=== PATIENT | female | born 1945 | race Caucasian/White ===

== ENCOUNTER 2020-04-08 14:09 | Outpatient (CLI) | payer MEDICARE, BC, SELFPAY ==
--- NOTE | ~2020-04-08 | DEXA_ITS ---
Bone Density Report Name: Thuy Chan Age: 75 Sex: Female Ethnicity: White Date of : 1945 Indication: postmenopausal; height loss; inflammatory bowel disease; prior fracture; hysterectomy; Referring Provider: JOAQUIN LARSEN Study: Bone densitometry was performed. Exam Date: April 08, 2020 Accession number: [id number] Bone Density: Region BMD T-score Z-score Classification AP Spine (L1, L2, L3) 1.067 0.4 2.9 Normal Femoral Neck (Left) 0.615 -2.1 0.1 Osteopenia Total Hip (Left) 0.737 -1.7 0.2 Osteopenia Total Hip Bilateral Avg 0.769 -1.5 0.4 Osteopenia Femoral Neck (Right) 0.693 -1.4 0.8 Osteopenia Total Hip (Right) 0.801 -1.2 0.7 Osteopenia World Health Organization criteria for BMD impression classify patients as: Normal (T-score at or above -1.0), Osteopenia (T-score between -1.0 and -2.5), or Osteoporosis (T-score at or below -2.5). 10-year Fracture Risk(1): Major Osteoporotic Fracture 23% Hip Fracture 8.9% Reported Risk Factors: [place] (), Neck BMD=0.615, BMI=24.8, previous fracture, smoking (1) FRAX(R) Version 3.08. Fracture probability calculated for an untreated patient. Fracture probability may be lower if the patient has received treatment. Clinical Information Provided by Patient: Has had a low trauma fracture Smokes Has used the following medications: Vitamin D, Calcium Has the following medical conditions: Inflammatory bowel diseases, Hysterectomy Patient maximum height was 64 Menopause Age: 37 Drinks caffeinated beverages Onset of menses at age 14 Number of children 2 Impression: The patient has low bone mass, based on the Left Femoral Neck T-score. The patient has an estimated ten-year risk of hip fracture of 8.9% and an estimated ten-year risk of major fracture of 23%, based on the WHO FRAX algorithm. The patient has risk factors, including: smoking, previous fracture. Discussion: BONE DENSITY IS LOW AT ONE OR MORE SKELETAL SITES. THE PATIENT'S BMD AND CLINICAL RISK FACTORS CONTRIBUTE TO THIS PATIENT'S HIGH RISK OF FRACTURE. This patient's lowest T-score is low at one or more skeletal sites. It meets the World Health Organization's (WHO) criteria for ?low bone mass? (T-score between -1.0 and -2.5). The patient's 10-year risk of hip fracture and 10 year risk of a major osteoporotic fracture as calculated by FRAX exceeds the threshold where pharmacological therapy is recommended by the National Osteoporosis Foundation (NOF). However, all treatment decisions require clinical judgment and consideration of individual patient factors, including patient preferences, comorbidities, previous drug use, risk factors not captured in the FRAX model (e.g., frailty, falls, vitamin D deficiency, increased bone turnover, interval significant decline in bone density) and
== END 2020-04-08 14:10 | disposition home or self-care (01) ==
PROVIDERS: PCP Family Medicine; Visit Provider Orthopaedic Surgery
DX: Z78.0 Asymptomatic menopausal state (principal); M85.852 Other specified disorders of bone density and structure, left thigh; M85.851 Other specified disorders of bone density and structure, right thigh
CPT/HCPCS: 77080

== ENCOUNTER 2022-12-21 07:39 | Inpatient (IN) | payer MEDICARE, SELFPAY ==
[2022-12-21] VITALS (33 sets, daily range): BP systolic 116–159; BP diastolic 64–114; PULSE 97–124; RESP 14–33; TEMP 36.2–37; O2SAT 93–100; BMI 23.8
--- NOTE | ~2022-12-21 | XR_ITS ---
EXAMINATION: XR chest 2V DATE: 12/21/2022 08:47 INDICATION: Cough and shortness of breath. TECHNIQUE: Frontal and lateral views of the chest were obtained. COMPARISON: Chest 2 views 05/19/2019 FINDINGS: There are small pleural effusions. There are airspace and interstitial opacities in the mid and lower lung zones with a basilar predominance. No pneumothorax. Cardiomegaly is noted. IMPRESSION: 1. Small pleural effusions. 2. Airspace and interstitial opacities in the mid and lower lung zones with a basilar predominance, c onsistent with pulmonary edema and/or pneumonia. 3. Cardiomegaly. Reviewed, dictated and finalized at location A. IMPRESSION: 1. Small pleural effusions. 2. Airspace and interstitial opacities in the mid and lower lung zones with a b asilar predominance, consistent with pulmonary edema and/or pneumonia. 3. Cardiomegaly.
--- NOTE | 2022-12-21 07:48 | ECG_ITS ---
Measurements Intervals [place] Rate: 117 P: -27 UT: 141 QRS: -38 QRSD: 146 T: 114 QT: 371 QTc: 519 Interpretive Statements SINUS OR ECTOPIC ATRIAL TACHYCARDIA LEFT AXIS DEVIATION LEFT BUNDLE BRANCH BLOCK BASELINE ARTIFACT- I, II, III, AVR, AVL, AVF ABNORMAL ECG NO PREVIOUS ECG AVAILABLE FOR COMPARISON Electronically Signed On 12-21-2022 9:02:42 CDT by Melchor Waters D.O.
--- NOTE | 2022-12-21 07:53 | ED.SOB ---
HPI - SOB/Dyspnea General Chief Complaint: Shortness of Breath/Dyspnea Stated Complaint: SOB Time Seen by Provider: 12/21/22 07:42 History of Present Illness HPI Narrative: Pt presents with worsening SOB. Pt seen at [facility] ED yesterday and diagnosed with pneumonia. Pt treated with nebs and steroids and given IV antibiotics and discharged. Pt says she was unable to sleep all night because she was so short of breath. 911 called. Pt got neb and steroids in route which improved her somewhat. Pt denies fever or CP. Related Data Home Medications Medication Instructions Recorded Confirmed omeprazole magnesium 20 mg 20 mg PO DAILY 05/09/19 12/21/22 tablet,delayed release (Prilosec OTC) bisoprolol 5 1 tablet PO DAILY 12/21/22 12/21/22 mg-hydrochlorothiazide 6.25 mg tablet paroxetine HCl 20 mg tablet 20 mg PO DAILY 12/21/22 12/21/22 ropinirole 0.5 mg tablet 0.5 mg PO DAILY 12/21/22 12/21/22 Allergies Allergy/AdvReac Type Severity Reaction Status Date / Time codeine Allergy Unknown Stomatitis Verified 06/11/22 14:30 oxycodone AdvReac Intermediate Unknown Verified 06/11/22 14:30 Review of Systems Review of Systems: All systems reviewed & are unremarkable except as noted in HPI and below PMFSH Past Medical History Medical History (Updated 12/21/22 @ 16:34 by Vannessa Hawkins NP) Anxiety Chronic diarrhea Fatigue Hyperlipidemia Hypertension Idiopathic pancreatitis Irritable bowel syndrome Diarrhea Snoring Sphincter of Oddi dysfunction Surgical History Surgical History (Updated 12/21/22 @ 16:29 by Vannessa Hawkins NP) History of bunionectomy History of cataract extraction with lens replacement History of detached retina repair History of foot surgery History of hysterectomy Hx of cholecystectomy Family History Family History Sibling IBS (irritable bowel syndrome) Grandparent Colitis Other Carcinoma of colon Sphincter of Oddi dysfunction Social History Social History (Updated 12/21/22 @ 16:36 by Vannessa Hawkins NP) Social History: The patient continues to smoke about half pack a cigarettes a day. Patient is . She typically lives home alone but spends several days with her daughter. She has 2 children. She is retired from a [employer]. Code status full code Smoking packs per day: 1 Smoking cigarettes per day: 20.0 Years smoked: 10 Smoking pack-years: 10.00 Smoking status: Former smoker Tobacco type: cigarettes Second hand tobacco smoke exposure: No Smoking end date: 12/07/22 Alcohol intake: never Alcohol use details: Ocassional Substance use: never Substance use type: does not use Lack of Transportation: No Lack of Food: Never True Current Housing: I Have Housing Concerned About Future Housing: No Difficulty Paying Gas/Electric Bills: No Difficulty Paying for Meds: No Currently Unemployed: No Education: High School Diploma/GED Difficulty w/ Childcare or Family Care: No Living arrangements: alone Occupation/Education: retired Gender identity (if verbalized by the patient): Female Spiritual care concerns: No Exam Const: General: healthy appearing and no acute distress Nutritional Appearance: well nourished Orientation/consciousness: patient oriented x3 Limitations: no limitations Chest: Chest palpation & inspection: normal inspection of the chest Resp: Effort & Inspection: labored, retractions and tachypneic Auscultation: wheezes Cardio: Rate: regular rate Rhythm: regular rhythm GI: GI Palp: Yes Soft to palpation Auscultation: normal bowel sounds Skin: General skin exam: normal color Rashes: no rashes Neuro: General: patient oriented x3, moves all extremities, no meningeal signs, no focal motor deficits and CN's II-XI intact bilaterally Cranial nerves: Yes Nystagmus not present Speech: normal speech Extrem: General: normal to inspe
[2022-12-21] MEDS: IPRATROPIUM BR 0.02% INH SOLN 0.5 MG/2.5 ML VIAL INHALATION ×2 (08:01→20:18)
[2022-12-21] MEDS: ALBUTEROL SULFATE NEB 2.5 MG/3 ML INH INHALATION ×2 (08:01→20:18)
[2022-12-21 09:29] LABS: Basophils Absolute Auto 0.1 K/mm3 (0.0-0.1); Basophils Percent Auto 1.8 % (0.2-1.2); Eosinophils Absolute Auto 0.1 K/mm3 (0-0.3); Eosinophils Percent Auto 2.3 % (0-4.4); Hematocrit 30.8 % (37.0-47.0); Hemoglobin 9.7 g/dL (12.0-15.0); Immature Granulocyte Absolute 0.05 K/mm3 (0.00-0.031); Immature Granulocyte Percent A 0.8 % (0-0.5); Lymphocytes Absolute Auto 1.31 K/mm3 (0.9-3.2); Lymphocytes Percent Auto 21.9 % (18.3-44.2); Mean Corpuscular HGB Conc 31.5 g/dl (32-36); Mean Corpuscular Hemoglobin 27.3 pg (26-34); Mean Corpuscular Volume 86.8 fl (80-100); Mean Platelet Volume 11.2 fl (7.4-10.4); Monocytes Absolute Auto 0.5 K/mm3 (0.1-0.6); Monocytes Percent Auto 8.2 % (2.6-8.5); Neutrophils Absolute Auto 3.9 K/mm3 (1.3-6.7); Platelet Count Result 333 k/mm3 (150-375); Red Blood Count 3.55 M/mm3 (4.2-5.4); Red Cell Distribution Width 15.5 % (11.5-14.5)
[2022-12-21 09:39] LABS: INR 1.1; Prothrombin Time 14.2 Seconds (11.1-14.7)
[2022-12-21 09:41] LABS: Partial Thromboplastin Time 32.4 SECONDS (22.3-36.8)
[2022-12-21 09:44] LABS: Alanine Aminotransferase 13 U/L (6-35); Albumin Level 3.9 g/dL (3.5-5.1); Alkaline Phosphatase 88 U/L (38-126); Anion Gap 7 mmol/L (8-16); Aspartate Amino Transferase 22 U/L (14-36); Bilirubin,Total 0.7 mg/dL (0.2-1.3); Blood Urea Nitrogen 15 mg/dL (7-17); CRP 2.5 mg/dL (<1.0); Calcium 8.7 mg/dL (8.4-10.2); Carbon Dioxide 23 mmol/L (22-30); Chloride 106 mmol/L (98-107); Estimated Glomerular Filt Rate 60; Glucose 113 mg/dL (65-110); Potassium 3.6 mmol/L (3.4-5.0); Sodium 136 mmol/L (137-145)
[2022-12-21 09:50] LABS: NT Pro B Type Natriuretic Pept 12400 pg/mL (19.9-100)
[2022-12-21 10:05] LABS: Lactic Acid Reflex 1.3 mmol/L (0.7-2.0)
[2022-12-21] MEDS: FUROSEMIDE INJ 40 MG/4 ML VIAL IV PUSH (11:08)
[2022-12-21] MEDS: cefTRIAXone 2 GM/NS 100 ML 2 GM/100 ML BAG IVPB (12:37)
[2022-12-21] MEDS: AZITHROMYCIN 500 MG/NS 250 ML 500 MG/250 ML BAG 250 MG IVPB (12:38)
--- NOTE | 2022-12-21 15:33 | PM.IMHP ---
H&P: HPI History of Present Illness Date/Time: 12/21/22 15:33 Chief Complaint: Shortness of breath Narrative: This is a 77-year-old female patient who smokes approximately half of pack a cigarettes a day. The patient denies that she has any COPD. She does not wear any oxygen at home. The patient stated that she went to an outside facility yesterday and was diagnosed with pneumonia. The daughter stated that she was given a bag of antibiotics and discharged to home. The patient was having difficulty sleeping last night due to shortness of breath. The patient stated she just did not feel right today and therefore her daughter called the ambulance. She denies any fever chills. She denies any thick sputum. Chest x-ray was read as small pleural effusion. Airspace and interstitial opacities in the mid and lower lung zones with bibasilar predominance, consistent with pulmonary edema and or pneumonia. Cardiomegaly. Patient denies any history of congestive heart failure. The patient was given a nebulizer treatment, Rocephin, azithromycin, and Lasix in the emergency room. The patient is currently on oxygen at 3 L per nasal cannula and does not typically wear oxygen. The lowest recorded pulse ox today was 93%. The patient has been staying with her daughter. The patient's daughter called 911 this morning. Her H&H is 9.7 and 30.8. Her sodium is slightly low at 136. Troponin was 0.056. BNP 44456. C reactive protein 2.5. The patient is being admitted to inpatient status on the date of service of 12/21/2022. Review of Systems Review of Systems: All systems reviewed & are unremarkable except as noted in HPI and below Constitutional: Constitutional: Reports as per HPI and Reports no additional constitutional complaints Eyes: Eyes: Reports as per HPI and Reports no additional eye complaints ENT: Reports system reviewed and no additional complaints, except as documented and Reports Normal hearing present Cardiovascular: Cardiovascular: Reports no additional cardiovascular complaints Respiratory: Respiratory: Reports no additional respiratory complaints and Reports no additional respiratory complaints Gastrointestinal: Gastrointestinal: Reports as per HPI and Reports no additional gastrointestinal complaints Musculoskeletal: Musculoskeletal: Reports no additional musculoskeletal complaints Integumentary/Breasts: Skin/Breast: Reports system reviewed and no additional complaints, except as docu and Reports as per HPI Neurologic: Reports system reviewed and no additional complaints, except as documented, Reports as per HPI and Reports Normal hearing present Psychiatric: Psychiatric: Reports no additional psychiatric complaints and Reports as per HPI Endocrine: Endocrine: Reports no additional endocrine complaints Hematologic/Lymphatic: Hematologic/Lymphatic: Reports no additional hematologic/lymphatic complaints Allergic/Immunologic: Allergic/Immunologic: Reports no additional allergic/immunologic complaints [facility] Past Medical History Medical History (Updated 12/21/22 @ 16:34 by Vannessa Hawkins NP) Anxiety Chronic diarrhea Fatigue Hyperlipidemia Hypertension Idiopathic pancreatitis Irritable bowel syndrome Diarrhea Snoring Sphincter of Oddi dysfunction Surgical History Surgical History (Updated 12/21/22 @ 16:29 by Vannessa Hawkins NP) History of bunionectomy History of cataract extraction with lens replacement History of detached retina repair History of foot surgery History of hysterectomy Hx of cholecystectomy Family History Family History Sibling IBS (irritable bowel syndrome) Grandparent Colitis Other Carcinoma of colon Sphincter of Oddi dysfunction Social History Social History (Updated 12/21/22 @ 16:36 by Vannessa Hawkins NP) Social History: The patient continues to smoke about half pack a cigarettes a day. Patient is . She typically
[2022-12-21 15:49] LABS: Troponin I 0.056 ng/mL (0.000-0.034)
[2022-12-21] MEDS: LORazepam (*CRX) 1 MG TABLET PO (16:00)
[2022-12-21 19:22] LABS: Lipase 28 U/L (23-300)
[2022-12-21 19:41] LABS: Troponin I 0.069 ng/mL (0.000-0.034)
[2022-12-21] MEDS: GABAPENTIN 300 MG CAPSULE PO (20:10)
[2022-12-21 20:56] LABS: Troponin I 0.079 ng/mL (0.000-0.034)
[2022-12-22] VITALS (18 sets, daily range): BP systolic 110–128; BP diastolic 62–89; PULSE 73–108; RESP 14–20; TEMP 36.6–37.2; O2SAT 90–97; BMI 23.8
--- NOTE | 2022-12-22 | ECHO_ITS ---
Patient Info Name: Thuy Chan Age: 77 years : 1945 Gender: Female Ht: 63 in Wt: 134 lbs BSA: 1.65 m2 HR: 102 bpm BP: 121 / 63 mmHg Heart Rhythm: Sinus Rhythm Technical Quality: Good Exam Date: 12/22/2022 9:01 AM Exam Location: [facility] Card Pulmonary Patient Status: Inpatient Admit Date: 12/21/2022 Staff Ordering Physician: Vannessa Hawkins NP Personal Lines Underwriter: Isabel Jose RDCS Attending Provider: Cynthia Fu DO Referring Physician: Shruthi MAJOR; Exam Type: CA echo doppler color flow Study Info Indications - pulmonary edema Complete two-dimensional, color flow and Doppler transthoracic echocardiogram is performed. Summary 1. Complete two-dimensional, color flow and Doppler transthoracic echocardiogram is performed. 2. Normal left ventricular size with mild concentric hypertrophy. Severe global hypokinesis present. Ejection fraction 20-25%. Grade 2 diastolic dysfunction is present. 3. Mild right ventricular enlargement and hypokinesis. 4. Moderate left atrial enlargement. 5. Moderate to moderately severe mitral regurgitation. 6. Mild tricuspid regurgitation. 7. Normal estimated pulmonary pressure. 8. Normal sinus rhythm with a BBB. Left Ventricle Left ventricular chamber dimension is normal. Left ventricular systolic function is severely reduced, estimated at 20-25%. There is mildly increased left ventricular wall thickness. Left ventricular septal wall motion is normal. The left ventricular diastolic function is grade II diastolic dysfunction. Right Ventricle Right ventricular chamber dimension is mildly enlarged. Right ventricular systolic function is reduced. Linear artifact in right ventricle suggestive of catheter(s), pacemaker lead(s), or ICD lead(s). Left Atria Left atrial chamber dimension is moderately enlarged. Right Atria Right atrial chamber dimension is normal. Aortic Valve The aortic valve is trileaflet. There is no aortic valve sclerosis. There is no aortic valve stenosis. There is no aortic valve regurgitation. Pulmonic Valve The pulmonic valve is normal. There is no pulmonic valve stenosis. There is no pulmonic regurgitation. Mitral Valve The mitral valve has normal leaflets. There is no mitral valve stenosis. There is moderate to severe mitral valve regurgitation. Tricuspid Valve The tricuspid valve leaflets are normal. There is no significant tricuspid valve stenosis. There is mild tricuspid valve regurgitation. No pulmonary hypertension, estimated pulmonary arterial systolic pressure is 34 mmHg. Pericardium/Pleural The pericardium appears normal. There is no pericardial effusion. Inferior Vena Cava Normal inferior vena cava with >50% collapse upon inspiration consistent with Empty right atrial pressure, 10 mmHg. Aorta The aortic root size at the sinus of Valsalva is normal. The prox ascending aorta size is normal. Left Ventricular Outflow Tract Name Value Normal LVOT 2D LVOT Diameter 1.8 cm LVOT Doppler LVOT Peak Gradient 2 mmHg LVOT Mean Gradient 1 mmHg LVOT VTI 17 cm LVOT VTI/AV VTI Ratio 0.9
[2022-12-22] MEDS: ALBUTEROL SULFATE NEB 2.5 MG/3 ML INH INHALATION ×4 (02:15→19:22)
[2022-12-22] MEDS: IPRATROPIUM BR 0.02% INH SOLN 0.5 MG/2.5 ML VIAL INHALATION ×4 (02:15→19:23)
[2022-12-22 05:48] LABS: Basophils Percent Auto 0.3 % (0.2-1.2); Eosinophils Absolute Auto 0.2 K/mm3 (0-0.3); Eosinophils Percent Auto 2.6 % (0-4.4); Hemoglobin 8.1 g/dL (12.0-15.0); Immature Granulocyte Absolute 0.08 K/mm3 (0.00-0.031); Immature Granulocyte Percent A 1.4 % (0-0.5); Lymphocytes Absolute Auto 1.29 K/mm3 (0.9-3.2); Mean Corpuscular HGB Conc 31.2 g/dl (32-36); Mean Corpuscular Hemoglobin 27.6 pg (26-34); Mean Corpuscular Volume 88.4 fl (80-100); Mean Platelet Volume 10.8 fl (7.4-10.4); Monocytes Absolute Auto 0.6 K/mm3 (0.1-0.6); Monocytes Percent Auto 10.7 % (2.6-8.5); Neutrophils Absolute Auto 3.7 K/mm3 (1.3-6.7); Platelet Count Result 281 k/mm3 (150-375); Red Blood Count 2.94 M/mm3 (4.2-5.4); Red Cell Distribution Width 15.8 % (11.5-14.5); White Blood Count 5.9 K/mm3 (4.5-10.0)
[2022-12-22 06:04] LABS: Alanine Aminotransferase 11 U/L (6-35); Albumin Level 3.2 g/dL (3.5-5.1); Alkaline Phosphatase 63 U/L (38-126); Anion Gap 3 mmol/L (8-16); Aspartate Amino Transferase 19 U/L (14-36); Bilirubin,Total 0.3 mg/dL (0.2-1.3); Blood Urea Nitrogen 20 mg/dL (7-17); Calcium 8.3 mg/dL (8.4-10.2); Carbon Dioxide 24 mmol/L (22-30); Chloride 105 mmol/L (98-107); Creatine Kinase 87 U/L (30-135); Estimated CRCL calculation 33 ml/min; Estimated Glomerular Filt Rate 53; Glucose 109 mg/dL (65-110); Lipase 32 U/L (23-300); Magnesium 2.2 mg/dL (1.6-2.3); Potassium 3.2 mmol/L (3.4-5.0); Sodium 132 mmol/L (137-145)
[2022-12-22] MEDS: AZITHROMYCIN 500 MG/NS 250 ML 500 MG/250 ML BAG 250 MG IVPB (08:14)
[2022-12-22] MEDS: rOPINIRole HCL 0.5 MG TABLET PO (08:17)
[2022-12-22] MEDS: LIPASE/AMYLASE/PROTEASE 12,000 UNITS CAP 2 CAP PO ×3 (08:17→16:58)
[2022-12-22] MEDS: hydroCHLOROthiazide 6.25 MG TABLET PO (08:17)
[2022-12-22] MEDS: bisoproloL fumarate 5 MG TABLET PO (08:17)
[2022-12-22] MEDS: ROSUVASTATIN 20 MG TABLET 40 MG PO (08:17)
[2022-12-22] MEDS: PARoxetine 20 MG TABLET PO (08:17)
[2022-12-22] MEDS: PANTOPRAZOLE 40 MG TABLET PO (08:17)
--- NOTE | 2022-12-22 11:35 | PM.IMPN ---
Progress Note: A&P Assessment and Plan (1) Pneumonia: Code(s): J18.9 - Pneumonia, unspecified organism Status: Acute Assessment and Plan: Rocephin and azithromycin started 12/21 Home O2 eval ordered and pending (2) CHF (congestive heart failure): Code(s): I50.9 - Heart failure, unspecified Status: Acute Assessment and Plan: Echo ordered and pending, Lasix IV x1 12/21 (3) Chronic diarrhea: Code(s): K52.9 - Noninfective gastroenteritis and colitis, unspecified Status: Acute Assessment and Plan: Continue Bentyl for IBS (4) History of tobacco abuse: Onset Date: 2010 Code(s): Z87.891 - Personal history of nicotine dependence Status: Acute Assessment and Plan: Continue nicotine patch, smoking cessation recommended (5) Sphincter of Oddi dysfunction: Code(s): K83.4 - Spasm of sphincter of Oddi Status: Acute Assessment and Plan: Continue pancrease enzymes (6) Hyperlipidemia: Qualifiers: Hyperlipidemia type: mixed hyperlipidemia Qualified Code(s): E78.2 - Mixed hyperlipidemia Code(s): E78.5 - Hyperlipidemia, unspecified Status: Acute Assessment and Plan: Continue with rosuvastatin (7) Hypertension: Qualifiers: Hypertension type: essential hypertension Qualified Code(s): I10 - Essential (primary) hypertension Code(s): I10 - Essential (primary) hypertension Status: Acute Assessment and Plan: Continue with home medications. (8) Anxiety: Code(s): F41.9 - Anxiety disorder, unspecified Status: Acute Assessment and Plan: Continue with lorazepam and paroxetine (9) Idiopathic pancreatitis: Code(s): K85.00 - Idiopathic acute pancreatitis without necrosis or infection Status: Acute Assessment and Plan: Continue pancrease Plan DVT prophylaxis with SCDs GI prophylaxis with PPI Code status full code Subjective Date/time seen: 12/22/22 11:35 Interval history: 77-year-old female with history of tobacco dependence and COPD is presenting with shortness of breath after being diagnosed with pneumonia at an urgent care facility and starting antibiotics yesterday. No overnight events noted. No chest pain or shortness of breath. No nausea, vomiting or diarrhea. No fevers or chills. She still feels a little weak with occasional cough. Review of Systems Review of Systems: 12 point review of systems was assessed and was negative except as noted in the HPI Exam Narrative: General: No acute distress, alert and oriented per baseline HEENT: Atraumatic, normocephalic, mucous membranes moist CV: Regular rate and rhythm, S1, S2 Lungs: Significant crackles in left lower lobe, the rest is relatively clear, no wheeze Abdomen: Soft, nontender, nondistended Extremities: Normal to inspection Skin: No rashes noted, no lesions or wounds seen Psych: Euthymic, normal affect Objective Data Vital Signs Vital Signs: Vital Signs - 24 hr 12/21/22 12:43 12/21/22 11:46 12/21/22 12:01 Temperature Pulse Rate Respiratory Rate Blood Pressure 157/82 H 152/77 H Pulse Oximetry 98 Oxygen Delivery Nasal Cannula Oxygen Flow Rate 3 12/21/22 12:16 12/21/22 12:37 12/21/22 12:45 Temperature Pulse Rate Respiratory Rate Blood Pressure 131/64 116/74 134/67 Pulse Oximetry 95 94 Oxygen Delivery Oxygen Flow Rate 12/21/22 13:24 12/21/22 16:31 12/21/22 16:00 Temperature 97.9 F Pulse Rate 99 102 H Respiratory Rate 27 H Blood Pressure 132/74 Pulse Oximetry 94 95 Oxygen Delivery Nasal Cannula Oxygen Flow Rate 3 12/21/22 20:21 12/21/22 20:21 12/21/22 22:00 Temperature 97.1 F L Pulse Rate 98 100 Respiratory Rate 20 14 Blood Pressure 134/88 Pulse Oximetry 95 98 Oxygen Delivery Nasal Cannula Oxygen Flow Rate 3 12/21/22
[2022-12-22] MEDS: POTASSIUM CHLORIDE 20 MEQ ER TABLET 40 MEQ PO (12:07)
[2022-12-22] MEDS: GABAPENTIN 300 MG CAPSULE PO (20:43)
[2022-12-22] MEDS: LORazepam (*CRX) 1 MG TABLET PO (20:50)
[2022-12-23] VITALS (19 sets, daily range): BP systolic 105–117; BP diastolic 54–75; PULSE 75–105; RESP 16–18; TEMP 36.3–37.2; O2SAT 94–97
[2022-12-23] MEDS: IPRATROPIUM BR 0.02% INH SOLN 0.5 MG/2.5 ML VIAL INHALATION ×4 (02:03→19:56)
[2022-12-23] MEDS: ALBUTEROL SULFATE NEB 2.5 MG/3 ML INH INHALATION ×4 (02:03→19:56)
[2022-12-23] MEDS: LORazepam (*CRX) 1 MG TABLET PO ×2 (04:54→21:05)
[2022-12-23 06:39] LABS: Basophils Absolute Auto 0.1 K/mm3 (0.0-0.1); Basophils Percent Auto 1.2 % (0.2-1.2); Eosinophils Absolute Auto 0.4 K/mm3 (0-0.3); Eosinophils Percent Auto 6.1 % (0-4.4); Hematocrit 28.1 % (37.0-47.0); Hemoglobin 8.7 g/dL (12.0-15.0); Immature Granulocyte Absolute 0.04 K/mm3 (0.00-0.031); Immature Granulocyte Percent A 0.6 % (0-0.5); Lymphocytes Absolute Auto 1.97 K/mm3 (0.9-3.2); Lymphocytes Percent Auto 30.2 % (18.3-44.2); Mean Corpuscular Hemoglobin 27.7 pg (26-34); Mean Corpuscular Volume 89.5 fl (80-100); Mean Platelet Volume 11.3 fl (7.4-10.4); Monocytes Absolute Auto 0.5 K/mm3 (0.1-0.6); Monocytes Percent Auto 7.4 % (2.6-8.5); Neutrophils Absolute Auto 3.6 K/mm3 (1.3-6.7); Neutrophils Percent Auto 54.5 % (45.5-73.1); Platelet Count Result 314 k/mm3 (150-375); Red Blood Count 3.14 M/mm3 (4.2-5.4); Red Cell Distribution Width 15.9 % (11.5-14.5); White Blood Count 6.5 K/mm3 (4.5-10.0)
[2022-12-23 06:50] LABS: Alanine Aminotransferase 14 U/L (6-35); Albumin Level 3.5 g/dL (3.5-5.1); Alkaline Phosphatase 65 U/L (38-126); Anion Gap 4 mmol/L (8-16); Aspartate Amino Transferase 23 U/L (14-36); Bilirubin,Total 0.3 mg/dL (0.2-1.3); Blood Urea Nitrogen 26 mg/dL (7-17); Calcium 8.8 mg/dL (8.4-10.2); Carbon Dioxide 24 mmol/L (22-30); Chloride 103 mmol/L (98-107); Estimated CRCL calculation 30 ml/min; Estimated Glomerular Filt Rate 48; Glucose 96 mg/dL (65-110); Potassium 4.1 mmol/L (3.4-5.0); Sodium 131 mmol/L (137-145)
[2022-12-23] MEDS: PARoxetine 20 MG TABLET PO (08:36)
[2022-12-23] MEDS: AZITHROMYCIN 500 MG/NS 250 ML 500 MG/250 ML BAG 250 MG IVPB (08:36)
[2022-12-23] MEDS: PANTOPRAZOLE 40 MG TABLET PO (08:36)
[2022-12-23] MEDS: bisoproloL fumarate 5 MG TABLET PO (08:37)
[2022-12-23] MEDS: rOPINIRole HCL 0.5 MG TABLET PO (08:37)
[2022-12-23] MEDS: LIPASE/AMYLASE/PROTEASE 12,000 UNITS CAP 2 CAP PO ×3 (08:37→16:09)
[2022-12-23] MEDS: hydroCHLOROthiazide 6.25 MG TABLET PO (08:37)
[2022-12-23] MEDS: ROSUVASTATIN 20 MG TABLET 40 MG PO (08:37)
--- NOTE | 2022-12-23 10:12 | P.CDI_ITS ---
CDI Query Clarification Request Elevated BNP on 12/21/22 lab work. CHF noted on the assessment and plan. Pulmonary edema noted on the 12/21/22 chest xray. Patient receiving Lasix. Please specify type and acuity of heart failure if known. * Acute * Chronic * Acute on Chronic * Unknown * Systolic * Diastolic * Combined Systolic and Diastolic * Unknown <Katy Metz RN - Last Filed: 12/23/22 10:16> Clarified Diagnosis Clarified Diagnosis: Unknown chronicity Systolic HF <Florinda Luna MD - Last Filed: 12/23/22 12:14>
--- NOTE | 2022-12-23 12:05 | PM.IMPN ---
Progress Note: A&P Assessment and Plan (1) Pneumonia: Code(s): J18.9 - Pneumonia, unspecified organism Status: Acute (2) CHF (congestive heart failure): Code(s): I50.9 - Heart failure, unspecified Status: Acute (3) Chronic diarrhea: Code(s): K52.9 - Noninfective gastroenteritis and colitis, unspecified Status: Acute (4) History of tobacco abuse: Onset Date: 2010 Code(s): Z87.891 - Personal history of nicotine dependence Status: Acute (5) Sphincter of Oddi dysfunction: Code(s): K83.4 - Spasm of sphincter of Oddi Status: Acute (6) Hyperlipidemia: Qualifiers: Hyperlipidemia type: mixed hyperlipidemia Qualified Code(s): E78.2 - Mixed hyperlipidemia Code(s): E78.5 - Hyperlipidemia, unspecified Status: Acute (7) Hypertension: Qualifiers: Hypertension type: essential hypertension Qualified Code(s): I10 - Essential (primary) hypertension Code(s): I10 - Essential (primary) hypertension Status: Acute (8) Anxiety: Code(s): F41.9 - Anxiety disorder, unspecified Status: Acute (9) Idiopathic pancreatitis: Code(s): K85.00 - Idiopathic acute pancreatitis without necrosis or infection Status: Acute Plan 77-year-old female with history of tobacco dependence and COPD is presenting with shortness of breath after being diagnosed with pneumonia at an urgent care facility and starting antibiotics yesterday. 1)Acute Resp Failure: ?2/2 PNA+ New Diagnosis of HF(Systolic, ?acute) c/w O2 support Start on IV lasix Strict I/O Daily weight Cardiology consult c/w Ceftriaxone+Azithromycin c/w albuterol, ipratropium 2)Elevated troponin: Cardiology has been consulted as above 3)HTN:C/w HCTZ 4)DVT ppx: Hep SQ 5)Code:Full 6)Dispo:pending improvement Time Spent With Patient Time with patient: 25 - 35 minutes Subjective Date/time seen: 12/23/22 12:05 Interval history: c/o SOB On O2 support Denies chest pain Review of Systems Review of Systems: 12 point review of systems was assessed and was negative except as noted in the HPI Exam Narrative: General: No acute distress, alert and oriented per baseline HEENT: Atraumatic, normocephalic, mucous membranes moist CV: Regular rate and rhythm, S1, S2 Lungs: Significant crackles in left lower lobe, the rest is relatively clear, no wheeze Abdomen: Soft, nontender, nondistended Extremities: Normal to inspection Skin: No rashes noted, no lesions or wounds seen Psych: Euthymic, normal affect Objective Data Vital Signs Vital Signs: Vital Signs - 24 hr 12/22/22 12:17 12/22/22 13:35 12/22/22 13:45 Temperature Pulse Rate 88 91 Respiratory Rate 18 18 Blood Pressure Pulse Oximetry 95 Oxygen Delivery Nasal Cannula Oxygen Flow Rate 2 Fraction of Inspired Oxygen 12/22/22 14:00 12/22/22 16:00 12/22/22 19:25 Temperature 97.9 F Pulse Rate 104 H 97 96 Respiratory Rate 18 18 Blood Pressure 128/89 Pulse Oximetry 97 Oxygen Delivery Oxygen Flow Rate Fraction of Inspired Oxygen 12/22/22 19:32 12/22/22 19:36 12/22/22 20:40 Temperature 98.1 F Pulse Rate 96 94 83 Respiratory Rate 18 18 16 Blood Pressure 110/62 Pulse Oximetry 96 90 Oxygen Delivery Nasal Cannula Oxygen Flow Rate 3 Fraction of Inspired Oxygen 12/23/22 02:03 12/23/22 02:17 12/22/22 20:00 Temperature Pulse Rate 89 86 90 Respiratory Rate 18 18 Blood Pressure Pulse Oximetry Oxygen Delivery Oxygen Flow Rate Fraction of Inspired Oxygen 12/23/22 00:00 12/23/22 04:00 12/23/22 04:40 Temperature 97.9 F Pulse Rate 91 97 80 Respiratory Rate 18 Blood Pressure 111/75 Pulse Oximetry 94 Oxygen Delivery Oxygen Flow Rate Fraction of Inspired Oxygen 12/23/22 06:05 12/23/22 06:13 12/23/22 08:50 Temperature Pulse Rate 96 93 105 H Respiratory Rate 18 18 16
--- NOTE | 2022-12-23 12:10 | PM.CNCAR ---
Assessment and Plan Assessment and plan (1) Acute combined systolic and diastolic congestive heart failure: Code(s): I50.41 - Acute combined systolic (congestive) and diastolic (congestive) heart failure Status: Acute Assessment and Plan: New onset CHF and cardiomyopathy. Etiology uncertain, may be idiopathic, or 2nd LBBB, r/o CAD or a primary valvular CM (doubt). Counseled pt and daughters extensively about CHF, CM, evaluation (ischemia eval), low salt diet, modest fluid restriction, medical tx and side effects, risk of SCD, poss eventual ICD or BiV pacer, prognosis, etc. --Diurese with IV furosemide 40 mg daily, with Kcl; eval need and dose on discharge. --Daily BMP --Cont bisoprolol, which is one of the BBs effective in tx CHF, titrate to 10 mg daily as OPT --Add spironolactone 12.5 mg daily --Add Entresto, if affordable --Add Jardiance, if affordable --Eventual ischemia eval, preferable with a heart cath (Lexiscan is an alternative) as she has multiple risk factors for CAD and (atypical) CP. Still orthopneic so can't schedule for tmr; perhaps Wednesday or as OPT. --Possible Life Vest on discharge --Possible BiV pacer +/- ICD if EF remains low after 90 days tx (2) Cardiomyopathy: Code(s): I42.9 - Cardiomyopathy, unspecified Status: Acute Assessment and Plan: New, EF 20-25%. --Eval and Tx as above (3) LBBB (left bundle branch block): Code(s): I44.7 - Left bundle-branch block, unspecified Status: Acute Assessment and Plan: New since 2019. May eventually benefit fr a BiV pacer. (4) Mitral regurgitation: Code(s): I34.0 - Nonrheumatic mitral (valve) insufficiency Status: Acute Assessment and Plan: Moderate to moderately severe, prob a result of the CM not the cause. Hope to see it improve w/ CHF tx. (5) Hypertension: Qualifiers: Hypertension type: essential hypertension Qualified Code(s): I10 - Essential (primary) hypertension Code(s): I10 - Essential (primary) hypertension Status: Acute Assessment and Plan: BP mildly elevated on admission, now at goal. (6) Hyperlipidemia: Qualifiers: Hyperlipidemia type: mixed hyperlipidemia Qualified Code(s): E78.2 - Mixed hyperlipidemia Code(s): E78.5 - Hyperlipidemia, unspecified Status: Acute Assessment and Plan: Total chol 222 with LDL of 143 in May 2022. Not on statin? --Taking rosuvastatin 40 mg --Repeat lipid panel (7) Hypokalemia: Code(s): E87.6 - Hypokalemia Status: Acute Assessment and Plan: Supplemented. --Daily BMP (8) Anemia: Code(s): D64.9 - Anemia, unspecified Status: Acute Assessment and Plan: Follow H&H; no overt bleeding. (9) Tobacco use: Code(s): Z72.0 - Tobacco use Status: Acute Assessment and Plan: Tobacco cessation encouraged. History of Present Illness History of Present Illness Consult date/time: 12/23/22 12:10 Reason For Visit: Pneumonia/CHF Narrative: Thuy Chan is a 77 y.o. female whom we were asked to see for our advice and opinion regarding her new cardiomyopathy and CHF, in consultation. The patient has a history of tobacco use, hypertension, hyperlipidemia, TIA. No prior heart disease. The patient went to an outside emergency room on December 20 with shortness of breath and was diagnosed with pneumonia. She was sent home with antibiotics but returned to our emergency room on 12/21/2022 with shortness of breath. She was admitted with a diagnosis of pneumonia and CHF. Thept relates that she has been SOB w/ orthopnea for about 1 month. She experiences some chest heaviness which comes and goes, nonexertional, which can radiate down her left arm and can last up to 2-3 hours. She had an episode of severe dizziness and near syncope getting off the toilet 1 month ago, and fell. No h/o palpitations or edema. Hematocrit 31 on admiss
--- NOTE | 2022-12-23 13:44 | PCCCNOTE ---
On 12/23/22, the student, [Juany Hugo ], provided care and completed [facility] documentation on this patient. I have reviewed the student's documentation and agree with the findings.
[2022-12-23] MEDS: FUROSEMIDE INJ 40 MG/4 ML VIAL IV PUSH (16:10)
[2022-12-23] MEDS: GABAPENTIN 300 MG CAPSULE PO (20:50)
[2022-12-23] MEDS: HEPARIN SODIUM 5,000 UNITS/ML VIAL 5000 UNITS SUB-Q (20:50)
[2022-12-23] MEDS: SACUBITRIL/VALSARTAN 24-26 MG TABLET 1 TAB PO (20:51)
[2022-12-24] VITALS (19 sets, daily range): BP systolic 98–121; BP diastolic 54–71; PULSE 71–102; RESP 16–22; TEMP 36.3–37.1; O2SAT 92–97
[2022-12-24] MEDS: IPRATROPIUM BR 0.02% INH SOLN 0.5 MG/2.5 ML VIAL INHALATION ×4 (02:14→20:10)
[2022-12-24] MEDS: ALBUTEROL SULFATE NEB 2.5 MG/3 ML INH INHALATION ×4 (02:14→20:10)
[2022-12-24 07:01] LABS: Basophils Absolute Auto 0.1 K/mm3 (0.0-0.1); Basophils Percent Auto 2.2 % (0.2-1.2); Eosinophils Absolute Auto 0.4 K/mm3 (0-0.3); Eosinophils Percent Auto 6.8 % (0-4.4); Hematocrit 29.2 % (37.0-47.0); Hemoglobin 8.7 g/dL (12.0-15.0); Immature Granulocyte Absolute 0.03 K/mm3 (0.00-0.031); Immature Granulocyte Percent A 0.6 % (0-0.5); Immature Platelet Fraction Pct 7.3 % (0.9-11.2); Lymphocytes Absolute Auto 1.73 K/mm3 (0.9-3.2); Lymphocytes Percent Auto 33.9 % (18.3-44.2); Mean Corpuscular HGB Conc 29.8 g/dl (32-36); Mean Corpuscular Hemoglobin 27.3 pg (26-34); Mean Corpuscular Volume 91.5 fl (80-100); Mean Platelet Volume 11.4 fl (7.4-10.4); Monocytes Absolute Auto 0.5 K/mm3 (0.1-0.6); Monocytes Percent Auto 9.8 % (2.6-8.5); Neutrophils Absolute Auto 2.4 K/mm3 (1.3-6.7); Neutrophils Percent Auto 46.7 % (45.5-73.1); Platelet Count Result 303 k/mm3 (150-375); Red Blood Count 3.19 M/mm3 (4.2-5.4); Red Cell Distribution Width 15.8 % (11.5-14.5); White Blood Count 5.1 K/mm3 (4.5-10.0)
[2022-12-24 07:10] LABS: Alanine Aminotransferase 13 U/L (6-35); Albumin Level 3.5 g/dL (3.5-5.1); Alkaline Phosphatase 66 U/L (38-126); Anion Gap 8 mmol/L (8-16); Aspartate Amino Transferase 23 U/L (14-36); Bilirubin,Total 0.3 mg/dL (0.2-1.3); Blood Urea Nitrogen 29 mg/dL (7-17); Calcium 8.3 mg/dL (8.4-10.2); Carbon Dioxide 24 mmol/L (22-30); Chloride 104 mmol/L (98-107); Cholesterol 150 mg/dL (0-200); Estimated CRCL calculation 24 ml/min; Estimated Glomerular Filt Rate 36; Glucose 96 mg/dL (65-110); HDL Direct 39 mg/dL; Potassium 3.7 mmol/L (3.4-5.0); Sodium 136 mmol/L (137-145); Triglycerides 114 mg/dL (<150)
[2022-12-24 07:21] LABS: LDL Cholesterol Direct 79 mg/dL
[2022-12-24] MEDS: PANTOPRAZOLE 40 MG TABLET PO (08:04)
[2022-12-24] MEDS: SPIRONOLACTONE 12.5 MG TABLET PO (08:04)
[2022-12-24] MEDS: rOPINIRole HCL 0.5 MG TABLET PO (08:04)
[2022-12-24] MEDS: AZITHROMYCIN 500 MG/NS 250 ML 500 MG/250 ML BAG 250 MG IVPB (08:04)
[2022-12-24] MEDS: LIPASE/AMYLASE/PROTEASE 12,000 UNITS CAP 2 CAP PO ×3 (08:04→16:12)
[2022-12-24] MEDS: FUROSEMIDE INJ 40 MG/4 ML VIAL IV PUSH (08:05)
[2022-12-24] MEDS: PARoxetine 20 MG TABLET PO (08:05)
[2022-12-24] MEDS: bisoproloL fumarate 5 MG TABLET PO (08:05)
[2022-12-24] MEDS: EMPAGLIFLOZIN 10 MG TABLET PO (08:05)
[2022-12-24] MEDS: ROSUVASTATIN 20 MG TABLET 40 MG PO (08:05)
[2022-12-24] MEDS: SACUBITRIL/VALSARTAN 24-26 MG TABLET 1 TAB PO (08:05)
[2022-12-24] MEDS: HEPARIN SODIUM 5,000 UNITS/ML VIAL 5000 UNITS SUB-Q ×2 (08:07→20:10)
--- NOTE | 2022-12-24 08:11 | PM.PNCARD ---
Progress Note: A&P Assessment and Plan (1) Acute combined systolic and diastolic congestive heart failure: Code(s): I50.41 - Acute combined systolic (congestive) and diastolic (congestive) heart failure Status: Acute Assessment and Plan: New onset CHF and cardiomyopathy. Etiology uncertain, may be idiopathic, or 2nd LBBB, r/o CAD or a primary valvular CM (doubt). --Continue IV furosemide 40 mg daily --Daily BMP --Cont bisoprolol, which is one of the BBs effective in tx CHF, titrate to 10 mg daily as OPT --Continue GDMT with Entresto, spironolactone, and jardiance. BP tolerating thus far. --Eventual ischemia eval, preferable with a heart cath (Lexiscan is an alternative) as she has multiple risk factors for CAD and (atypical) CP. Still has some orthopnea, so cath will probably be done as outpatient. --Discussed LifeVest for prevention of SCD. She would like to proceed with this. Order placed. --Possible BiV pacer +/- ICD if EF remains low after 90 days tx (2) Cardiomyopathy: Code(s): I42.9 - Cardiomyopathy, unspecified Status: Acute Assessment and Plan: New, EF 20-25%. --Eval and Tx as above (3) LBBB (left bundle branch block): Code(s): I44.7 - Left bundle-branch block, unspecified Status: Acute Assessment and Plan: New since 2019. May eventually benefit fr a BiV pacer. (4) Mitral regurgitation: Code(s): I34.0 - Nonrheumatic mitral (valve) insufficiency Status: Acute Assessment and Plan: Moderate to moderately severe, prob a result of the CM not the cause. Hope to see it improve w/ CHF tx. (5) Hypertension: Qualifiers: Hypertension type: essential hypertension Qualified Code(s): I10 - Essential (primary) hypertension Code(s): I10 - Essential (primary) hypertension Status: Acute Assessment and Plan: BP mildly elevated on admission, now at goal. (6) Hyperlipidemia: Qualifiers: Hyperlipidemia type: mixed hyperlipidemia Qualified Code(s): E78.2 - Mixed hyperlipidemia Code(s): E78.5 - Hyperlipidemia, unspecified Status: Acute Assessment and Plan: Total chol 222 with LDL of 143 in May 2022. Not on statin? --Taking rosuvastatin 40 mg (7) Hypokalemia: Code(s): E87.6 - Hypokalemia Status: Acute Assessment and Plan: Supplemented. --Daily BMP (8) Anemia: Code(s): D64.9 - Anemia, unspecified Status: Acute Assessment and Plan: Follow H&H; no overt bleeding. (9) Tobacco use: Code(s): Z72.0 - Tobacco use Status: Acute Assessment and Plan: Tobacco cessation encouraged. Subjective Date/time seen: 12/24/22 08:11 Interval history: Cardiology follow up for CMY, CHF Feeling about the same today, still with shortness of breath but was able to sleep flat last night without problems. States she is urinating frequently, but still has positive fluid balance. Denies chest pain, palpitations. Does have TRIANA. Review of Systems Constitutional: Constitutional: Denies fever(s) Eyes: Eyes: Reports no additional eye complaints ENT: Denies epistaxis Cardiovascular: Cardiovascular: Denies chest pain, Denies pedal edema, Denies leg edema, Denies lightheadedness, Denies palpitations and Reports dyspnea Respiratory: Respiratory: Denies chest congestion and Reports dyspnea Gastrointestinal: Gastrointestinal: Reports abdominal pain and Denies hematochezia Genitourinary: Genitourinary: Denies hematuria Musculoskeletal: Musculoskeletal: Reports arthralgias (knee) Integumentary/Breasts: Skin/Breast: Reports system reviewed and no additional complaints, except as docu Neurologic: Reports system reviewed and no additional complaints, except as documented, Denies behavioral changes and Denies confusion Psychiatric: Psychiatric: Denies behavioral changes and Denies confusion Endocrine: Endocrine: Denies pal
[2022-12-24 08:13] LABS: Hypochromasia 1+ (NORMAL); Platelet Estimate Adequate (Adequate); Schistocytes None Seen (NORMAL)
--- NOTE | 2022-12-24 09:31 | PM.IMPN ---
Progress Note: A&P Assessment and Plan (1) Pneumonia: Code(s): J18.9 - Pneumonia, unspecified organism Status: Acute Assessment and Plan: Rocephin and azithromycin started 12/21 Home O2 eval ordered and pending (2) CHF (congestive heart failure): Code(s): I50.9 - Heart failure, unspecified Status: Acute Assessment and Plan: Echo from 12/22 showed an EF of 20-25% with grade 2 diastolic dysfunction Appreciate cardiology consultation, currently working towards GDMT and possible LifeVest at discharge (3) Chronic diarrhea: Code(s): K52.9 - Noninfective gastroenteritis and colitis, unspecified Status: Acute Assessment and Plan: Continue Bentyl for IBS (4) History of tobacco abuse: Onset Date: 2010 Code(s): Z87.891 - Personal history of nicotine dependence Status: Acute Assessment and Plan: Continue nicotine patch, smoking cessation recommended (5) Sphincter of Oddi dysfunction: Code(s): K83.4 - Spasm of sphincter of Oddi Status: Acute Assessment and Plan: Continue pancrease enzymes (6) Hyperlipidemia: Qualifiers: Hyperlipidemia type: mixed hyperlipidemia Qualified Code(s): E78.2 - Mixed hyperlipidemia Code(s): E78.5 - Hyperlipidemia, unspecified Status: Acute Assessment and Plan: Continue with rosuvastatin (7) Hypertension: Qualifiers: Hypertension type: essential hypertension Qualified Code(s): I10 - Essential (primary) hypertension Code(s): I10 - Essential (primary) hypertension Status: Acute Assessment and Plan: Continue with home medications. (8) Anxiety: Code(s): F41.9 - Anxiety disorder, unspecified Status: Acute Assessment and Plan: Continue with lorazepam and paroxetine (9) Idiopathic pancreatitis: Code(s): K85.00 - Idiopathic acute pancreatitis without necrosis or infection Status: Acute Assessment and Plan: Continue pancrease Plan DVT prophylaxis with SCDs GI prophylaxis with PPI Code status full code Subjective Date/time seen: 12/24/22 09:31 Interval history: 77-year-old female with history of tobacco dependence and COPD is presenting with shortness of breath after being diagnosed with pneumonia at an urgent care facility and starting antibiotics yesterday. No overnight events noted. No chest pain or shortness of breath. No nausea, vomiting or diarrhea. No fevers or chills. Feels a little better than yesterday. Lots of questions regarding heart failure management. Review of Systems Review of Systems: 12 point review of systems was assessed and was negative except as noted in the HPI Exam Narrative: General: No acute distress, alert and oriented per baseline HEENT: Atraumatic, normocephalic, mucous membranes moist CV: Regular rate and rhythm, S1, S2 Lungs: Improved air entry, faint crackles at left base Abdomen: Soft, nontender, nondistended Extremities: Normal to inspection Skin: No rashes noted, no lesions or wounds seen Psych: Euthymic, normal affect Objective Data Vital Signs Vital Signs: Vital Signs - 24 hr 12/23/22 14:03 12/23/22 14:15 12/23/22 14:00 Temperature 98.9 F Pulse Rate 91 90 98 Respiratory Rate 16 16 16 Blood Pressure 105/54 L Pulse Oximetry 96 Oxygen Delivery Oxygen Flow Rate 12/23/22 12:00 12/23/22 16:00 12/23/22 19:58 Temperature Pulse Rate 92 88 75 Respiratory Rate 16 Blood Pressure Pulse Oximetry Oxygen Delivery Oxygen Flow Rate 12/23/22 20:44 12/23/22 20:00 12/23/22 20:12 Temperature 97.4 F L Pulse Rate 83 93 78 Respiratory Rate 16 16 Blood Pressure 117/62 Pulse Oximetry 97 Oxygen Delivery Oxygen Flow Rate 12/23/22 19:55 12/24/22 02:15 12/24/22 00:00 Temperature Pulse Rate 74 73 Respiratory Rate 16 Blood Pressure P
[2022-12-24] MEDS: GABAPENTIN 300 MG CAPSULE PO (20:06)
[2022-12-24] MEDS: LORazepam (*CRX) 1 MG TABLET PO (20:08)
[2022-12-25] VITALS (19 sets, daily range): BP systolic 103–125; BP diastolic 55–63; PULSE 67–96; RESP 16–20; TEMP 35.8–36.3; O2SAT 93–98
[2022-12-25] MEDS: IPRATROPIUM BR 0.02% INH SOLN 0.5 MG/2.5 ML VIAL INHALATION ×4 (02:15→20:30)
[2022-12-25] MEDS: ALBUTEROL SULFATE NEB 2.5 MG/3 ML INH INHALATION ×4 (02:15→20:30)
[2022-12-25 08:01] LABS: Glucose Point of Care 109 mg/dl (65-105)
[2022-12-25] MEDS: HEPARIN SODIUM 5,000 UNITS/ML VIAL 5000 UNITS SUB-Q ×2 (08:32→21:29)
[2022-12-25] MEDS: SACUBITRIL/VALSARTAN 24-26 MG TABLET 1 TAB PO ×2 (08:32→21:29)
[2022-12-25] MEDS: LIPASE/AMYLASE/PROTEASE 12,000 UNITS CAP 2 CAP PO ×3 (08:32→17:08)
[2022-12-25] MEDS: PARoxetine 20 MG TABLET PO (08:33)
[2022-12-25] MEDS: EMPAGLIFLOZIN 10 MG TABLET PO (08:33)
[2022-12-25] MEDS: AMOXICILLIN/CLAVULANATE K 875-125 MG TAB 1 TABLET PO ×2 (08:33→17:08)
[2022-12-25] MEDS: ROSUVASTATIN 20 MG TABLET 40 MG PO (08:33)
[2022-12-25] MEDS: bisoproloL fumarate 5 MG TABLET PO (08:33)
[2022-12-25] MEDS: FUROSEMIDE INJ 40 MG/4 ML VIAL IV PUSH (08:33)
[2022-12-25] MEDS: AZITHROMYCIN 250 MG TABLET 500 MG PO (08:34)
[2022-12-25] MEDS: SPIRONOLACTONE 12.5 MG TABLET PO (08:34)
[2022-12-25] MEDS: rOPINIRole HCL 0.5 MG TABLET PO (08:34)
[2022-12-25] MEDS: PANTOPRAZOLE 40 MG TABLET PO (08:34)
[2022-12-25 08:41] LABS: Basophils Absolute Auto 0.1 K/mm3 (0.0-0.1); Basophils Percent Auto 1.8 % (0.2-1.2); Eosinophils Absolute Auto 0.4 K/mm3 (0-0.3); Eosinophils Percent Auto 6.1 % (0-4.4); Hematocrit 27.5 % (37.0-47.0); Hemoglobin 8.5 g/dL (12.0-15.0); Immature Granulocyte Absolute 0.03 K/mm3 (0.00-0.031); Immature Granulocyte Percent A 0.5 % (0-0.5); Lymphocytes Absolute Auto 1.16 K/mm3 (0.9-3.2); Mean Corpuscular HGB Conc 30.9 g/dl (32-36); Mean Corpuscular Hemoglobin 26.9 pg (26-34); Mean Platelet Volume 11.3 fl (7.4-10.4); Monocytes Absolute Auto 0.5 K/mm3 (0.1-0.6); Monocytes Percent Auto 8.8 % (2.6-8.5); Neutrophils Absolute Auto 3.9 K/mm3 (1.3-6.7); Neutrophils Percent Auto 63.8 % (45.5-73.1); Platelet Count Result 329 k/mm3 (150-375); Red Blood Count 3.16 M/mm3 (4.2-5.4); Red Cell Distribution Width 15.6 % (11.5-14.5); White Blood Count 6.1 K/mm3 (4.5-10.0)
[2022-12-25 08:48] LABS: Alanine Aminotransferase 16 U/L (6-35); Albumin Level 3.5 g/dL (3.5-5.1); Alkaline Phosphatase 69 U/L (38-126); Anion Gap 7 mmol/L (8-16); Aspartate Amino Transferase 21 U/L (14-36); Bilirubin,Total 0.2 mg/dL (0.2-1.3); Blood Urea Nitrogen 30 mg/dL (7-17); Calcium 8.8 mg/dL (8.4-10.2); Carbon Dioxide 26 mmol/L (22-30); Chloride 103 mmol/L (98-107); Estimated CRCL calculation 28 ml/min; Estimated Glomerular Filt Rate 43; Glucose 103 mg/dL (65-110); Sodium 136 mmol/L (137-145)
--- NOTE | 2022-12-25 11:10 | PM.IMPN ---
Progress Note: A&P Assessment and Plan (1) Pneumonia: Code(s): J18.9 - Pneumonia, unspecified organism Status: Acute (2) CHF (congestive heart failure): Code(s): I50.9 - Heart failure, unspecified Status: Acute (3) Chronic diarrhea: Code(s): K52.9 - Noninfective gastroenteritis and colitis, unspecified Status: Acute (4) History of tobacco abuse: Onset Date: 2010 Code(s): Z87.891 - Personal history of nicotine dependence Status: Acute (5) Sphincter of Oddi dysfunction: Code(s): K83.4 - Spasm of sphincter of Oddi Status: Acute (6) Hyperlipidemia: Qualifiers: Hyperlipidemia type: mixed hyperlipidemia Qualified Code(s): E78.2 - Mixed hyperlipidemia Code(s): E78.5 - Hyperlipidemia, unspecified Status: Acute (7) Hypertension: Qualifiers: Hypertension type: essential hypertension Qualified Code(s): I10 - Essential (primary) hypertension Code(s): I10 - Essential (primary) hypertension Status: Acute (8) Anxiety: Code(s): F41.9 - Anxiety disorder, unspecified Status: Acute (9) Idiopathic pancreatitis: Code(s): K85.00 - Idiopathic acute pancreatitis without necrosis or infection Status: Acute Plan 77-year-old female with history of tobacco dependence and COPD is presenting with shortness of breath after being diagnosed with pneumonia at an urgent care facility and starting antibiotics. 1)Acute Resp Failure: ?2/2 PNA+ New Diagnosis of HF(Systolic, ?acute) c/w O2 support, will need Home O2 eval prior to discharge S/p Azithromycin+Ceftriaxone Now on Augmentin Appreciate Cardiology help Await life vest Improved with Lasix Started on Jardiance, Entresto c/w BB, Aldactone Outpatient Follow up with cardiology for likely ischemic work up and ?possible pacemaker 2)Elevated troponin: 2/2 above 3)DVT ppx: Hep SQ 4)Code:Full 5)Dispo:anticipate discharge in 1-2 days Time Spent With Patient Time with patient: 25 - 35 minutes Subjective Date/time seen: 12/25/22 11:10 Interval history: Feeling much better today, is being monitored off O2 for now Denies chest pain, sitting in chair Review of Systems Review of Systems: 12 point review of systems was assessed and was negative except as noted in the HPI Exam Narrative: General: No acute distress, alert and oriented per baseline HEENT: Atraumatic, normocephalic, mucous membranes moist CV: Regular rate and rhythm, S1, S2 Lungs: Improved air entry, faint crackles at left base Abdomen: Soft, nontender, nondistended Extremities: Normal to inspection Skin: No rashes noted, no lesions or wounds seen Psych: Euthymic, normal affect Objective Data Vital Signs Vital Signs: Vital Signs - 24 hr 12/24/22 14:18 12/24/22 14:21 12/24/22 14:00 Temperature 98.4 F Pulse Rate 93 77 96 Respiratory Rate 20 20 22 H Blood Pressure 110/54 L Pulse Oximetry 95 Oxygen Delivery Oxygen Flow Rate 12/24/22 12:00 12/24/22 16:00 12/24/22 20:10 Temperature Pulse Rate 80 80 80 Respiratory Rate 20 Blood Pressure Pulse Oximetry Oxygen Delivery Oxygen Flow Rate 12/24/22 20:40 12/24/22 20:01 12/24/22 20:00 Temperature 98.8 F Pulse Rate 75 102 H Respiratory Rate 18 Blood Pressure 98/65 L Pulse Oximetry 93 95 Oxygen Delivery Nasal Cannula Oxygen Flow Rate 2 12/25/22 00:00 12/25/22 02:16 12/24/22 20:30 Temperature Pulse Rate 81 79 82 Respiratory Rate 20 20 Blood Pressure Pulse Oximetry Oxygen Delivery Oxygen Flow Rate 12/25/22 02:30 12/25/22 04:00 12/25/22 05:56 Temperature 97.2 F L Pulse Rate 83 79 78 Respiratory Rate 20 16 Blood Pressure 107/55 L Pulse Oximetry 96 Oxygen Delivery Oxygen Flow Rate 12/25/22 08:28 12/25/22 08:42 12/25/22 08:44 Temperature Pulse Rate 96 90 Respiratory Rate 18 Blood Pressure 125/6
--- NOTE | 2022-12-25 13:45 | PM.PNCARD ---
Progress Note: A&P Assessment and Plan (1) Acute combined systolic and diastolic congestive heart failure: Code(s): I50.41 - Acute combined systolic (congestive) and diastolic (congestive) heart failure Status: Acute Assessment and Plan: New onset CHF and cardiomyopathy. Etiology uncertain, may be idiopathic, or 2nd LBBB, r/o CAD or a primary valvular CM (doubt). --Shift to p.o. furosemide today --Daily BMP --Cont bisoprolol, which is one of the BBs effective in tx CHF, titrate to 10 mg daily as OPT --Continue GDMT with Entresto, spironolactone, and jardiance. BP tolerating thus far. --Eventual ischemia eval with [facility] --Discussed LifeVest for prevention of SCD. She would like to proceed with this. Order placed. --Possible BiV pacer +/- ICD if EF remains low after 90 days tx --Home over weekend? (2) Cardiomyopathy: Code(s): I42.9 - Cardiomyopathy, unspecified Status: Acute Assessment and Plan: New, EF 20-25%. --Eval and Tx as above (3) LBBB (left bundle branch block): Code(s): I44.7 - Left bundle-branch block, unspecified Status: Acute Assessment and Plan: New since 2019. May eventually benefit fr a BiV pacer. (4) Mitral regurgitation: Code(s): I34.0 - Nonrheumatic mitral (valve) insufficiency Status: Acute Assessment and Plan: Moderate to moderately severe, prob a result of the CM not the cause. Hope to see it improve w/ CHF tx. (5) Hypertension: Qualifiers: Hypertension type: essential hypertension Qualified Code(s): I10 - Essential (primary) hypertension Code(s): I10 - Essential (primary) hypertension Status: Acute Assessment and Plan: BP mildly elevated on admission, now at goal. (6) Hyperlipidemia: Qualifiers: Hyperlipidemia type: mixed hyperlipidemia Qualified Code(s): E78.2 - Mixed hyperlipidemia Code(s): E78.5 - Hyperlipidemia, unspecified Status: Acute Assessment and Plan: Total chol 222 with LDL of 143 in May 2022. Not on statin? --Taking rosuvastatin 40 mg (7) Hypokalemia: Code(s): E87.6 - Hypokalemia Status: Acute Assessment and Plan: Supplemented. --Daily BMP (8) Anemia: Code(s): D64.9 - Anemia, unspecified Status: Acute Assessment and Plan: Follow H&H; no overt bleeding. (9) Tobacco use: Code(s): Z72.0 - Tobacco use Status: Acute Assessment and Plan: Tobacco cessation encouraged. Subjective Date/time seen: 12/25/22 13:45 Interval history: Cardiology follow up for CHF Feeling better today. Still has some orthopnea and shortness of breath. Down to 1L O2. No chest pain. Review of Systems Constitutional: Constitutional: Denies fever(s) Eyes: Eyes: Reports no additional eye complaints ENT: Denies epistaxis Cardiovascular: Cardiovascular: Denies chest pain, Denies pedal edema, Denies leg edema, Denies lightheadedness, Denies palpitations and Reports dyspnea Respiratory: Respiratory: Denies chest congestion and Reports dyspnea Gastrointestinal: Gastrointestinal: Reports abdominal pain and Denies hematochezia Genitourinary: Genitourinary: Denies hematuria Musculoskeletal: Musculoskeletal: Reports arthralgias (knee) Integumentary/Breasts: Skin/Breast: Reports system reviewed and no additional complaints, except as docu Neurologic: Reports system reviewed and no additional complaints, except as documented, Denies behavioral changes and Denies confusion Psychiatric: Psychiatric: Denies behavioral changes and Denies confusion Endocrine: Endocrine: Denies palpitations Exam Const: General: cooperative, healthy appearing and comfortable; No confusion Orientation/consciousness: oriented to person, patient oriented x3 and No confusion HENMT: Mouth: Yes moist mucous membranes Eyes: General: appearance normal, both eyes and all related structures EOM
[2022-12-25] MEDS: GABAPENTIN 300 MG CAPSULE PO (21:29)
[2022-12-25] MEDS: LORazepam (*CRX) 1 MG TABLET PO (21:29)
[2022-12-26] VITALS (17 sets, daily range): BP systolic 102–110; BP diastolic 51–57; PULSE 72–91; RESP 16–20; TEMP 36.1–36.6; O2SAT 91–95
[2022-12-26] MEDS: IPRATROPIUM BR 0.02% INH SOLN 0.5 MG/2.5 ML VIAL INHALATION ×3 (02:34→15:30)
[2022-12-26] MEDS: ALBUTEROL SULFATE NEB 2.5 MG/3 ML INH INHALATION ×3 (02:35→15:30)
[2022-12-26 06:57] LABS: Basophils Absolute Auto 0.1 K/mm3 (0.0-0.1); Basophils Percent Auto 1.7 % (0.2-1.2); Eosinophils Absolute Auto 0.4 K/mm3 (0-0.3); Eosinophils Percent Auto 6.2 % (0-4.4); Hematocrit 28.5 % (37.0-47.0); Hemoglobin 8.7 g/dL (12.0-15.0); Immature Granulocyte Absolute 0.03 K/mm3 (0.00-0.031); Immature Granulocyte Percent A 0.5 % (0-0.5); Lymphocytes Absolute Auto 1.47 K/mm3 (0.9-3.2); Lymphocytes Percent Auto 24.8 % (18.3-44.2); Mean Corpuscular HGB Conc 30.5 g/dl (32-36); Mean Corpuscular Hemoglobin 26.9 pg (26-34); Mean Corpuscular Volume 88.2 fl (80-100); Mean Platelet Volume 11.2 fl (7.4-10.4); Monocytes Absolute Auto 0.7 K/mm3 (0.1-0.6); Monocytes Percent Auto 12.1 % (2.6-8.5); Neutrophils Absolute Auto 3.2 K/mm3 (1.3-6.7); Neutrophils Percent Auto 54.7 % (45.5-73.1); Platelet Count Result 299 k/mm3 (150-375); Red Blood Count 3.23 M/mm3 (4.2-5.4); Red Cell Distribution Width 15.4 % (11.5-14.5); White Blood Count 5.9 K/mm3 (4.5-10.0)
[2022-12-26 07:12] LABS: Alanine Aminotransferase 13 U/L (6-35); Albumin Level 3.3 g/dL (3.5-5.1); Alkaline Phosphatase 61 U/L (38-126); Anion Gap 2 mmol/L (8-16); Aspartate Amino Transferase 21 U/L (14-36); Bilirubin,Total 0.4 mg/dL (0.2-1.3); Blood Urea Nitrogen 27 mg/dL (7-17); Calcium 9.5 mg/dL (8.4-10.2); Carbon Dioxide 27 mmol/L (22-30); Chloride 101 mmol/L (98-107); Estimated CRCL calculation 28 ml/min; Estimated Glomerular Filt Rate 43; Glucose 97 mg/dL (65-110); Magnesium 2.3 mg/dL (1.6-2.3); Potassium 4.1 mmol/L (3.4-5.0); Sodium 130 mmol/L (137-145)
[2022-12-26] MEDS: ROSUVASTATIN 20 MG TABLET 40 MG PO (09:17)
[2022-12-26] MEDS: SACUBITRIL/VALSARTAN 24-26 MG TABLET 1 TAB PO (09:17)
[2022-12-26] MEDS: PANTOPRAZOLE 40 MG TABLET PO (09:17)
[2022-12-26] MEDS: rOPINIRole HCL 0.5 MG TABLET PO (09:18)
[2022-12-26] MEDS: SPIRONOLACTONE 12.5 MG TABLET PO (09:18)
[2022-12-26] MEDS: PARoxetine 20 MG TABLET PO (09:18)
[2022-12-26] MEDS: LIPASE/AMYLASE/PROTEASE 12,000 UNITS CAP 2 CAP PO (09:18)
[2022-12-26] MEDS: bisoproloL fumarate 5 MG TABLET PO (09:18)
[2022-12-26] MEDS: FUROSEMIDE 40 MG TABLET PO (09:18)
[2022-12-26] MEDS: EMPAGLIFLOZIN 10 MG TABLET PO (09:18)
[2022-12-26] MEDS: AMOXICILLIN/CLAVULANATE K 875-125 MG TAB 1 TABLET PO (09:22)
[2022-12-26] MEDS: HEPARIN SODIUM 5,000 UNITS/ML VIAL 5000 UNITS SUB-Q (09:22)
--- NOTE | 2022-12-26 10:51 | PM.DS ---
DS: Admitting Diagnosis Discharge Date 12/26/2022 Admitting Diagnosis CHF exacerbation Pneumonia DS: Discharge Diagnosis Discharge Diagnosis (1) Mitral regurgitation: Code(s): I34.0 - Nonrheumatic mitral (valve) insufficiency Status: Acute (2) Tobacco use: Code(s): Z72.0 - Tobacco use Status: Acute (3) LBBB (left bundle branch block): Code(s): I44.7 - Left bundle-branch block, unspecified Status: Acute (4) Cardiomyopathy: Code(s): I42.9 - Cardiomyopathy, unspecified Status: Acute (5) Acute combined systolic and diastolic congestive heart failure: Code(s): I50.41 - Acute combined systolic (congestive) and diastolic (congestive) heart failure Status: Acute (6) Pneumonia: Code(s): J18.9 - Pneumonia, unspecified organism Status: Acute DS: Summary Hospital Course Hospital Course: Patient was admitted with shortness of bed. She was found to have community-acquired pneumonia and acute combined systolic and diastolic congestive heart failure. Cardiology was consulted. ? New onset CHF and cardiomyopathy.? Etiology uncertain, may be idiopathic, or 2nd LBBB, r/o CAD or a primary valvular CM (doubt).? Patient was started on IV Lasix and then change to p.o. furosemide. cont bisoprolol, which is one of the BBs effective in tx CHF, titrate to 10 mg daily as OPT. Continue GDMT with Entresto, spironolactone, and jardiance.? BP tolerating thus far.?Eventual ischemia eval with [facility]. Discussed LifeVest for prevention of SCD.? She would like to proceed with this.? Order placed. Possible BiV pacer +/- ICD if EF remains low after 90 days tx Patient also had lBBB (left bundle branch block). New since 2019.? May eventually benefit fr a BiV pacer. For pneumonia she was started on IV Rocephin and azithromycin which has been changed to p.o. Augmentin. Patient counseled on smoking cessation. She is stable clinically and is being discharged home. Will discontinue hydrochlorothiazide since patient is on Lasix now Time Spent with Patient Time attestation: Total time spent providing and/or coordinating discharge services: DS: Data Data Completed and Pending Labs on day of discharge: Labs from last 24 hours 12/26/22 06:31 WBC 5.9 RBC 3.23 L Hgb 8.7 L Hct 28.5 L MCV 88.2 MCH 26.9 MCHC 30.5 L RDW 15.4 H Plt Count 299 MPV 11.2 H Immature Gran % (Auto) 0.5 Neut % (Auto) 54.7 Lymph % (Auto) 24.8 Caroline % (Auto) 12.1 H Eos % (Auto) 6.2 H Baso % (Auto) 1.7 H Lymph # (Auto) 1.47 Caroline # (Auto) 0.7 H Eos # (Auto) 0.4 H Baso # (Auto) 0.1 Abs Immat Gran (auto) 0.03 Absolute Neuts (auto) 3.2 Absolute Nucleated RBC 0.0 Nucleated RBC % 0.0 Sodium 130 L Potassium 4.1 Chloride 101 Carbon Dioxide 27 Anion Gap 2 L BUN 27 H Creatinine 1.20 H Estim Creat Clear Calc 28 Estimated GFR 43 L Glucose 97 Calcium 9.5 Magnesium 2.3 Total Bilirubin 0.4 AST 21 ALT 13 Alkaline Phosphatase 61 Total Protein 6.0 L Albumin 3.3 L Preliminary micro results at discharge 12/21/22 09:43 Blood Culture - Preliminary Blood 12/21/22 09:41 Blood Culture - Preliminary Blood Discharge Plan Discharge Consulting providers: Saray Waldron Discharging Clinician: Talha Gomes Anticipated Discharge Date/Time: 12/26/22 10:47 Patient Disposition: Home, Self-Care Activity: no preference Diet: heart healthy Patient Instructions: Antibiotic Form, How to Stop Smoking (GEN) Stand Alone Forms: General Discharge Information Follow-up/Referrals: Lupe Peters MD [Primary Care Provider] - Saray Waldron MD [Physician] - Discharge Medications: New Entresto 24-26 mg Tablet 1 tablet PO Q12HR Qty: 60 0RF furosemide 40 mg Tablet 40 mg PO BID Qty: 60 0RF spironolactone 25 mg tablet 12.5 mg PO DAILY Qty: 30 0RF bisoprolol fumarate 5 mg Tablet 5 mg PO DAILY Qty: 30 0RF Jardiance 10 mg Ta
--- NOTE | 2022-12-26 12:33 | PM.PNCARD ---
Progress Note: A&P Assessment and Plan (1) Acute combined systolic and diastolic congestive heart failure: Code(s): I50.41 - Acute combined systolic (congestive) and diastolic (congestive) heart failure Status: Acute Assessment and Plan: New onset CHF and cardiomyopathy. Etiology uncertain, may be idiopathic, or 2nd LBBB, r/o CAD or a primary valvular CM (doubt). --Continue GDMT with Entresto, spironolactone, and jardiance. BP tolerating thus far. --reduce furosemide to 40 mg daily. --Eventual ischemia eval with [facility] --reviewed CHF, meds, Life Vest, when to call, follow-up, low-sodium diet, activity etc.. --okay for discharge from my point of view. (2) Cardiomyopathy: Code(s): I42.9 - Cardiomyopathy, unspecified Status: Acute Assessment and Plan: New, EF 20-25%. --Eval and Tx as above (3) LBBB (left bundle branch block): Code(s): I44.7 - Left bundle-branch block, unspecified Status: Acute Assessment and Plan: New since 2019. May eventually benefit fr a BiV pacer. (4) Mitral regurgitation: Code(s): I34.0 - Nonrheumatic mitral (valve) insufficiency Status: Acute Assessment and Plan: Moderate to moderately severe, prob a result of the CM not the cause. Hope to see it improve w/ CHF tx. (5) Hypertension: Qualifiers: Hypertension type: essential hypertension Qualified Code(s): I10 - Essential (primary) hypertension Code(s): I10 - Essential (primary) hypertension Status: Acute Assessment and Plan: BP mildly elevated on admission, now at goal. (6) Hyperlipidemia: Qualifiers: Hyperlipidemia type: mixed hyperlipidemia Qualified Code(s): E78.2 - Mixed hyperlipidemia Code(s): E78.5 - Hyperlipidemia, unspecified Status: Acute Assessment and Plan: Total chol 222 with LDL of 143 in May 2022. Not on statin? --Taking rosuvastatin 40 mg (7) Hypokalemia: Code(s): E87.6 - Hypokalemia Status: Acute Assessment and Plan: Resolved. (8) Anemia: Code(s): D64.9 - Anemia, unspecified Status: Acute Assessment and Plan: H&H stable; no overt bleeding. (9) Tobacco use: Code(s): Z72.0 - Tobacco use Status: Acute Assessment and Plan: Tobacco cessation encouraged. Subjective Date/time seen: 12/26/22 12:33 Interval history: Cardiology follow up for CHF 12/25/2022: feeling better today. Still has some orthopnea and shortness of breath. Down to 1L O2. No chest pain. Furosemide changed to p.o.. Order placed for Life Vest. 12/26/2022: Upset about in the room, no problems with shortness of breath or dizziness. SBP 98-125 mmHg. Off oxygen. Daughters at bedside. LifeVest was fitted. Review of Systems Review of Systems: No shortness of breath, chest pain, dizziness, edema, abdominal discomfort. Exam Narrative: Patient looks good this morning, wearing usual close, and life vest. Const: General: cooperative, healthy appearing and comfortable; No confusion Orientation/consciousness: oriented to person, patient oriented x3 and No confusion HENMT: Mouth: Yes moist mucous membranes Eyes: General: appearance normal, both eyes and all related structures Neck: Neck: supple Resp: Effort & Inspection: normal respiratory effort Auscultation: rales (Few rales in the left lower lobe) Cardio: Rate: regular rate Rhythm: regular rhythm Heart sounds: Murmur heart sound present GI: Inspection: normal to inspection GI Palp: No abdominal tenderness Skin: General skin exam: normal color and no rashes or lesions noted Neuro: General: oriented to person, patient oriented x3 and No confusion Extrem: Right lower extremity: no edema Left lower extremity: no edema Psych: Appearance: grossly normal Mental Status: mental status grossly normal Objective Data Vital Signs Vital Signs: Vital Signs - 2
--- NOTE | 2022-12-26 15:34 | PCRCNOTE ---
Home o2 evaluation complete. Pt. does not qualify for home oxygen. Unable to determine needs at [facility] however testing can be done at home through a home care company if needed.
== END 2022-12-26 15:58 | disposition home or self-care (01) | DRG 193 ==
LOC: ANHED 11:06 → ANH3MEDSUR 12:31
PROVIDERS: Nurse Practitioner; Admitting Provider Student in an Organized Health Care Education/Training Program; Emergency Provider Emergency Medicine; PCP Family Medicine; Visit Provider Hospitalist
DX: J18.9 Pneumonia, unspecified organism (principal); I50.41 Acute combined systolic (congestive) and diastolic (congestive) heart failure; I42.9 Cardiomyopathy, unspecified; I11.0 Hypertensive heart disease with heart failure; K58.0 Irritable bowel syndrome with diarrhea; E78.5 Hyperlipidemia, unspecified; F17.210 Nicotine dependence, cigarettes, uncomplicated; F41.9 Anxiety disorder, unspecified; K83.4 Spasm of sphincter of Oddi; I34.0 Nonrheumatic mitral (valve) insufficiency; E87.6 Hypokalemia; D64.9 Anemia, unspecified; I44.7 Left bundle-branch block, unspecified
CPT/HCPCS: 36415; 71046; 80053; 80061; 82550; 82948; 83605; 83690; 83735; 83880; 84443; 84484; 85025; 85055; 85610; 85730; 86140; 87040; 87070; 87205; 93005; 93306; 94618; 94640; 96374; 99285; A9270; J0456; J0696; J1644; J1940

== ENCOUNTER 2023-02-01 01:44 | Day surgery (SDC) | payer MEDICARE, SELFPAY ==
[2023-01-29 12:00] VITALS: BMI 24.0
[2023-02-01] VITALS (15 sets, daily range): BP systolic 106–152; BP diastolic 53–76; PULSE 73–96; RESP 14–22; TEMP 36.4–37; O2SAT 95–100; BMI 24.0
[2023-02-01 09:25] LABS: Basophils Absolute Auto 0.1 K/mm3 (0.0-0.1); Eosinophils Absolute Auto 0.1 K/mm3 (0-0.3); Eosinophils Percent Auto 3.7 % (0-4.4); Hematocrit 29.5 % (37.0-47.0); Hemoglobin 8.7 g/dL (12.0-15.0); Immature Granulocyte Absolute 0.01 K/mm3 (0.00-0.031); Immature Granulocyte Percent A 0.3 % (0-0.5); Lymphocytes Absolute Auto 1.07 K/mm3 (0.9-3.2); Lymphocytes Percent Auto 30.2 % (18.3-44.2); Mean Corpuscular HGB Conc 29.5 g/dl (32-36); Mean Corpuscular Hemoglobin 25.8 pg (26-34); Mean Corpuscular Volume 87.5 fl (80-100); Mean Platelet Volume 10.5 fl (7.4-10.4); Monocytes Absolute Auto 0.4 K/mm3 (0.1-0.6); Monocytes Percent Auto 9.9 % (2.6-8.5); Neutrophils Absolute Auto 1.9 K/mm3 (1.3-6.7); Neutrophils Percent Auto 53.9 % (45.5-73.1); Platelet Count Result 302 k/mm3 (150-375); Red Blood Count 3.37 M/mm3 (4.2-5.4); Red Cell Distribution Width 15.5 % (11.5-14.5); White Blood Count 3.5 K/mm3 (4.5-10.0)
[2023-02-01 09:33] LABS: Anion Gap 9 mmol/L (8-16); Blood Urea Nitrogen 27 mg/dL (7-17); Calcium 9.3 mg/dL (8.4-10.2); Carbon Dioxide 23 mmol/L (22-30); Chloride 109 mmol/L (98-107); Estimated CRCL calculation 28 ml/min; Estimated Glomerular Filt Rate 43; Glucose 100 mg/dL (65-110); Sodium 141 mmol/L (137-145)
--- NOTE | 2023-02-01 09:40 | WPDMODSED ---
Moderate Sedation Note-Pt Data Patient Data Diagnosis: Recently diagnosed cardiomyopathy Present Complaint: No complaints this morning Procedure to be performed/Plan: Left heart catheterization Allergies Allergy/AdvReac Type Severity Reaction Status Date / Time codeine Allergy Unknown Vomiting Verified 02/01/23 09:16 oxycodone AdvReac Intermediate Hallucinati Verified 02/01/23 09:16 ng hydrocodone AdvReac Hallucinati Verified 02/01/23 09:16 ng Home Medications Medication Instructions Recorded Confirmed Type omeprazole magnesium 20 mg 20 mg PO DAILY 05/09/19 02/01/23 History tablet,delayed release (Prilosec OTC) rosuvastatin 40 mg tablet 40 mg PO DAILY #90 tabs 06/12/22 02/01/23 Rx ropinirole 0.5 mg tablet 0.5 mg PO DAILY 12/21/22 02/01/23 History empagliflozin 10 mg tablet 10 mg PO DAILY #30 tabs 12/26/22 01/29/23 Rx (Jardiance) lorazepam 1 mg tablet 1 mg PO BID PRN anxiety #60 tabs 12/28/22 02/01/23 Rx gabapentin 300 mg capsule 300 mg PO QHS #90 caps 12/31/22 02/01/23 Rx paroxetine HCl 20 mg tablet 20 mg PO DAILY #90 tabs 12/31/22 02/01/23 Rx bfcenz-nzlzlqod-cajmimn 2 cap PO TID 1 month #180 caps 01/06/23 02/01/23 Rx 12,000-38,000-60,000 unit capsule,delayed rel (Creon) sacubitril 24 mg-valsartan 26 mg 0.5 tablet PO Q12HR 01/29/23 02/01/23 History tablet (Entresto) spironolactone 25 mg tablet 25 mg PO DAILY 01/29/23 02/01/23 History Current Medications: Active Medications Sodium Chloride (Normal Saline Iv) 500 mls @ 100 mls/hr IV CONT .Q5H DURGA Sedation/Anesthesia: No previous sedation/anesthesia problems (including family history). ON LICENSE OF [facility] Past Medical History Medical History Anxiety Chronic diarrhea Fatigue Hyperlipidemia Hypertension Idiopathic pancreatitis Irritable bowel syndrome Diarrhea LBBB (left bundle branch block) Mitral regurgitation Snoring Sphincter of Oddi dysfunction Tobacco use Surgical History Surgical History History of bunionectomy History of cataract extraction with lens replacement History of detached retina repair History of foot surgery History of hysterectomy Hx of cholecystectomy Family History Family History Sibling IBS (irritable bowel syndrome) Grandparent Colitis Other Carcinoma of colon Sphincter of Oddi dysfunction Social History Social History Social History: The patient has quit smoking three weeks ago. Patient is . She typically lives home alone but spends several days with her daughter. She has 2 children. She is retired from a [employer] store. Code status full code Smoking packs per day: 1 Smoking cigarettes per day: 20.0 Years smoked: 10 Smoking pack-years: 10.00 Smoking status: Former smoker Tobacco type: cigarettes Second hand tobacco smoke exposure: Yes Smoking end date: 12/17/22 Alcohol intake: never Alcohol use details: Ocassional Substance use: never Substance use type: does not use Lack of Transportation: No Lack of Food: Never True Current Housing: I Have Housing Concerned About Future Housing: No Difficulty Paying Gas/Electric Bills: No Difficulty Paying for Meds: No Currently Unemployed: No Education: High School Diploma/GED Difficulty w/ Childcare or Family Care: No Living arrangements: with family Occupation/Education: retired Gender identity (if verbalized by the patient): Female Spiritual care concerns: No Agree to blood products: Yes Mod Sed Physical Exam Physical Exam Pre Procedural Exam: Normal: Appearance, Nose, Neck, Throat, Airway, Lungs, Heart Rate, Heart Rhythm, Neuro Exam and Extremities and Variation: Heart Size (PMI laterally displaced) Hours since solid foods: 12 Hours since liquid intake: 12 Mallampati Classification: class II
[2023-02-01] MEDS: SODIUM CHLORIDE 0.9% IV 500 ML 100 ML IV CONT (09:55)
--- NOTE | 2023-02-01 10:40 | WPDCARDPROC ---
Cardiac Cath Procedure Note Date of procedure:: 02/01/23 Performing physician:: Robert Salcido MD Indication:: newly diagnosed cardiomyopathy left bundle branch block Brief clinical history:: this is a 77-year-old woman with the recent development of decompensated heart failure. She was found to have low ejection fraction and has been started on guideline directed medical therapy with good response. An angiogram has been recommended and scheduled for today to determine that this is an ischemic process or not. Procedure Procedure performed:: Left ventriculogram coronary angiogram Sedation/Medication given:: fentanyl 25 mg Versed 2 mg Access site:: right femoral artery Estimated blood loss:: 100 cc Procedure note:: patient was brought to the cardiac catheterization lab in the postabsorptive state where the right femoral triangle was prepared and draped in the usual fashion. Anesthesia was provided with 1% lidocaine infiltrated locally. After this the right femoral artery was punctured using the modified Seldinger technique and a 5 [place] vascular sheath was placed. There was significant tortuosity in the iliac artery with a 360 degree loop prior to the guidewire entering the central aorta. I used a 5 [place] angled pigtail catheter to measure central hemodynamics and to inject left ventriculogram in the ARENAS projection. Following this I used a guidewire exchange because of the tortuosity in the iliac to exchange for a FL4 catheter. Because of the significant he tortuosity in the iliac I was unable to torque or maneuver the coronary catheter in any fashion. For this reason I exchange the sheath for a long 45 cm 5 [place] sheath over the guidewire. Following this I performed left coronary angiography using the FL4 catheter and right coronary angiography using the WRP catheter. The long 45 cm sheath inserted into the artery very easily with hydrophilic coating. Despite this there was oozing around the sheath and I held manual compression with my hand during the entire angiogram to prevent a hematoma from developing. Following the angiograms the sheath was removed direct manual compression in the cardiac catheterization lab. There was no palpable hematoma at the conclusion of the case. Procedure was otherwise well tolerated and uncomplicated. Findings:: Hemodynamics: Central aortic pressure is 142 over 68 left ventricle 142/2 end-diastolic pressure 16 there is no gradient on pullback across the aortic valve. Left ventricle: The LV is markedly dilated there is global hypokinesia in all segments the global ejection fraction is 25-30% by visual estimation the left main coronary artery is nicely patent the left anterior descending is a medium caliber artery extending down to the apex. The LAD has mild luminal irregularities but no flow-limiting or angiographically significant disease. The circumflex is a medium caliber vessel giving rise to the marginal branches. The circumflex system also has mild diffuse luminal irregularities but no flow-limiting disease is seen. The right coronary artery is fairly large in caliber and dominant to the posterior circulation the right coronary artery also has very mild diffuse luminal irregularities but no angiographically significant disease is seen. Conclusion:: 1. Right coronary dominant circulation with no angiographically significant coronary artery disease 2. left ventricular enlargement with severe cardiomyopathy and low ejection fraction which appears to be nonischemic process. Robert Salcido MD FACC
[2023-02-01] MEDS: SODIUM CHLORIDE 0.9% IV 1,000 ML 125 ML IV CONT (12:10)
== END 2023-02-01 18:40 | disposition home or self-care (01) ==
PROVIDERS: PCP Family Medicine; Visit Provider Specialist
PROC: 4A023N7 Measurement of Cardiac Sampling and Pressure, Left Heart, Percutaneous Approach (ICD-10-PCS; CPT 93452; principal; 2023-02-01 10:00)
DX: I42.9 Cardiomyopathy, unspecified (principal); I44.7 Left bundle-branch block, unspecified; I10 Essential (primary) hypertension; E78.5 Hyperlipidemia, unspecified; K58.0 Irritable bowel syndrome with diarrhea; F41.9 Anxiety disorder, unspecified; Z79.84 Long term (current) use of oral hypoglycemic drugs; K83.09 Other cholangitis; Z87.891 Personal history of nicotine dependence
CPT/HCPCS: 36415; 80048; 85025; 93458; C1769; C1887; C1894; J1644; J2250; J2371; J2405; J3010; J7030; J7040

== ENCOUNTER 2023-02-02 14:05 | Outpatient (CLI) | payer MEDICARE, SELFPAY ==
[2023-02-02 15:21] LABS: Basophils Absolute Auto 0.1 K/mm3 (0.0-0.1); Basophils Percent Auto 1.6 % (0.2-1.2); Eosinophils Absolute Auto 0.1 K/mm3 (0-0.3); Eosinophils Percent Auto 2.7 % (0-4.4); Hematocrit 26.7 % (37.0-47.0); Hemoglobin 7.9 g/dL (12.0-15.0); Immature Granulocyte Absolute 0.01 K/mm3 (0.00-0.031); Immature Granulocyte Percent A 0.2 % (0-0.5); Immature Reticulocyte Fraction 21.7 % (3.0-15.9); Lymphocytes Absolute Auto 1.84 K/mm3 (0.9-3.2); Lymphocytes Percent Auto 37.6 % (18.3-44.2); Mean Corpuscular HGB Conc 29.6 g/dl (32-36); Mean Corpuscular Hemoglobin 25.9 pg (26-34); Mean Corpuscular Volume 87.5 fl (80-100); Mean Platelet Volume 10.8 fl (7.4-10.4); Monocytes Absolute Auto 0.6 K/mm3 (0.1-0.6); Monocytes Percent Auto 12.1 % (2.6-8.5); Neutrophils Absolute Auto 2.2 K/mm3 (1.3-6.7); Neutrophils Percent Auto 45.8 % (45.5-73.1); Platelet Count Result 295 k/mm3 (150-375); Red Blood Count 3.05 M/mm3 (4.2-5.4); Red Cell Distribution Width 15.8 % (11.5-14.5); Reticulocyte Hemoglobin Conten 25.7 pg (28.2-35.7); Reticulocyte Percent 1.79 % (0.7-4.3); Reticulocytes Absolute 0.05 M/mm3 (0.02-0.1); White Blood Count 4.9 K/mm3 (4.5-10.0)
[2023-02-02 15:26] LABS: Appearance Urine Clear (Clear); Bilirubin Urine Negative (Negative); Blood Urine Negative (Negative); Color Urine Yellow (Yellow); Glucose Urine UA 3+ mg/dL (Negative); Ketones Urine Negative (Negative); Leukocyte Esterase Ur Negative LEU/UL (Negative); Nitrate Urine Negative (Negative); Protein Urine Negative (Negative); Urobilinogen Urine 0.2 mg/dL (<2.0)
[2023-02-02 15:31] LABS: Anion Gap 7 mmol/L (8-16); Blood Urea Nitrogen 22 mg/dL (7-17); Calcium 8.8 mg/dL (8.4-10.2); Carbon Dioxide 23 mmol/L (22-30); Chloride 108 mmol/L (98-107); Estimated Glomerular Filt Rate 43; Glucose 98 mg/dL (65-110); Potassium 3.8 mmol/L (3.4-5.0); Sodium 138 mmol/L (137-145)
[2023-02-02 15:46] LABS: Add Urine Microscopic? NO
[2023-02-02 15:54] LABS: Iron 37 ug/dL (37-170)
[2023-02-02 16:04] LABS: Percent Iron Saturation 10 % (20-50)
[2023-02-02 16:15] LABS: Platelet Estimate Adequate (Adequate); Schistocytes None Seen (NORMAL)
[2023-02-02 16:16] LABS: Anisocytosis 2+ (NORMAL); Hypochromasia 1+ (NORMAL)
[2023-02-02 17:41] LABS: Free T4 Free Thyroxine Reflex 0.94 ng/dL (0.78-2.19)
[2023-02-03 07:31] LABS: Total Triiodothyronine (T3) 1.09 NG/ML (0.97-1.69)
== END 2023-02-02 14:06 | disposition home or self-care (01) ==
PROVIDERS: PCP Family Medicine; Visit Provider Family Medicine
DX: D64.9 Anemia, unspecified (principal); E03.9 Hypothyroidism, unspecified; N18.30 Chronic kidney disease, stage 3 unspecified
CPT/HCPCS: 36415; 80048; 81003; 82607; 82728; 82746; 83540; 83550; 84439; 84443; 84480; 85025; 85046

== ENCOUNTER 2023-02-18 12:11 | Outpatient (CLI) | payer MEDICARE, SELFPAY ==
[2023-02-24 01:23] LABS: Immunoglobulin A 144 mg/dL (70-320); TTG IGA AB <1.0 U/mL (<15.0)
== END 2023-02-18 12:12 | disposition home or self-care (01) ==
LOC: ANHLAB 12:14
PROVIDERS: PCP Family Medicine; Visit Provider Nurse Practitioner Family
DX: K58.9 Irritable bowel syndrome, unspecified (principal)
CPT/HCPCS: 36415; 82784; 86364

== ENCOUNTER 2023-02-23 11:34 | Outpatient (CLI) | payer MEDICARE, SELFPAY ==
[2023-02-23 12:11] LABS: IFOB Positive Control Positive; Immunochemical Fecal Occult Bl Positive (N)
[2023-03-03 22:03] LABS: Pancreatic Elastase, Stool >500 mcg/g
== END 2023-02-23 11:35 | disposition home or self-care (01) ==
LOC: ANHLAB 11:36
PROVIDERS: PCP Family Medicine; Visit Provider Nurse Practitioner Family
DX: K58.9 Irritable bowel syndrome, unspecified (principal)
CPT/HCPCS: 82274; 82653

== ENCOUNTER 2023-03-11 08:19 | Outpatient (CLI) | payer MEDICARE, SELFPAY ==
--- NOTE | ~2023-03-11 | US_ITS ---
Limited Abdominal Sonogram: Real-time sonographic imaging of the right upper quadrant was performed. Clinical History: Right upper quadrant pain Findings: The liver appears normal with no evidence of mass lesion or bile duct dilatation. Main por scot vein demonstrates normal direction of flow. The gallbladder is absent, compatible prior cholecyst ectomy. The common bile duct measures 9 mm. The visualized pancreas, aorta, and IVC are unremarkable . Impression: Status post cholecystectomy. No other significant findings. Reviewed, dictated and finalized at location . Impression: Status post cholecystectomy. No other significant findings.
== END 2023-03-11 08:20 | disposition home or self-care (01) ==
PROVIDERS: PCP Family Medicine; Visit Provider Nurse Practitioner Family
DX: R10.11 Right upper quadrant pain (principal); Z90.49 Acquired absence of other specified parts of digestive tract
CPT/HCPCS: 76705

== ENCOUNTER 2023-03-25 14:07 | Outpatient (CLI) | payer MEDICARE, SELFPAY ==
[2023-03-25 14:32] LABS: Basophils Absolute Auto 0.1 K/mm3 (0.0-0.1); Basophils Percent Auto 1.4 % (0.2-1.2); Eosinophils Absolute Auto 0.3 K/mm3 (0-0.3); Eosinophils Percent Auto 5.1 % (0-4.4); Hemoglobin 8.1 g/dL (12.0-15.0); Immature Granulocyte Absolute 0.01 K/mm3 (0.00-0.031); Immature Granulocyte Percent A 0.2 % (0-0.5); Immature Reticulocyte Fraction 17.6 % (3.0-15.9); Lymphocytes Absolute Auto 1.81 K/mm3 (0.9-3.2); Lymphocytes Percent Auto 37.2 % (18.3-44.2); Mean Corpuscular HGB Conc 28.9 g/dl (32-36); Mean Corpuscular Hemoglobin 23.8 pg (26-34); Mean Corpuscular Volume 82.4 fl (80-100); Monocytes Absolute Auto 0.5 K/mm3 (0.1-0.6); Monocytes Percent Auto 10.1 % (2.6-8.5); Neutrophils Absolute Auto 2.2 K/mm3 (1.3-6.7); Red Cell Distribution Width 16.7 % (11.5-14.5); Reticulocyte Hemoglobin Conten 23.6 pg (28.2-35.7); Reticulocyte Percent 0.94 % (0.7-4.3); Reticulocytes Absolute 0.03 M/mm3 (0.02-0.1); White Blood Count 4.9 K/mm3 (4.5-10.0)
[2023-03-25 14:41] LABS: Immature Platelet Fraction Pct 4.1 % (0.9-11.2); Mean Platelet Volume 9.7 fl (7.4-10.4); Platelet Count Result 271 k/mm3 (150-375)
[2023-03-25 14:46] LABS: Platelet Estimate Adequate (Adequate); Schistocytes None Seen (NORMAL)
[2023-03-25 14:47] LABS: Hypochromasia 1+ (NORMAL)
[2023-03-25 16:57] LABS: Iron 23 ug/dL (37-170)
[2023-03-25 17:08] LABS: Percent Iron Saturation 6 % (20-50)
[2023-03-25 17:33] LABS: Alanine Aminotransferase 10 U/L (6-35); Albumin Level 4.3 g/dL (3.5-5.1); Alkaline Phosphatase 60 U/L (38-126); Anion Gap 8 mmol/L (8-16); Aspartate Amino Transferase 20 U/L (14-36); Bilirubin,Total 0.3 mg/dL (0.2-1.3); Blood Urea Nitrogen 29 mg/dL (7-17); Calcium 9.6 mg/dL (8.4-10.2); Carbon Dioxide 25 mmol/L (22-30); Chloride 105 mmol/L (98-107); Estimated Glomerular Filt Rate 36; Glucose 101 mg/dL (65-110); Lactate Dehydrogenase 194 U/L (120-246); Sodium 138 mmol/L (137-145)
[2023-03-25 18:38] LABS: Folic Acid 9.1 ng/mL (2.76->20)
[2023-03-28 11:40] LABS: Methylmalonic Acid 380 nmol/L (87-318)
[2023-03-30 11:35] LABS: Soluble Transferrin Receptor 3.11 mg/L (0.76-1.76)
== END 2023-03-25 14:08 | disposition home or self-care (01) ==
LOC: ANHLAB 14:10
PROVIDERS: Nurse Practitioner Family; PCP Family Medicine; Visit Provider Internal Medicine Hematology & Oncology
DX: D64.9 Anemia, unspecified (principal)
CPT/HCPCS: 36415; 80053; 82607; 82728; 82746; 83540; 83550; 83615; 83921; 84238; 85025; 85046; 85055

== ENCOUNTER 2023-04-02 07:10 | Inpatient (IN) | payer MEDICARE, SELFPAY ==
[2023-04-02] VITALS (32 sets, daily range): BP systolic 120–170; BP diastolic 59–83; PULSE 74–93; RESP 13–36; TEMP 36.4–37.2; O2SAT 82–100
--- NOTE | ~2023-04-02 | XR_ITS ---
Clinical Indication: Shortness of breath PA and lateral views of the chest: Comparison: 12/21/2022 Findings: There is mild pulmonary edema pattern, with basilar prominence. No definite pleural effusio n.. Cardiomediastinal silhouette is stable. Bones and soft tissues are unremarkable. Impression: Mild bibasilar predominant pulmonary edema. Reviewed, dictated and finalized at location . CAL FIELD REPRESENTATIVE Impression: Mild bibasilar predominant pulmonary edema.
--- NOTE | ~2023-04-02 | CT_ITS ---
CT head without contrast Indication: Status post fall Technique: Serial scans were obtained through the brain without the administration of contrast. Dose reduction technique was used on this scan by utilizing automated exposure control and iterative recon struction technique. The dose-length product (DLP) was 202.77 mGy-cm. Findings: There is no evidence of intracranial hemorrhage, mass lesion, or acute infarct. Probable ch ronic lacunar infarct noted at the left basal ganglia. The ventricles and subarachnoid spaces are unr emarkable. Minimal low attenuation regions are seen within the periventricular white matter bilateral ly, likely representing changes from chronic microvascular ischemic disease. There is no evidence of edema, mass effect or midline shift. The visualized paranasal sinuses and mastoid air cells are cj ar. Impression: No intracranial hemorrhage, mass, or acute infarct. Probable chronic left basal ganglia lacunar infarct. Minimal chronic white matter changes, as above. Reviewed, dictated and finalized at [facility]. GER HAIR Impression: No intracranial hemorrhage, mass, or acute infarct. Probable chronic left basal ganglia lacunar infarct. Minimal chronic white matter changes, as above.
--- NOTE | ~2023-04-02 | CT_ITS ---
Noncontrast CT scan of the cervical spine Technique: Multiple contiguous axial [address] images of the cervical spine were obtained and rec onstructed in 2D sagittal and coronal planes on the acquisition scanner. Dose reduction technique was used on this scan by utilizing automated exposure control, adjustment of the mA and/or kV according to patient size. The dose-length product (DLP) was 202.77 mGy-cm. Clinical History: Pain Findings: No acute fracture seen. There is 2 mm anterolisthesis of C4 over C5. There is advanced dege nerative disc narrowing at C5-C6. There is moderate degenerative disc narrowing at C3-C4 and C6-C7. T here is degenerative change at the articulation of the odontoid process with the anterior arch of C1. There is left neural foraminal narrowing at C3-C4 with mild bilateral facet arthropathy. There is sma ll disc ossify complex at this level. There is bilateral facet arthropathy at C4-C5, without definite canal stenosis or neural foraminal na rrowing. There is minimal disc osteophyte complex at C5-C6 and C6-C7. No prevertebral soft tissue swelling. Lung apices demonstrate interlobular septal thickening, most co mpatible with mild interstitial pulmonary edema. Impression: No fracture. 2 mm anterolisthesis of C4 over C5. Mild degenerative spondylosis, as above. Interstitial pulmonary edema at the lung apices. Reviewed, dictated and finalized at [facility]. [employer] Impression: No fracture. 2 mm anterolisthesis of C4 over C5. Mild degenerative spondylosis, as above. Interstitial pulmonary edema at the lung apices.
--- NOTE | 2023-04-02 07:15 | ECG_ITS ---
Measurements Intervals [place] Rate: 83 P: 33 WI: 162 QRS: -35 QRSD: 154 T: 116 QT: 404 QTc: 477 Interpretive Statements SINUS RHYTHM WITH SINUS ARRHYTHMIA LEFT AXIS DEVIATION LEFT BUNDLE BRANCH BLOCK BASELINE ARTIFACT- I, II, III, AVR, AVL ABNORMAL ECG COMPARED TO ECG 12/21/2022 07:50:16 SINUS RHYTHM NOW PRESENT SINUS ARRHYTHMIA NOW PRESENT Electronically Signed On 04-02-2023 7:33:03 CIGARETTE MAKING MACHINE CATCHER by Melchor Waters D.O.
--- NOTE | 2023-04-02 07:22 | ED.FALL ---
HPI - Fall General Chief Complaint: Shortness of Breath/Dyspnea Stated Complaint: SOB Time Seen by Provider: 04/02/23 07:14 History of Present Illness HPI Narrative: Patient with history of CHF presents after she had an episode of difficulty breathing when she woke up this morning, consequently as she was trying to get up out of bed her leg got tangled in the sheets and she fell, hitting her head on the nightstand. Her shortness of breath has since resolved, she denies any chest pain or difficulty breathing currently, she does not have any headache, focal numbness or weakness or tingling other than her usual neuropathy, she has no pain anywhere else. She was recently taken off water pills by her doctor due to improved EF, and she initially had some bilateral lower extremity swelling but that has since resolved. Related Data Home Medications Medication Instructions Recorded Confirmed omeprazole magnesium 20 mg 20 mg PO DAILY 05/09/19 02/17/23 tablet,delayed release (Prilosec OTC) ropinirole 0.5 mg tablet 0.5 mg PO DAILY 12/21/22 02/17/23 sacubitril 24 mg-valsartan 26 mg 0.5 tablet PO Q12HR 01/29/23 02/17/23 tablet (Entresto) spironolactone 25 mg tablet 25 mg PO DAILY 01/29/23 02/17/23 Allergies Allergy/AdvReac Type Severity Reaction Status Date / Time codeine Allergy Unknown Vomiting Verified 02/17/23 13:06 oxycodone AdvReac Intermediate Hallucinati Verified 02/17/23 13:06 ng hydrocodone AdvReac Hallucinati Verified 02/17/23 13:06 ng Review of Systems Review of Systems: All systems reviewed & are unremarkable except as noted in HPI and below PMFSH Past Medical History Medical History Anxiety Chronic diarrhea Chronic renal insufficiency, stage III (moderate) Fatigue GERD (gastroesophageal reflux disease) Hyperlipidemia Hypertension Idiopathic pancreatitis Irritable bowel syndrome Diarrhea LBBB (left bundle branch block) Mitral regurgitation Snoring Sphincter of Oddi dysfunction Tobacco use Surgical History Surgical History History of bunionectomy History of cataract extraction with lens replacement History of detached retina repair History of foot surgery History of hysterectomy Hx of cholecystectomy Family History Family History (Updated 03/02/23 @ 11:43 by Sabina Baum RN) Sibling IBS (irritable bowel syndrome) Grandparent Colitis Mother Sphincter of Oddi dysfunction Daughter Sphincter of Oddi dysfunction Father HLD (hyperlipidemia) Hypertension Acute myocardial infarction Other Carcinoma of colon Social History Social History Social History: The patient has quit smoking three weeks ago. Patient is . She typically lives home alone but spends several days with her daughter. She has 2 children. She is retired from a [employer] store. Code status full code Smoking packs per day: 1 Smoking cigarettes per day: 20.0 Years smoked: 20 Smoking pack-years: 20.00 Smoking status: Former smoker Tobacco type: cigarettes Second hand tobacco smoke exposure: Yes Smoking end date: 12/20/22 Additional smoking assessment comments: over younger years did not smoke regularly Alcohol intake: never Alcohol use details: Ocassional Substance use: never Substance use type: does not use Lack of Transportation: No Lack of Food: Never True Current Housing: I Have Housing Concerned About Future Housing: No Difficulty Paying Gas/Electric Bills: No Difficulty Paying for Meds: No Currently Unemployed: No Education: High School Diploma/GED Difficulty w/ Childcare or Family Care: No Living arrangements: with family Occupation/Education: retired Gender identity (if verbalized by the patient): Female Spiritual care concerns: No Agree to blood products: Yes Exam Narrative: EXAMINATION OF
--- NOTE | 2023-04-02 08:08 | PC.NURSE ---
Pt returned from imaging and stretcher was nearly lying flat. Pt reports increased SOB, pt's HOB sat up, pt reconnected to monitors, SpO2 dropped to 82% on RA, increased work of breathing, RR 36/min. Placed on 4L NC. Pt's SpO2 came up to 95%, pt reports increasing ease of breathing. Pt positioned comfortably with HOB elevated. aware.
[2023-04-02 08:29] LABS: Basophils Absolute Auto 0.1 K/mm3 (0.0-0.1); Basophils Percent Auto 1.1 % (0.2-1.2); Eosinophils Absolute Auto 0.2 K/mm3 (0-0.3); Eosinophils Percent Auto 2.8 % (0-4.4); Hemoglobin 8.8 g/dL (12.0-15.0); Immature Granulocyte Absolute 0.04 K/mm3 (0.00-0.031); Immature Granulocyte Percent A 0.6 % (0-0.5); Lymphocytes Absolute Auto 1.47 K/mm3 (0.9-3.2); Lymphocytes Percent Auto 20.4 % (18.3-44.2); Mean Corpuscular HGB Conc 28.4 g/dl (32-36); Mean Corpuscular Hemoglobin 23.5 pg (26-34); Mean Corpuscular Volume 82.9 fl (80-100); Mean Platelet Volume 10.2 fl (7.4-10.4); Monocytes Absolute Auto 0.4 K/mm3 (0.1-0.6); Monocytes Percent Auto 6.1 % (2.6-8.5); Platelet Count Result 299 k/mm3 (150-375); Red Blood Count 3.74 M/mm3 (4.2-5.4); White Blood Count 7.2 K/mm3 (4.5-10.0)
[2023-04-02] MEDS: FUROSEMIDE INJ 40 MG/4 ML VIAL IV PUSH (08:38)
[2023-04-02 08:40] LABS: Potassium 4.2 mmol/L (3.4-5.0)
[2023-04-02 08:42] LABS: Alanine Aminotransferase 11 U/L (6-35); Albumin Level 4.3 g/dL (3.5-5.1); Alkaline Phosphatase 70 U/L (38-126); Anion Gap 10 mmol/L (8-16); Aspartate Amino Transferase 28 U/L (14-36); Bilirubin,Total 0.5 mg/dL (0.2-1.3); Blood Urea Nitrogen 24 mg/dL (7-17); Calcium 9.6 mg/dL (8.4-10.2); Carbon Dioxide 24 mmol/L (22-30); Chloride 107 mmol/L (98-107); Estimated Glomerular Filt Rate 48; Glucose 95 mg/dL (65-110); Sodium 141 mmol/L (137-145)
[2023-04-02 08:49] LABS: NT Pro B Type Natriuretic Pept 11900 pg/mL (19.9-100)
[2023-04-02 09:03] LABS: Anisocytosis 1+ (NORMAL); Hypochromasia 1+ (NORMAL); Platelet Estimate Adequate (Adequate); Poikilocytosis 1+ (NORMAL)
[2023-04-02 09:04] LABS: Schistocytes None Seen (NORMAL); Stomatocytes 1+ (NORMAL)
--- NOTE | 2023-04-02 10:22 | PC.NURSE ---
Pt mentioned to RN that the last few days she has been noticing that her stool appears black. Pt does take iron supplements as well. MD made aware and at bedside at this time for hemoccult.
--- NOTE | 2023-04-02 13:09 | ADMGEN ---
This patient, Thuy Chan, was admitted to Virtual Bed 3rd Floor-1. Patient/family oriented to hospital policies and general routines including ID bracelet, bed and alarms, visiting hours, pain management, procedures, bathroom and other care routines, personal items, smoking policy, room service/diet, and visiting hours. Information on how to activate the Rapid Response Team has been discussed. Patient/Family are encouraged to report perceived risks to care and to ask questions if they do not understand what they are told or what they should do. Admission done in the ER.
--- NOTE | 2023-04-02 13:27 | PM.IMHP ---
H&P: HPI History of Present Illness Date/Time: 04/02/23 13:00 Chief Complaint: Shortness of breath. Narrative: This is an 78-year-old female with nonischemic cardiomyopathy, mitral valve regurgitation, hypertension, and hyperlipidemia who presented to the emergency department for evaluation of shortness of breath. The patient provides the following history. She had a very recent appointment with Dr. Waldron at which time she was told that she no longer had to wear her LifeVest as her ejection fraction had improved to 44% per patient report. Over the last 3 days she has developed mild swelling in her feet, a dry cough, and last night she started to feel short of breath while lying flat in bed. At about 03:00 she got out of bed thinking that would help her shortness of breath but unfortunately her foot got tangled up in the sheets and she fell down onto her right side, striking her head on a nearby foot stool. Luckily there was no injury or loss of consciousness. She also denies fever, chills, sweats, sinus congestion, sore throat, sick contacts, chest pain, pleuritic pain, palpitations, sensations of racing heart, nausea, vomiting, and calf pain. She has not had any recent change in medications and she states compliance with her home medications. She was afebrile on arrival to the ED with stable vital signs. Preliminary workup is consistent with mild CHF exacerbation and she is being admitted in this setting for diuresis. Thus far she has received a total of 60 mg IV furosemide with good urine output. She was initially requiring 2 L nasal cannula but she has since been weaned to room air. Review of Systems Review of Systems: Twelve systems were reviewed and are negative except for as per HPI. [facility] Past Medical History Medical History Anxiety Chronic diarrhea Chronic kidney disease, stage 3 Combined systolic and diastolic heart failure Nonischemic Gastroesophageal reflux disease Hyperlipidemia Hypertension Idiopathic pancreatitis Irritable bowel syndrome with diarrhea Left bundle branch block Mitral regurgitation Nonischemic cardiomyopathy Sphincter of Oddi dysfunction Tobacco use Surgical History Surgical History History of bunionectomy History of cardiac catheterization (02/01/23) Right coronary dominant circulation with no angiographically significant coronary artery disease. Left ventricle was enlarged with severe cardiomyopathy and EF of 25 30%. History of cataract extraction with lens replacement History of cholecystectomy History of detached retina repair History of foot surgery History of hysterectomy Family History Family History Sibling IBS (irritable bowel syndrome) Grandparent Colitis Mother Sphincter of Oddi dysfunction Daughter Sphincter of Oddi dysfunction Father HLD (hyperlipidemia) Hypertension Acute myocardial infarction Other Carcinoma of colon Social History Social History (Updated 04/02/23 @ 20:24 by Lala Valentin PA-C) Social History: Surrogate medical decision maker: Lacy Dugan, daughter. Code status: Full code. Smoking packs per day: 1 Smoking cigarettes per day: 20.0 Years smoked: 20 Smoking pack-years: 20.00 Smoking status: Former smoker Tobacco type: cigarettes Second hand tobacco smoke exposure: Yes Smoking end date: 12/20/22 Additional smoking assessment comments: over younger years did not smoke regularly Alcohol intake: never Alcohol use details: Ocassional Substance use: never Substance use type: does not use Lack of Transportation: No Lack of Food: Sometimes True Current Housing: I Have Housing Concerned About Future Housing: No Difficulty Paying Gas/Electric Bills: No Difficulty Paying for Meds: YES Currently Unemployed: No Education: High School Diploma/GED Difficulty w/ Childcare or Family
--- NOTE | 2023-04-02 14:02 | PC.NURSE ---
Patient wishes to be a DNI. Notified patient's nurse Lynda of wishes.
--- NOTE | 2023-04-02 16:14 | ADMGEN ---
This patient, Thuy Chan, was admitted to Medical Room 248-. Patient/family oriented to hospital policies and general routines including ID bracelet, bed and alarms, visiting hours, pain management, procedures, bathroom and other care routines, personal items, smoking policy, room service/diet, and visiting hours. Information on how to activate the Rapid Response Team has been discussed. Patient/Family are encouraged to report perceived risks to care and to ask questions if they do not understand what they are told or what they should do.
[2023-04-02] MEDS: PANTOPRAZOLE 40 MG TABLET PO (17:34)
[2023-04-02] MEDS: FUROSEMIDE INJ 40 MG/4 ML VIAL 20 MG IV PUSH (17:34)
[2023-04-02] MEDS: rOPINIRole HCL 0.5 MG TABLET PO (21:58)
[2023-04-02] MEDS: bisoproloL fumarate 5 MG TABLET PO (21:58)
[2023-04-02] MEDS: PARoxetine 20 MG TABLET PO (21:58)
[2023-04-02] MEDS: LORazepam (*CRX) 1 MG TABLET PO (21:58)
[2023-04-02] MEDS: ACETAMINOPHEN 325 MG TABLET 650 MG PO (21:59)
[2023-04-02] MEDS: SACUBITRIL/VALSARTAN 24-26 MG TABLET 0.5 TAB PO (21:59)
[2023-04-02] MEDS: GABAPENTIN 300 MG CAPSULE PO (21:59)
[2023-04-03] VITALS: PULSE 61
[2023-04-03 04:00] VITALS: PULSE 65
[2023-04-03 04:07] VITALS: BP 129/58; PULSE 70; RESP 16; TEMP 36.4; O2SAT 94
[2023-04-03 05:12] LABS: Hematocrit 26.4 % (37.0-47.0); Hemoglobin 7.5 g/dL (12.0-15.0); Mean Corpuscular HGB Conc 28.4 g/dl (32-36); Mean Corpuscular Hemoglobin 23.6 pg (26-34); Mean Platelet Volume 10.8 fl (7.4-10.4); Platelet Count Result 262 k/mm3 (150-375); Red Blood Count 3.18 M/mm3 (4.2-5.4); Red Cell Distribution Width 19.3 % (11.5-14.5); White Blood Count 3.9 K/mm3 (4.5-10.0)
[2023-04-03 05:26] LABS: Anion Gap 12 mmol/L (8-16); Blood Urea Nitrogen 22 mg/dL (7-17); Calcium 8.8 mg/dL (8.4-10.2); Carbon Dioxide 24 mmol/L (22-30); Chloride 102 mmol/L (98-107); Estimated CRCL calculation 29 ml/min; Estimated Glomerular Filt Rate 48; Glucose 97 mg/dL (65-110); Magnesium 2.1 mg/dL (1.6-2.3); Potassium 3.2 mmol/L (3.4-5.0); Sodium 138 mmol/L (137-145)
[2023-04-03 08:00] VITALS: PULSE 70; PULSE 94; RESP 16; O2SAT 94
[2023-04-03] MEDS: EMPAGLIFLOZIN 10 MG TABLET PO (08:46)
[2023-04-03] MEDS: LIPASE/AMYLASE/PROTEASE 12,000 UNITS CAP 2 CAP PO ×2 (08:46→12:28)
[2023-04-03] MEDS: FUROSEMIDE INJ 40 MG/4 ML VIAL 20 MG IV PUSH (08:47)
[2023-04-03] MEDS: POTASSIUM CHLORIDE 20 MEQ PACKET (FOR LIQUID) 40 MEQ PO (08:48)
[2023-04-03] MEDS: SACUBITRIL/VALSARTAN 24-26 MG TABLET 0.5 TAB PO (08:48)
[2023-04-03] MEDS: ROSUVASTATIN 10 MG TABLET 40 MG PO (08:51)
--- NOTE | 2023-04-03 10:00 | PM.DS ---
DS: Admitting Diagnosis Discharge Date 04/03/2023 Admitting Diagnosis CHF exacerbation DS: Discharge Diagnosis Discharge Diagnosis (1) Acute combined systolic and diastolic congestive heart failure: Code(s): I50.41 - Acute combined systolic (congestive) and diastolic (congestive) heart failure Status: Acute Assessment and Plan: Interval improvement in respiratory status with the resolution of needing supplemental oxygen. Renal function maintains stability with the diuresis w/creatinine of 1.10 and BUN of 22. Pt appears euvolemic today and without any respiratory deficits or compromise. She is stable for discharge to home today. Pt. was unable to tolerate the Spironolactone that she used to be on at home due to dizziness and therefore it was stopped. earlier this month. As she has now had exacerbation of heart failure, she should have a low dose diuretic and will be provided with Lasix low dose 10 mg at discharge with Potassium supplementation of 10 mEq daily. Continue Entresto, Jardiance (2) Hypokalemia due to loss of potassium: Code(s): E87.6 - Hypokalemia Status: Acute Assessment and Plan: Secondary to problem #1 above with acute diuresis. Supplemental Potassium of 40 mEq ordered today for one dose and she will be discharged with supplemental as well. Check outpatient labs in 2-3 days post discharge to ensure electrolyte stability and renal function stability. (3) Anemia: Qualifiers: Anemia type: unspecified type Qualified Code(s): D64.9 - Anemia, unspecified Code(s): D64.9 - Anemia, unspecified Status: Chronic Assessment and Plan: This is chronic for this patient and she should continue to follow with Hematology with whom she is already established for further evaluation and management. Hgb on day of discharge is 7.5 with hematocrit of 26.4. No active signs of bleeding. She does according to the H&P have a positive occult blood from 02/23/23 and has yet to be referred to GI services. Will refer pt to outpatient GI services at discharge as she will need colonoscopy. (4) Chronic kidney disease, stage 3: Code(s): N18.30 - Chronic kidney disease, stage 3 unspecified Status: Chronic Assessment and Plan: Pt's baseline renal function/creatinine is 0.8-1.4. Today after her diuresis, her creatinine is stable at 1.10. Pt. will have outpatient labs ordered to be drawn in the next 2-3 days. (5) Hypertension: Qualifiers: Hypertension type: essential hypertension Qualified Code(s): I10 - Essential (primary) hypertension Code(s): I10 - Essential (primary) hypertension Status: Chronic Assessment and Plan: Stable during her hospitalization with SBP running 120s-150s/50s-60s. Continue home medications of Bisoprolol and follow up with Cardiology and PCP. (6) Hyperlipidemia: Qualifiers: Hyperlipidemia type: mixed hyperlipidemia Qualified Code(s): E78.2 - Mixed hyperlipidemia Code(s): E78.5 - Hyperlipidemia, unspecified Status: Chronic Assessment and Plan: Continue Rosuvastatin 40 mg daily and a heart healthy diet. DS: Summary Hospital Course Reason for hospitalization: Heart failure exacerbation Hospital Course: This very pleasant 78 year old female patient with significant PMH of NICM, MVR, HTN, HLD, CHF w/previous use of life vest for decreased EF that she has been able to discontinue as she was told her EF increased to 44%, although I cannot find this documentation in the EMR, sphincter of jose f dysfunction, and IBS send was and the small do increasing dyspnea comes exertion comes in the ED and actually found in history. With fall she denies any new or symptoms in speaking workup performed in the emergency room was significant for elevated BNP, as well as chest x-ray demonstrating mild pulmonary edema. Patient was admitted to the hospital for diuresis. Patient does not have baselin
[2023-04-03 12:00] VITALS: PULSE 82
[2023-04-03] MEDS: PANTOPRAZOLE 40 MG TABLET PO (12:29)
== END 2023-04-03 12:55 | disposition home or self-care (01) | DRG 291 ==
LOC: ANHED 09:58 → ANH3MEDSUR 11:15 → ANH2MED 15:45
PROVIDERS: Physician Assistant; Admitting Provider Internal Medicine; Emergency Provider Emergency Medicine; PCP Family Medicine; Visit Provider Nurse Practitioner Adult Health
DX: I13.0 Hypertensive heart and chronic kidney disease with heart failure and stage 1 through stage 4 chronic kidney disease, or unspecified chronic kidney disease (principal); I50.43 Acute on chronic combined systolic (congestive) and diastolic (congestive) heart failure; N18.30 Chronic kidney disease, stage 3 unspecified; F41.9 Anxiety disorder, unspecified; I44.7 Left bundle-branch block, unspecified; I34.0 Nonrheumatic mitral (valve) insufficiency; K58.0 Irritable bowel syndrome with diarrhea; I42.8 Other cardiomyopathies; E87.6 Hypokalemia; E78.5 Hyperlipidemia, unspecified; D64.9 Anemia, unspecified; K21.9 Gastro-esophageal reflux disease without esophagitis; Z98.42 Cataract extraction status, left eye; Z98.41 Cataract extraction status, right eye; Z96.1 Presence of intraocular lens; Z90.710 Acquired absence of both cervix and uterus; Z90.49 Acquired absence of other specified parts of digestive tract; Z87.891 Personal history of nicotine dependence
CPT/HCPCS: 36415; 70450; 71046; 72125; 80048; 80053; 83735; 83880; 85025; 85027; 93005; 93798; 96374; 99291; A9270; J1940

== ENCOUNTER 2023-06-21 11:00 | Outpatient (RCR) | payer MEDICARE, SELFPAY | END 2023-07-20 10:00 | disposition home or self-care (01) | LOC: ANHCPREHAB 11:00 | PROVIDERS: PCP Family Medicine; Visit Provider Internal Medicine Cardiovascular Disease | DX: I50.89 Other heart failure (principal); D64.9 Anemia, unspecified | CPT/HCPCS: 36415; 80053; 82607; 82728; 82746; 83540; 83550; 83615; 83921; 84238; 85025; 85046; 85055; 93798 ==

== ENCOUNTER 2023-06-23 01:53 | Day surgery (SDC) | payer MEDICARE, SELFPAY ==
[2023-05-10 09:09] VITALS: BMI 24.0
--- NOTE | 2023-05-31 11:29 | SUR.PREOP ---
Patient called regarding upcoming procedure. Reviewed preop instructions, appointment times, and procedure prep.
[2023-06-02 16:01] VITALS: BMI 24.0
--- NOTE | 2023-06-21 12:38 | SUR.PREOP ---
Patient called regarding upcoming procedure. Pt updated on arrival date and time. All questions answered.
--- NOTE | 2023-06-22 13:58 | PM.HPGS ---
History of Present Illness History of Present Illness Consent: Risks, benefits, and alternatives have been discussed and questions answered. Patient agrees to proceed with procedure. Chief complaint: iron deficiency anemia Narrative: Thuy Chan is a 78 year old female who was seen in the office in January with complaints of chronic diarrhea and anemia.? She stated that she would have lower abdominal cramping pain then watery stools a couple of times a month which she thought may have been related to eating vegetables.? She was started back on Creon which she had taken briefly about 2 years ago and seems to be helping. Her bowel movements now are formed. She has had blood in the stools but not recently.? She Didhave a low hemoglobin of 7.9 and is followed by Hematology.? she received 2 infusions of iron now her hemoglobin is up to 12.5 Review of Systems Review of Systems: All systems reviewed & are unremarkable except as noted in HPI and below PMFSH Past Medical History Medical History Anxiety Chronic diarrhea Chronic kidney disease, stage 3 Combined systolic and diastolic heart failure Nonischemic Gastroesophageal reflux disease Hyperlipidemia Hypertension Idiopathic pancreatitis Irritable bowel syndrome with diarrhea Left bundle branch block Mitral regurgitation Nonischemic cardiomyopathy Sphincter of Oddi dysfunction Tobacco use Surgical History Surgical History History of bunionectomy History of cardiac catheterization (02/01/23) Right coronary dominant circulation with no angiographically significant coronary artery disease. Left ventricle was enlarged with severe cardiomyopathy and EF of 25 30%. History of cataract extraction with lens replacement History of cholecystectomy History of detached retina repair History of foot surgery History of hysterectomy Family History Family History Sibling IBS (irritable bowel syndrome) Grandparent Colitis Mother Sphincter of Oddi dysfunction Daughter Sphincter of Oddi dysfunction Father HLD (hyperlipidemia) Hypertension Acute myocardial infarction Other Carcinoma of colon Social History Social History Social History: Surrogate medical decision maker: Lacy Dugan, daughter. Code status: Full code. Smoking packs per day: 1 Smoking cigarettes per day: 20.0 Years smoked: 12 Smoking pack-years: 12.00 Smoking status: Former smoker Tobacco type: cigarettes Second hand tobacco smoke exposure: Yes Smoking end date: 12/20/22 Additional smoking assessment comments: over younger years did not smoke regularly Alcohol intake: never Alcohol use details: Ocassional Substance use: never Substance use type: does not use Lack of Transportation: No Lack of Food: Sometimes True Current Housing: I Have Housing Concerned About Future Housing: No Difficulty Paying Gas/Electric Bills: No Difficulty Paying for Meds: YES Currently Unemployed: No Education: High School Diploma/GED Difficulty w/ Childcare or Family Care: No Living arrangements: with family Additional living arrangements comments: . Has 2 children. Occupation/Education: retired Spiritual care concerns: No Agree to blood products: Yes Meds Home Medications and Allergies Home Medications Medication Instructions Recorded Confirmed Type omeprazole magnesium 20 mg 20 mg PO DAILY 05/09/19 06/23/23 History tablet,delayed release (Prilosec OTC) empagliflozin 10 mg tablet 10 mg PO DAILY #30 tabs 12/26/22 06/23/23 Rx (Jardiance) sacubitril 24 mg-valsartan 26 mg 0.5 tablet PO Q12HR 01/29/23 06/23/23 History tablet (Entresto) gabapentin 300 mg capsule 300 mg PO QHS #90 caps 04/12/23 06/23/23 Rx ropinirole 0.5 mg tablet 0.5 mg PO HS #90 tabs 04/12/23 06/23/23 Rx spi
[2023-06-23 08:59] VITALS: BP 96/70; PULSE 98; RESP 18; TEMP 36.2; O2SAT 98; BMI 22.0
[2023-06-23] MEDS: LACTATED RINGERS 1,000 ML 150 ML IV CONT (09:03)
--- NOTE | 2023-06-23 09:36 | WPDANESEPPF ---
Anes - Initial Pre Proc Eval Procedure: Operation Date: 06/23/23 10:00 Proposed Procedures p Colonoscopy - Clemente Gates MD Date/Time: 06/23/23 09:36 Surgeon: Clemente Gates MD Pre Op Diagnosis: iron deficiency anemia Patient Data Age: 78 Gender: F Height: 1.63 m Weight: 58.3 kg Last Vital Signs Temp 97.1 F L 06/23/23 08:59 Pulse 98 06/23/23 08:59 Resp 18 06/23/23 08:59 BP 96/70 L 06/23/23 08:59 Pulse Ox 98 06/23/23 08:59 O2 Del Method Room Air 06/23/23 08:59 Allergies Allergy/AdvReac Type Severity Reaction Status Date / Time codeine Allergy Unknown Vomiting Verified 06/23/23 08:58 oxycodone AdvReac Intermediate Hallucinati Verified 06/23/23 08:58 ng hydrocodone AdvReac Hallucinati Verified 06/23/23 08:58 ng Home Medications Medication Instructions Recorded Confirmed Type omeprazole magnesium 20 mg 20 mg PO DAILY 05/09/19 06/23/23 History tablet,delayed release (Prilosec OTC) empagliflozin 10 mg tablet 10 mg PO DAILY #30 tabs 12/26/22 06/23/23 Rx (Jardiance) sacubitril 24 mg-valsartan 26 mg 0.5 tablet PO Q12HR 01/29/23 06/23/23 History tablet (Entresto) gabapentin 300 mg capsule 300 mg PO QHS #90 caps 04/12/23 06/23/23 Rx ropinirole 0.5 mg tablet 0.5 mg PO HS #90 tabs 04/12/23 06/23/23 Rx spironolactone 25 mg tablet 12.5 mg PO DAILY PRN Hypertension 04/13/23 06/23/23 History paroxetine HCl 20 mg tablet 20 mg PO HS #90 tabs 04/14/23 06/23/23 Rx ynbitw-ejacksfw-mmjzgsk 2 cap PO TID 1 month #180 caps 05/04/23 06/23/23 Rx 12,000-38,000-60,000 unit capsule,delayed rel (Creon) rosuvastatin 40 mg tablet 40 mg PO DAILY #90 tabs 06/17/23 06/23/23 Rx lorazepam 1 mg tablet 1 mg PO HS #30 tabs 06/21/23 06/23/23 Rx bisoprolol fumarate 5 mg tablet 2.5 mg PO HS #30 tabs 06/22/23 06/23/23 Rx Patient hx anesthesia problems: none Family hx anesthesia problems: none Results Review: All pre-operative results and documents have been reviewed as part of the pre-operative evaluation. [facility] Past Medical History Medical History Anxiety Chronic diarrhea Chronic kidney disease, stage 3 Combined systolic and diastolic heart failure Nonischemic Gastroesophageal reflux disease Hyperlipidemia Hypertension Idiopathic pancreatitis Irritable bowel syndrome with diarrhea Left bundle branch block Mitral regurgitation Nonischemic cardiomyopathy Sphincter of Oddi dysfunction Tobacco use Surgical History Surgical History History of bunionectomy History of cardiac catheterization (02/01/23) Right coronary dominant circulation with no angiographically significant coronary artery disease. Left ventricle was enlarged with severe cardiomyopathy and EF of 25 30%. History of cataract extraction with lens replacement History of cholecystectomy History of detached retina repair History of foot surgery History of hysterectomy Family History Family History Sibling IBS (irritable bowel syndrome) Grandparent Colitis Mother Sphincter of Oddi dysfunction Daughter Sphincter of Oddi dysfunction Father HLD (hyperlipidemia) Hypertension Acute myocardial infarction Other Carcinoma of colon Social History Social History Social History: Surrogate medical decision maker: Lacy Dugan, daughter. Code status: Full code. Smoking packs per day: 1 Smoking cigarettes per day: 20.0 Years smoked: 12 Smoking pack-years: 12.00 Smoking status: Former smoker Tobacco type: cigarettes Second hand tobacco smoke exposure: Yes Smoking end date: 12/20/22 Additional smoking assessment comments: over younger years did not smoke regularly Alcohol intake: never Alcohol use details: Ocassional Substance use: never Substance use type: does not use Lack of Transportation: No Lack of F
[2023-06-23 10:25] VITALS: BP 123/63; PULSE 91; RESP 22; O2SAT 98
[2023-06-23 10:35] VITALS: BP 109/61; PULSE 85; RESP 25; O2SAT 96
[2023-06-23 10:45] VITALS: BP 131/72; PULSE 78; RESP 23; O2SAT 95
== END 2023-06-23 10:58 | disposition home or self-care (01) ==
PROVIDERS: PCP Family Medicine; Visit Provider Internal Medicine Gastroenterology
PROC: 0DJD8ZZ Inspection of Lower Intestinal Tract, Via Natural or Artificial Opening Endoscopic (ICD-10-PCS; CPT 45378; principal; 2023-06-23 10:00)
DX: C18.2 Malignant neoplasm of ascending colon (principal); D12.4 Benign neoplasm of descending colon; D50.9 Iron deficiency anemia, unspecified; K57.30 Diverticulosis of large intestine without perforation or abscess without bleeding; K64.8 Other hemorrhoids; I13.0 Hypertensive heart and chronic kidney disease with heart failure and stage 1 through stage 4 chronic kidney disease, or unspecified chronic kidney disease; I50.40 Unspecified combined systolic (congestive) and diastolic (congestive) heart failure; M18.30 Unilateral post-traumatic osteoarthritis of first carpometacarpal joint, unspecified hand; E78.5 Hyperlipidemia, unspecified; I42.8 Other cardiomyopathies; K58.0 Irritable bowel syndrome with diarrhea; F41.9 Anxiety disorder, unspecified; K21.9 Gastro-esophageal reflux disease without esophagitis; Z87.891 Personal history of nicotine dependence
CPT/HCPCS: 45380; 45381; 88305; J2704; J7120

== ENCOUNTER 2023-07-05 09:56 | Outpatient (CLI) | payer MEDICARE, SELFPAY ==
--- NOTE | ~2023-07-05 | CT_ITS ---
CT of the Abdomen and Pelvis: Indication: Anemia Technique: 2.5 mm axial scans were obtained through the abdomen and pelvis following intravenous adm inistration of 100 cc of Omnipaque 350. Dose reduction technique was used on this scan by utilizing a utomated exposure control and iterative reconstruction technique. The dose-length product (DLP) was 3 67.50 mGy-cm. Findings: Scans through the lung bases are unremarkable. Pneumobilia noted. The liver, spleen, pancreas, adrenals and kidneys are otherwise within normal limi ts. Cholecystectomy clips are present. There are atherosclerotic calcifications of the aorta. There i s focal mild dilatation of the infrarenal abdominal aorta maximum 2.9 cm. No lymphadenopathy. Possible 3.5 cm segment of circumferential wall thickening of ascending colon (axial image 84 for exa mple). No bowel obstruction evident. Images through the pelvis were performed. Questionable mild urinary bladder wall thickening. No pelvi c mass seen. No ascites. Impression: 3.5 cm segment of ascending colon with suspected wall thickening. This could reflect peristalsis vers us possibly colonic adenocarcinoma. Correlate clinically. Consider colonoscopy as indicated. Reviewed, dictated and finalized at location . [facility] Impression: 3.5 cm segment of ascending colon with suspected wall thickening. This could re flect peristalsis versus possibly colonic adenocarcinoma. Correlate clinically. Consider colonoscopy as indicated.
== END 2023-07-05 09:57 | disposition home or self-care (01) ==
PROVIDERS: PCP Family Medicine; Visit Provider Internal Medicine Gastroenterology
DX: C18.9 Malignant neoplasm of colon, unspecified (principal); D64.9 Anemia, unspecified
CPT/HCPCS: 74177; Q9967

== ENCOUNTER 2023-08-11 09:55 | Outpatient (CLI) | payer MEDICARE, SELFPAY ==
[2023-08-11 11:27] LABS: Hematocrit 35.8 % (37.0-47.0); Hemoglobin 11.1 g/dL (12.0-15.0)
[2023-08-11 11:39] LABS: Prothrombin Time 13.4 Seconds (11.1-14.7)
[2023-08-11 11:40] LABS: Partial Thromboplastin Time 34.8 Seconds (22.3-36.8)
[2023-08-11 11:59] LABS: Anion Gap 6 mmol/L (8-16); Blood Urea Nitrogen 24 mg/dL (7-17); Calcium 9.5 mg/dL (8.4-10.2); Carbon Dioxide 26 mmol/L (22-30); Chloride 106 mmol/L (98-107); Estimated Glomerular Filt Rate 43; Glucose 97 mg/dL (65-110); Potassium 4.4 mmol/L (3.4-5.0); Sodium 138 mmol/L (137-145)
[2023-08-13 13:14] LABS: Carcinoembryonic Antigen 7.3 ng/mL (0.0-3.0)
== END 2023-08-11 09:56 | disposition home or self-care (01) ==
LOC: ANHSURGERY 10:01
PROVIDERS: Anesthesiology; PCP Family Medicine; Visit Provider Surgery
DX: C18.2 Malignant neoplasm of ascending colon (principal); N18.32 Chronic kidney disease, stage 3b; Z78.9 Other specified health status
CPT/HCPCS: 36415; 80048; 82378; 85014; 85018; 85610; 85730; 86850; 86900; 86901

== ENCOUNTER 2023-08-17 15:35 | Inpatient (IN) | payer MEDICARE, SELFPAY ==
--- NOTE | 2023-08-11 10:43 | PC.NURSE ---
Report to the Outpatient Waiting Room, entrance under the green pavilion located off [facility], at time __0930 on date _08/17/23 . Planned Procedure Time: _1130 . Time changes happen often and if your time is changed the preop area will call you the afternoon before. - You and your visitor will be asked to self-screen and do not enter if you have any COVID symptoms. - A mask is optional within the hospital at this time. BOWEL PREP PER DR DODSON Patients may have clear liquids (water, carbonated beverages, clear teas, apple juice) until 3 hours prior to surgery(8:30) with a maximum of 20 ounces. - No food from midnight until time of surgery - Infants may have breast milk until 4 hours before surgery, formula 6 hours prior to surgery. - Children will be allowed to drink immediately following surgery. If applicable, please bring a bottle or sippy cup to assist with drinking. Juice, water, soda, and popsicles are readily available. For infants on formula, please bring formula the day of surgery. Pacifiers are allowed. Take the following medications with a SIP of water the morning of surgery: __NONE DO NOT STOP ANY OF YOUR OTHER PRESCRIPTION MEDICATIONS PRIOR TO SURGERY ?EXCEPT THE FOLLOWING Medications to discontinue per physician ___HOLD ALL VITAMINS AND SUPPLEMENTS 3 DAYS PRE OP .LAST DOSE 08/13/23 Please no make-up, nail nauruan, hairspray, perfume, deodorant, or body powder the day of surgery. No jewelry (including any body piercings) or valuables the day of surgery, leave them at home. Please take a shower or bath the night before, or the morning of, surgery with an antibacterial soap. Wear comfortable, loose fitting clothing. Children are encouraged to wear pajamas. - Jewelry must be removed prior to entering the operating room. Rings and piercings that are not removed may be cut off. - The hospital will not accept responsibility for valuables. - Please leave all valuables, including medications, at home the day of surgery. If you are going home after surgery, a licensed local tanker truck driver must drive you home. - NO public transportation without another adult if you receive anesthesia. - We recommend that an adult stay with you for 24 hours following discharge. - We also recommend that you do not drive, make important decision, drink alcoholic beverages, or take any drugs that were not prescribed by your health care provider for at least 24 hours after your discharge time. Follow any additional instructions given to you from your surgeon. If you or anyone in your household have experienced Covid symptoms in the past week, please notify your surgeon or the nurse liaison at the phone number below for possible testing. VERBAL AND WRITTEN instructions given to _PATIENT AND DAUGHTER SEGUN and asked if any additional questions and then verbalized understanding. Patient advised to call surgeon office or pre surgery nurse liaison [phone] if any additional questions.
[2023-08-11 11:11] VITALS: BP 101/61; PULSE 75; RESP 18; TEMP 36.7; O2SAT 97; BMI 24.5
[2023-08-17] VITALS (17 sets, daily range): BP systolic 102–160; BP diastolic 44–67; PULSE 68–98; RESP 12–20; TEMP 36.4–37.1; O2SAT 94–100
--- NOTE | ~2023-08-17 | XR_ITS ---
EXAMINATION: XR chest 1V portable DATE: 08/21/2023 17:05 INDICATION: Shortness of breath. TECHNIQUE: A single frontal view of the chest was obtained. COMPARISON: Chest 2 views 04/02/2023, CT abdomen and pelvis 07/05/2023 FINDINGS: There is no pneumonia, pleural effusion, or pneumothorax. The heart size is normal. Breast implants are noted. IMPRESSION: 1. No acute cardiopulmonary disease. Reviewed, dictated and finalized at location A.
[2023-08-17] MEDS: ACETAMINOPHEN 500 MG TABLET 1000 MG PO ×2 (08:26→18:42)
[2023-08-17] MEDS: LACTATED RINGERS 1,000 ML 30 ML IV CONT ×2 (08:35→13:17)
[2023-08-17] MEDS: KETOROLAC 15 MG/ML VIAL (*BKC) IV PUSH (08:41)
--- NOTE | 2023-08-17 09:03 | PM.IMHP ---
H&P: HPI History of Present Illness Date/Time: 08/17/23 09:03 Chief Complaint: Ascending colon cancer Narrative: This is an 78-year-old woman who presents for right hemicolectomy. She had recent finding ascending colon mass on colonoscopy. Biopsies confirmed adenocarcinoma. She has had a CT which showed evidence of the mass but no other gross findings of metastases. She reports no changes since last seen in the office. Review of Systems Review of Systems: All systems reviewed & are unremarkable except as noted in HPI and below Constitutional: Constitutional: Denies chills, Denies fever(s), Denies headache(s) and Denies weight loss Eyes: Eyes: Denies change in vision ENT: Denies dizziness, Denies headache(s), Denies neck mass and Denies throat swelling Cardiovascular: Cardiovascular: Denies chest pain, Denies lightheadedness and Denies dyspnea Respiratory: Respiratory: Denies cough, Denies dyspnea and Denies wheezing Gastrointestinal: Gastrointestinal: Denies abdominal pain, Denies change in bowel habits, Denies nausea and Denies vomiting Genitourinary: Genitourinary: Denies hematuria and Denies dysuria Musculoskeletal: Musculoskeletal: Reports as per HPI Integumentary/Breasts: Skin/Breast: Reports as per HPI Neurologic: Denies dizziness and Denies headache(s) Allergic/Immunologic: Allergic/Immunologic: Denies throat swelling and Denies wheezing PMFSH Past Medical History Medical History Anxiety Chronic diarrhea Chronic kidney disease, stage 3 Combined systolic and diastolic heart failure Nonischemic Gastroesophageal reflux disease Hyperlipidemia Hypertension Idiopathic pancreatitis Irritable bowel syndrome with diarrhea Left bundle branch block Mitral regurgitation Nonischemic cardiomyopathy Sphincter of Oddi dysfunction Tobacco use Surgical History Surgical History History of bunionectomy History of cardiac catheterization (02/01/23) Right coronary dominant circulation with no angiographically significant coronary artery disease. Left ventricle was enlarged with severe cardiomyopathy and EF of 25 30%. History of cataract extraction with lens replacement History of cholecystectomy History of detached retina repair History of foot surgery History of hysterectomy Family History Family History Sibling IBS (irritable bowel syndrome) Grandparent Colitis Mother Sphincter of Oddi dysfunction Daughter Sphincter of Oddi dysfunction Father HLD (hyperlipidemia) Hypertension Acute myocardial infarction Other Carcinoma of colon Social History Social History Social History: Surrogate medical decision maker: Lacy Dugan, daughter. Code status: Full code. Smoking packs per day: 0.5 Smoking cigarettes per day: 10.0 Years smoked: 12 Smoking pack-years: 6.00 Smoking status: Former smoker Tobacco type: cigarettes Second hand tobacco smoke exposure: Yes Smoking end date: 12/20/22 Additional smoking assessment comments: over younger years did not smoke regularly Alcohol intake: never Alcohol use details: Ocassional Substance use: never Substance use type: does not use Do You Feel Safe in your Home?: Yes Lack of Transportation: No Lack of Food: Sometimes True Current Housing: I Have Housing Concerned About Future Housing: No Difficulty Paying Gas/Electric Bills: No Difficulty Paying for Meds: YES Currently Unemployed: No Education: High School Diploma/GED Difficulty w/ Childcare or Family Care: No Living arrangements: with family Additional living arrangements comments: . Has 2 children. Occupation/Education: retired Gender identity (if verbalized by the patient): Female Sexual Orientation (if Verbalized by the Patient): Straight or Het
--- NOTE | 2023-08-17 09:06 | WPDHPUPDATE1 ---
History and Physical Update Update Date/Time: 08/17/23 09:06 History and Physical has been reviewed, including an updated exam of the patient. There are NO changes in the patient's condition. Risks, benefits, and alternatives have been discussed and questions answered. Patient agrees to proceed with procedure.
--- NOTE | 2023-08-17 09:41 | WPDANESEPPF ---
Anes - Initial Pre Proc Eval Procedure: Operation Date: 08/17/23 09:30 Proposed Procedures p Laparoscopic Right Hemicolectomy Davinci Assisted - Jordon Goldberg DO Date/Time: 08/17/23 09:41 Surgeon: Jordon Goldberg DO Pre Op Diagnosis: ascending colon cancer Patient Data Age: 78 Gender: F Height: 1.57 m Weight: 59.8 kg Last Vital Signs Temp 98.7 F 08/17/23 07:43 Pulse 92 08/17/23 07:43 Resp 20 08/17/23 07:43 BP 108/57 L 08/17/23 07:43 Pulse Ox 98 08/17/23 07:43 O2 Del Method Room Air 08/17/23 07:43 Allergies Allergy/AdvReac Type Severity Reaction Status Date / Time oxycodone AdvReac Intermediate Hallucinati Verified 08/17/23 07:49 ng codeine AdvReac Unknown Vomiting Verified 08/17/23 07:49 hydrocodone AdvReac Hallucinati Verified 08/17/23 07:49 ng Home Medications Medication Instructions Recorded Confirmed Type omeprazole magnesium 20 mg 20 mg PO DAILY 05/09/19 08/17/23 History tablet,delayed release (Prilosec OTC) empagliflozin 10 mg tablet 10 mg PO DAILY #30 tabs 12/26/22 08/17/23 Rx (Jardiance) sacubitril 24 mg-valsartan 26 mg 0.5 tablet PO Q12HR 01/29/23 08/17/23 History tablet (Entresto) spironolactone 25 mg tablet 12.5 mg PO DAILY PRN Hypertension 04/13/23 08/17/23 History paroxetine HCl 20 mg tablet 20 mg PO HS #90 tabs 04/14/23 08/17/23 Rx rosuvastatin 40 mg tablet 40 mg PO DAILY #90 tabs 06/17/23 08/17/23 Rx bisoprolol fumarate 5 mg tablet 2.5 mg PO HS #30 tabs 06/28/23 08/17/23 Rx gabapentin 300 mg capsule 300 mg PO QHS #90 caps 07/08/23 08/17/23 Rx ropinirole 0.5 mg tablet 0.5 mg PO HS #90 tabs 07/12/23 08/17/23 Rx metronidazole 500 mg tablet 500 mg PO .COMPLEX #3 tabs 07/19/23 08/17/23 Rx lorazepam 1 mg tablet 1 mg PO HS #30 tabs 07/26/23 08/17/23 Rx acetaminophen 500 mg capsule 500 mg PO Q6H PRN Pain 08/11/23 08/17/23 History ascorbic acid (vitamin C) 1,000 mg 1 g PO DAILY 08/11/23 08/17/23 History capsule ciprofloxacin HCl 500 mg tablet 500 mg PO ONCE 08/11/23 08/17/23 History cyanocobalamin (vitamin B-12) 1,000 mcg PO DAILY 08/11/23 08/17/23 History 1,000 mcg tablet ferrous sulfate 325 mg (65 mg 325 mg PO DAILY 08/11/23 08/17/23 History iron) tablet miziwp-fjkkikzs-nzumkbs 2 cap PO TID 1 month #180 caps 08/12/23 08/17/23 Rx 12,000-38,000-60,000 unit capsule,delayed rel (Creon) Patient hx anesthesia problems: post op nausea/vomiting Family hx anesthesia problems: none Results Review: All pre-operative results and documents have been reviewed as part of the pre-operative evaluation. [facility] Past Medical History Medical History Anxiety Chronic diarrhea Chronic kidney disease, stage 3 Combined systolic and diastolic heart failure Nonischemic Gastroesophageal reflux disease Hyperlipidemia Hypertension Idiopathic pancreatitis Irritable bowel syndrome with diarrhea Left bundle branch block Mitral regurgitation Nonischemic cardiomyopathy Sphincter of Oddi dysfunction Tobacco use Surgical History Surgical History History of bunionectomy History of cardiac catheterization (02/01/23) Right coronary dominant circulation with no angiographically significant coronary artery disease. Left ventricle was enlarged with severe cardiomyopathy and EF of 25 30%. History of cataract extraction with lens replacement History of cholecystectomy History of detached retina repair History of foot surgery History of hysterectomy Family History Family History Sibling IBS (irritable bowel syndrome) Grandparent Colitis Mother Sphincter of Oddi dysfunction Daughter Sphincter of Oddi dysfunction Father HLD (hyperlipidemia) Hypertension Acute myocardial infarction Other Carcinoma of colon Social History Social History So
[2023-08-17] MEDS: SCOPOLAMINE 1 MG PATCH 1 PATCH TRANSDERM (09:49)
[2023-08-17] MEDS: ceFAZolin 2 GM/D5W 50 ML 2 GM/50 ML BAG IVPB (09:55)
[2023-08-17] MEDS: metroNIDAZOLE 500 MG/ISO 100ML 500 MG/100 ML BAG 100 MG IVPB (10:19)
[2023-08-17] MEDS: BUPIVACAINE/EPINEPHRINE 0.5% 30 ML VIAL INFILTRATE (10:24)
[2023-08-17] MEDS: INDOCYANINE GREEN 25 MG VIAL WITH DILUENT 7.5 MG IV PUSH (11:54)
[2023-08-17] MEDS: BUPIVACAINE/EPINEPHRINE 0.5% 50 ML VIAL 20 ML INFILTRATE (12:43)
--- NOTE | 2023-08-17 13:25 | SUR.OPER ---
EBL 20ML
--- NOTE | 2023-08-17 13:52 | W.PM.PROC2 ---
Procedure Note - Detailed Date of Procedure 08/17/23 Pre-op Diagnosis ascending colon cancer Post-op Diagnosis Same Procedure Performed Laparoscopic right hemicolectomy with ileocolic anastomosis, da Michael assisted Surgeon Jordon Goldberg, DO Anesthesia General and Local (Exparel) Indications This is an 78-year-old woman who presented with a recent finding of ascending colon adenocarcinoma. She was found to have iron deficiency anemia and underwent colonoscopy by Dr. Gates on 06/23/2023. A large mass in the distal ascending colon was identified and biopsied. Biopsies confirmed evidence of adenocarcinoma. She then underwent CT of her abdomen and pelvis which showed evidence of the mass but no other findings concerning for distant metastases. Her preoperative CEA level was 7.3. Discussions were made with the patient about treatment options decision was made to proceed with robotic assisted laparoscopic right hemicolectomy, possible open. Findings Upon inspecting the abdomen laparoscopically, there were some omental adhesions in the left upper quadrant and right upper quadrant. The remainder of the abdominal cavity appeared relatively free of adhesions. I took down some of the adhesions laparoscopically prior to progressing robotically. These were taken down with laparoscopic scissors. I then was able to place the remainder of my ports and proceeded with the robotic portion. I was able to identify the tattooed region in the ascending colon near the hepatic flexure. Performed a high ligation the ileocolic vessels and right branch of the middle colic artery. I then came across the mid transverse colon and distal ileum with the robotic stapler. A ppto-bp-hbdl isoperistaltic anastomosis was then performed. The right colon was removed through the suprapubic mini Pfannenstiel incision with a small Bradford wound protector. No other intra-abdominal abnormalities were noted. Description of Procedure Procedure as well as risks, benefits, and alternatives were discussed with the patient.? Written consent was obtained and placed in chart prior to procedure.? Patient was brought back to surgical suite.? She was placed supine on operating table.? Time-out was done to confirm patient and procedure.? She was then intubated by the anesthesia department.? Her abdomen was prepped and draped in sterile fashion using chlorhexidine prep.? An 8 mm incision was made in the left upper quadrant and a 5 mm Optiview trocar was advanced through the abdominal layers under direct visualization.? Once inside the abdominal cavity, carbon dioxide insufflation was used to create a pneumoperitoneum.? Camera was inserted in the abdomen was inspected.? The patient was placed in 5 degree Trendelenburg. An 8 mm incision was made in the suprapubic region in midline and an 8 mm trocar was inserted under direct visualization another 8 mm incision was made in the umbilical region just inferior into the left of the umbilicus and an 8 mm trocar was inserted under direct visualization.? A 12 mm incision was made in the left lateral abdomen and a 12 mm trocar was inserted under direct visualization.? An 8 mm incision was made in the left lower quadrant and an 8 mm assist port was placed under direct visualization.? The 5 mm port was then removed and exchanged for an 8 mm port.? The robotic arms were then brought up to the patient's bedside and secured to the ports.? The camera and instruments were then inserted.? I then moved over to the robotic console and took control of the camera and instruments.? Thorough inspection was made around the abdominal cavity.? The omentum was then reflected cephalad over the transverse colon.? The area near the ileocecal valve was grasped and retracted anterior and laterally to tent up the ileocolic pedicle.? Scissors with electrocautery were then used to perform the medial to lateral dissection.? I entered into the avascular plane just inferior to the ileocolic pedicle and ca
[2023-08-17] MEDS: fentaNYL CITRATE INJ (*CRX) 100 MCG/2 ML VIAL 25 MCG IV PUSH ×2 (14:12→14:25)
--- NOTE | 2023-08-17 15:50 | ADMGEN ---
This patient, Thuy Chan, was admitted to [facility] Surg Room 328-01. Patient/family oriented to hospital policies and general routines including ID bracelet, bed and alarms, visiting hours, pain management, procedures, bathroom and other care routines, personal items, smoking policy, room service/diet, and visiting hours. Information on how to activate the Rapid Response Team has been discussed. Patient/Family are encouraged to report perceived risks to care and to ask questions if they do not understand what they are told or what they should do.
[2023-08-17] MEDS: ONDANSETRON INJ 4 MG/2 ML VIAL IV PUSH (15:52)
[2023-08-17] MEDS: LACTATED RINGERS 1,000 ML 100 ML IV CONT (16:31)
[2023-08-17] MEDS: SACUBITRIL/VALSARTAN 12-13 MG TABLET 1 TAB PO (21:26)
[2023-08-17] MEDS: PARoxetine 20 MG TABLET PO (21:26)
[2023-08-17] MEDS: LORazepam (*CRX) 1 MG TABLET PO (21:26)
[2023-08-17] MEDS: bisoproloL fumarate 2.5 MG TABLET PO (21:26)
[2023-08-17] MEDS: GABAPENTIN 300 MG CAPSULE PO (21:27)
[2023-08-17] MEDS: traMADol HCL (*CRX) 50 MG TABLET PO (21:27)
[2023-08-17] MEDS: rOPINIRole HCL 0.5 MG TABLET PO (21:27)
[2023-08-17] MEDS: HEPARIN SODIUM 5,000 UNITS/ML VIAL 5000 UNITS SUB-Q (21:28)
[2023-08-18] MEDS: ACETAMINOPHEN 500 MG TABLET 1000 MG PO ×5 (00:32→23:19)
[2023-08-18 01:20] VITALS: BP 138/51; PULSE 64; RESP 14; TEMP 36.6; O2SAT 99
[2023-08-18 05:20] VITALS: BP 149/41; PULSE 63; RESP 14; TEMP 36.3; O2SAT 94
[2023-08-18] MEDS: traMADol HCL (*CRX) 50 MG TABLET PO ×4 (05:47→20:39)
[2023-08-18] MEDS: LACTATED RINGERS 1,000 ML 100 ML IV CONT (05:48)
[2023-08-18 07:31] LABS: Hematocrit 28.3 % (37.0-47.0); Hemoglobin 8.7 g/dL (12.0-15.0); Mean Corpuscular HGB Conc 30.7 g/dl (32-36); Mean Corpuscular Hemoglobin 29.3 pg (26-34); Mean Corpuscular Volume 95.3 fl (80-100); Mean Platelet Volume 10.4 fl (7.4-10.4); Platelet Count Result 194 k/mm3 (150-375); Red Blood Count 2.97 M/mm3 (4.2-5.4); Red Cell Distribution Width 15.6 % (11.5-14.5); White Blood Count 6.4 K/mm3 (4.5-10.0)
[2023-08-18 07:44] LABS: Anion Gap 4 mmol/L (4-12); Blood Urea Nitrogen 18 mg/dL (7-17); Calcium 8.6 mg/dL (8.4-10.2); Carbon Dioxide 25 mmol/L (22-30); Chloride 107 mmol/L (98-107); Estimated CRCL calculation 29 ml/min; Estimated Glomerular Filt Rate 48; Glucose 93 mg/dL (65-110); Potassium 3.9 mmol/L (3.4-5.0); Sodium 136 mmol/L (137-145)
[2023-08-18 07:56] VITALS: BP 114/43; PULSE 66; RESP 16; TEMP 36.8; O2SAT 91
[2023-08-18] MEDS: EMPAGLIFLOZIN 10 MG TABLET PO (08:32)
[2023-08-18] MEDS: HEPARIN SODIUM 5,000 UNITS/ML VIAL 5000 UNITS SUB-Q ×2 (08:33→20:38)
[2023-08-18] MEDS: PANTOPRAZOLE 40 MG TABLET PO (08:33)
[2023-08-18] MEDS: ROSUVASTATIN 10 MG TABLET 40 MG PO (08:33)
[2023-08-18] MEDS: SACUBITRIL/VALSARTAN 12-13 MG TABLET 1 TAB PO ×2 (08:33→20:43)
[2023-08-18] MEDS: LIPASE/AMYLASE/PROTEASE 12,000 UNITS CAP 2 CAP PO ×3 (08:35→17:00)
--- NOTE | 2023-08-18 10:58 | PM.PNGS ---
Progress Note: A&P Assessment and Plan (1) Cancer of ascending colon: Code(s): C18.2 - Malignant neoplasm of ascending colon Status: Acute Assessment and Plan: Advance to full liquids Increase activity as tolerated Repeat labs tomorrow (2) PEBBLES (iron deficiency anemia): Code(s): D50.9 - Iron deficiency anemia, unspecified Status: Acute Assessment and Plan: Hx PEBBLES with preop hgb 11.1 and down to 8.7 on today's labs. She is hemodynamically stable with no signs of active bleeding. Will monitor and repeat labs tomorrow. (3) Stage 3b chronic kidney disease: Code(s): N18.32 - Chronic kidney disease, stage 3b Status: Acute Assessment and Plan: Stable (4) Nonischemic cardiomyopathy: Code(s): I42.8 - Other cardiomyopathies Status: Acute Assessment and Plan: Continue home medications. Decreased IV fluids. Will stop IV fluids if nausea improves and tolerating full liquids. Plan I have discussed the patient's case and plan of care with Dr. Goldberg. Subjective Subjective Date/Time Seen: 08/18/23 09:58 Post Op day: 1 (Laparoscopic right hemicolectomy with ileocolic anastomosis, da Michael assisted) Patient reports: no flatus, no bowel movement and nausea Interval history: Patient s/p lap right hemicolectomy, robotic-assisted yesterday for ascending colon cancer. She reports doing well overnight. After her clear liquid tray this morning, she started having some nausea and bloating. No vomiting. Some incisional soreness, but no significant abdominal pain. Review of Systems Review of Systems: All systems reviewed & are unremarkable except as noted in HPI and below Exam Const: General: comfortable and no acute distress Orientation/consciousness: patient oriented x3 GI: Inspection: non-distended and incision (dry and glue intact) GI Palp: Yes Soft to palpation, Yes Tenderness to palpation present (GI) (incisional) and No Guarding due to palpation present (GI) Auscultation: Hypoactive bowel sounds present Extrem: General: no edema Objective Data Vital Signs Vital Signs: Vital Signs - 24 hr 08/17/23 13:17 08/17/23 13:25 08/17/23 13:35 Temperature 97.5 F L Pulse Rate 98 80 77 Respiratory Rate 18 16 12 Blood Pressure 160/65 H 146/53 H 127/52 L Pulse Oximetry 99 97 96 Oxygen Delivery Simple Face Mask Simple Face Mask Simple Face Mask Oxygen Flow Rate 8 8 8 08/17/23 13:45 08/17/23 14:00 08/17/23 14:15 Temperature Pulse Rate 77 74 73 Respiratory Rate 14 12 12 Blood Pressure 111/50 L 115/51 L 106/44 L Pulse Oximetry 95 94 95 Oxygen Delivery Nasal Cannula Nasal Cannula Nasal Cannula Oxygen Flow Rate 3 2 2 08/17/23 14:30 08/17/23 14:45 08/17/23 15:00 Temperature Pulse Rate 74 76 71 Respiratory Rate 13 18 18 Blood Pressure 113/60 102/51 L 104/50 L Pulse Oximetry 95 99 100 Oxygen Delivery Nasal Cannula Nasal Cannula Nasal Cannula Oxygen Flow Rate 2 2 2 08/17/23 15:15 08/17/23 15:28 08/17/23 15:50 Temperature 97.6 F Pulse Rate 70 68 90 Respiratory Rate 18 14 13 Blood Pressure 103/45 L 103/50 L 120/67 Pulse Oximetry 99 98 94 Oxygen Delivery Nasal Cannula Nasal Cannula Oxygen Flow Rate 2 2 08/17/23 16:08 08/17/23 17:20 08/17/23 21:26 Temperature 98.2 F Pulse Rate 94 86 68 Respiratory Rate 16 13 Blood Pressure 132/58 L Pulse Oximetry 96 94 Oxygen Delivery Nasal Cannula Oxygen Flow Rate 2 08/17/23 21:20 08/18/23 01:20 08/18/23 05:20 Temperature 98 F 97.8 F 97.4 F L Pulse Rate 70 64 63 Respiratory Rate 14 14 14 Blood Pressure 131/53 L 138/51 L 149/41 H Pulse Oximetry 98 99 94 Oxygen Delivery Oxygen Flow Rate 08/18/23 07:56 Temperature 98.3 F Pulse Rate 66 Respiratory Rate 16 Blood Pressure 114/43 L Pulse Oximetry 91 Oxygen Delivery Oxygen Flow Rate Intake/Output Intake/Output: Intake & Output 08/15/23 08/16/23 08/17/23 08/18/23 23:59 23:59 23:59 23:59 Intake To
[2023-08-18 12:04] VITALS: BP 96/65; PULSE 62; RESP 18; TEMP 36.5; O2SAT 94
--- NOTE | 2023-08-18 15:19 | WPDANESPN ---
Anes - Prog Note Post-Op Date/Time: 08/18/23 15:19 Cardiovascular status: normal Respiratory status: normal Airway patency: baseline Mental status: baseline Post-Op hydration status: normal Vital Signs: Last Vital Signs Temp 36.5 C 08/18/23 12:04 Pulse 62 08/18/23 12:04 Resp 18 08/18/23 12:04 BP 96/65 L 08/18/23 12:04 Pulse Ox 94 08/18/23 12:04 O2 Del Method Nasal Cannula 08/17/23 16:08 O2 Flow Rate 2 08/17/23 16:08 Pain Score (VAS): Patient asleep. No nonverbal signs present at this time. I/O: Intake & Output 08/17/23 08/18/23 08/18/23 23:59 07:59 15:59 Intake Total 222 1000 238 Output Total 900 Balance 222 100 238 Laboratory Tests 08/18/23 07:08 08/18/23 07:08 08/18/23 07:08 WBC 6.4 RBC 2.97 L Hgb 8.7 L Hct 28.3 L MCV 95.3 MCH 29.3 MCHC 30.7 L RDW 15.6 H Plt Count 194 MPV 10.4 Sodium 136 L Potassium 3.9 Chloride 107 Carbon Dioxide 25 Anion Gap 4 L BUN 18 H Creatinine 1.10 H Estim Creat Clear Calc 29 Estimated GFR 48 L Glucose 93 Calcium 8.6 Post-procedural complaints: none Patient Feedback: Patient satisfied with anesthetic care.
[2023-08-18 16:00] VITALS: BP 129/50; PULSE 69; RESP 16; TEMP 36.9; O2SAT 95
[2023-08-18] MEDS: PARoxetine 20 MG TABLET PO (20:38)
[2023-08-18] MEDS: rOPINIRole HCL 0.5 MG TABLET PO (20:38)
[2023-08-18 20:40] VITALS: BP 145/57; PULSE 68; RESP 16; TEMP 36.8; O2SAT 95
[2023-08-18] MEDS: bisoproloL fumarate 2.5 MG TABLET PO (20:40)
[2023-08-18] MEDS: LORazepam (*CRX) 1 MG TABLET PO (20:40)
[2023-08-18] MEDS: GABAPENTIN 300 MG CAPSULE PO (20:41)
[2023-08-19] MEDS: HYDROmorphone HCL INJ (*CRX) 1 MG/ML SYR 0.5 MG IV PUSH (00:13)
[2023-08-19 04:42] VITALS: BP 133/60; PULSE 82; RESP 16; TEMP 36.3; O2SAT 90
[2023-08-19] MEDS: ACETAMINOPHEN 500 MG TABLET 1000 MG PO ×4 (05:07→23:41)
[2023-08-19] MEDS: traMADol HCL (*CRX) 50 MG TABLET PO (05:08)
[2023-08-19 07:33] LABS: Hematocrit 28.6 % (37.0-47.0); Hemoglobin 8.5 g/dL (12.0-15.0); Mean Corpuscular HGB Conc 29.7 g/dl (32-36); Mean Corpuscular Hemoglobin 28.8 pg (26-34); Mean Corpuscular Volume 96.9 fl (80-100); Mean Platelet Volume 10.5 fl (7.4-10.4); Platelet Count Result 227 k/mm3 (150-375); Red Blood Count 2.95 M/mm3 (4.2-5.4); Red Cell Distribution Width 15.4 % (11.5-14.5); White Blood Count 8.3 K/mm3 (4.5-10.0)
[2023-08-19 07:51] LABS: Anion Gap 4 mmol/L (4-12); Blood Urea Nitrogen 14 mg/dL (7-17); Calcium 8.8 mg/dL (8.4-10.2); Carbon Dioxide 26 mmol/L (22-30); Chloride 106 mmol/L (98-107); Estimated CRCL calculation 35 ml/min; Estimated Glomerular Filt Rate 60; Glucose 91 mg/dL (65-110); Potassium 3.6 mmol/L (3.4-5.0); Sodium 136 mmol/L (137-145)
[2023-08-19] MEDS: SACUBITRIL/VALSARTAN 12-13 MG TABLET 1 TAB PO ×2 (09:05→20:28)
[2023-08-19] MEDS: LIPASE/AMYLASE/PROTEASE 12,000 UNITS CAP 2 CAP PO ×3 (09:05→17:40)
[2023-08-19] MEDS: EMPAGLIFLOZIN 10 MG TABLET PO (09:09)
[2023-08-19] MEDS: HEPARIN SODIUM 5,000 UNITS/ML VIAL 5000 UNITS SUB-Q ×2 (09:09→20:27)
[2023-08-19] MEDS: ROSUVASTATIN 10 MG TABLET 40 MG PO (09:09)
[2023-08-19] MEDS: PANTOPRAZOLE 40 MG TABLET PO (09:10)
--- NOTE | 2023-08-19 13:24 | PM.PNGS ---
Progress Note: A&P Assessment and Plan (1) Cancer of ascending colon: Code(s): C18.2 - Malignant neoplasm of ascending colon Status: Acute Assessment and Plan: Advance to low fiber diet Will add Ibuprofen as needed for pain to try and avoid narcotics due to her hallucinations and confusion Increase activity as tolerated. PT/OT ordered for discharge planning and evaluate any need for home health or rehab. (2) PEBBLES (iron deficiency anemia): Code(s): D50.9 - Iron deficiency anemia, unspecified Status: Acute Assessment and Plan: Hgb stable (3) Stage 3b chronic kidney disease: Code(s): N18.32 - Chronic kidney disease, stage 3b Status: Acute Assessment and Plan: Stable (4) Nonischemic cardiomyopathy: Code(s): I42.8 - Other cardiomyopathies Status: Acute Plan I have discussed the patient's case and plan of care with Dr. Goldberg. Subjective Subjective Date/Time Seen: 08/19/23 10:24 Post Op day: 2 (Laparoscopic right hemicolectomy with ileocolic anastomosis, da Michael assisted) Patient reports: no new complaints, tolerating a regular diet, flatus and bowel movement Interval history: Patient improved yesterday after having a large BM. She no longer had nausea and her bloating was better. She tolerated full liquids for lunch and dinner. This morning, she felt some nausea before getting her breakfast. Her tray was late and she thinks it was because she did not get to eat. No vomiting. Her daughter is at the bedside and also reports the patient had a visual hallucination this morning as she saw spiders crawling on the wall. She also feels she has been a little confused this morning. The patient has had these issues in the past with oxycodone and hydrocodone, which is why these have been avoided. She is taking scheduled Tylenol as well. The patient does feel like her incisions are more sore today and it is more painful with getting up and moving. No specific abdominal pain at the time of my exam. No other complaints at this time. Review of Systems Review of Systems: All systems reviewed & are unremarkable except as noted in HPI and below Exam Const: General: comfortable and no acute distress Orientation/consciousness: patient oriented x3 GI: Inspection: non-distended and incision (dry and glue intact) GI Palp: Yes Soft to palpation, Yes Tenderness to palpation present (GI) (incisional and right-sided tenderness) and No Guarding due to palpation present (GI) Auscultation: normal bowel sounds Objective Data Vital Signs Vital Signs: Vital Signs - 24 hr 08/18/23 16:00 08/18/23 20:40 08/18/23 20:40 Temperature 98.4 F 98.3 F Pulse Rate 69 68 68 Respiratory Rate 16 16 Blood Pressure 129/50 L 145/57 H Pulse Oximetry 95 95 Oxygen Delivery 08/18/23 20:00 08/19/23 04:42 Temperature 97.4 F L Pulse Rate 82 Respiratory Rate 16 Blood Pressure 133/60 Pulse Oximetry 90 Oxygen Delivery Room Air Intake/Output Intake/Output: Intake & Output 08/16/23 08/17/23 08/18/23 08/19/23 23:59 23:59 23:59 23:59 Intake Total 672 1478 120 Output Total 1400 Balance 672 78 120 Meds/Results Medications: Active Medications Generic Name Dose Route Start Last Admin Trade Name Phillip PRN Reason Stop Dose Admin Acetaminophen 1,000 mg 08/17/23 18:00 08/19/23 11:57 Acetaminophen 500 Mg Tablet PO 1,000 mg Q6HR DURGA Administration Lipase/Protease/Amylase 2 cap 08/17/23 17:00 08/19/23 11:58 Lipase/Amylase/Protease 12,000 Units Cap PO 2 cap TID DURGA Administration Bisoprolol Fumarate 2.5 mg 08/17/23 21:00 08/18/23 20:40 Bisoprolol Fumarate 2.5 Mg Tablet PO 2.5 mg HS DURGA Administration Empagliflozin 10 mg 08/18/23 09:00 08/19/23 09:09 Empagliflozin 10 Mg Tablet PO 10 mg DAILY DURGA Administration Gabapentin 300 mg 08/17/23 21:00 08/18/23 20:41 Gabapentin 300 Mg Capsule PO 300 mg QHS DURGA Administ
[2023-08-19 16:00] VITALS: BP 125/62; PULSE 73; RESP 18; TEMP 37.1; O2SAT 97
[2023-08-19] MEDS: IBUPROFEN 600 MG TABLET PO (20:26)
[2023-08-19 20:27] VITALS: PULSE 74
[2023-08-19] MEDS: GABAPENTIN 300 MG CAPSULE PO (20:27)
[2023-08-19] MEDS: rOPINIRole HCL 0.5 MG TABLET PO (20:27)
[2023-08-19] MEDS: bisoproloL fumarate 2.5 MG TABLET PO (20:27)
[2023-08-19] MEDS: PARoxetine 20 MG TABLET PO (20:27)
[2023-08-19] MEDS: LORazepam (*CRX) 1 MG TABLET PO (21:51)
[2023-08-19 22:52] VITALS: BP 182/77; PULSE 78; RESP 18; TEMP 36.5; O2SAT 96
[2023-08-19 23:05] VITALS: BP 159/69; PULSE 81
[2023-08-19] MEDS: ONDANSETRON INJ 4 MG/2 ML VIAL IV PUSH (23:37)
[2023-08-20 06:00] VITALS: BP 140/87; PULSE 82; RESP 16; TEMP 36.4; O2SAT 95
[2023-08-20 07:01] LABS: Hematocrit 28.7 % (37.0-47.0); Hemoglobin 8.6 g/dL (12.0-15.0); Mean Corpuscular Hemoglobin 28.5 pg (26-34); Mean Platelet Volume 10.7 fl (7.4-10.4); Platelet Count Result 254 k/mm3 (150-375); Red Blood Count 3.02 M/mm3 (4.2-5.4); White Blood Count 8.3 K/mm3 (4.5-10.0)
[2023-08-20 07:17] LABS: Anion Gap 3 mmol/L (4-12); Blood Urea Nitrogen 16 mg/dL (7-17); Calcium 8.9 mg/dL (8.4-10.2); Carbon Dioxide 26 mmol/L (22-30); Chloride 105 mmol/L (98-107); Estimated CRCL calculation 31 ml/min; Estimated Glomerular Filt Rate 53; Glucose 88 mg/dL (65-110); Potassium 3.3 mmol/L (3.4-5.0); Sodium 134 mmol/L (137-145)
[2023-08-20] MEDS: ROSUVASTATIN 10 MG TABLET 40 MG PO (10:03)
[2023-08-20] MEDS: PANTOPRAZOLE 40 MG TABLET PO (10:04)
[2023-08-20] MEDS: HEPARIN SODIUM 5,000 UNITS/ML VIAL 5000 UNITS SUB-Q ×2 (10:04→21:32)
[2023-08-20] MEDS: EMPAGLIFLOZIN 10 MG TABLET PO (10:04)
[2023-08-20] MEDS: LIPASE/AMYLASE/PROTEASE 12,000 UNITS CAP 2 CAP PO ×3 (10:04→17:24)
[2023-08-20] MEDS: SACUBITRIL/VALSARTAN 12-13 MG TABLET 1 TAB PO ×2 (10:04→21:30)
[2023-08-20 12:00] LABS: Alveolar/Arterial O2 Gradient 55.4 mmHg; Base Excess ABG 0.3 mEq/l (+/-2.0); Fractional Inspired Oxygen 21 %; HCO3 ABG 23.6 mEq/l (22.0-26.0); Oxygen Saturation ABG 90.8 % (95.0-100.0); Oxyhemoglobin 89.3 % THb (90.0-100.0); PCO2 ABG 32.9 mmHg (35.0-45.0); PO2 ABG 54.9 mmHg (80.0-100.0); PO2 FiO2 Ratio Arterial Blood 2.61 %; Total Hemoglobin 10.3 g/dL (12.0-18.0); pH ABG 7.473 (7.350-7.450)
[2023-08-20 12:06] LABS: Modified Allen's Test Pass; Site Drawn RIGHT RADIAL
[2023-08-20] MEDS: ACETAMINOPHEN 500 MG TABLET 1000 MG PO ×2 (12:07→17:24)
[2023-08-20] MEDS: POTASSIUM CHLORIDE 20 MEQ ER TABLET 40 MEQ PO ×2 (14:00→17:24)
[2023-08-20] MEDS: BUMETANIDE INJ 1 MG/4 ML VIAL 2 MG IV PUSH (14:00)
[2023-08-20 14:44] VITALS: BP 148/61; PULSE 75; RESP 16; TEMP 36.4; O2SAT 96
--- NOTE | 2023-08-20 14:45 | PM.IMCN ---
Assessment and Plan Assessment and plan (1) Cancer of ascending colon: Code(s): C18.2 - Malignant neoplasm of ascending colon Status: Chronic Assessment and Plan: - colonoscopy (06/23/23) Multiple diverticuli Single flat polyp Partially obstructing circumferential mass observed in the distal ascending colon Medium size internal hemorrhoids - CT abd/pelvis (07/05/23): 3.5 cm segment of ascending colon with suspected wall thickening. This could reflect peristalsis versus possibly colonic adenocarcinoma. - underwent a laparoscopic right hemicolectomy with ileocolic anastomosis , da Michael assisted. performed by Ashlyn GOMEZ on 08/16. - biopsy: Adenocarcinoma, 5.6 cm Eighteen lymph nodes negative for metastatic adenocarcinoma (0) - diet advanced to low fiber diet - LBM today, BRB with wiping after. no dark/tarry stools. confirmed with nursing staff - has since developed VH and confusion this morning (08/19) ABG results: pH 7.473, pCO2 32.9, pO2 54 point, HCO3 23.6, O2 sat 90.8% avoid narcotics UA w/reflex neurochecks UA w/reflex - monitor labs (2) PEBBLES (iron deficiency anemia): Code(s): D50.9 - Iron deficiency anemia, unspecified Status: Acute Assessment and Plan: - Hgb 8.6, previously 11.1 on 08/10 and 8.7 on 08/17 - MCV 95, MCHC 30.0 - monitor (3) Stage 3b chronic kidney disease: Code(s): N18.32 - Chronic kidney disease, stage 3b Status: Acute Assessment and Plan: - creatinine 1.0 - GFR 53, BUN 16 - trend renal function (4) Nonischemic cardiomyopathy: Code(s): I42.8 - Other cardiomyopathies Status: Acute Assessment and Plan: - echo, previous (12/2022): Normal LV size with mild concentric hypertrophy, severe global hypokinesis. EF 20-25%. Grade 2 diastolic dysfunction present. RV mildly enlarged and hypokinesis LA enlargement Moderate to move moderate/severe MR Mild TR Normal pulmonary pressure - IV fluids reduced on 08/18 and has since been discontinued - given 1 time dose of Bumex today, not on home diuretics - daily weights and I&Os Plan Patient underwent a laparoscopic right hemicolectomy with ileocolic anastomosis on 08/16. Initially had some nausea, bloating, and incisional pain. Passed bowel movement yesterday which resolved nausea and bloating. Developed visual hallucinations this morning. Has previously had visual hallucinations with oxycodone and hydrocodone. Plan to avoid narcotics due to history of hallucinations and current hallucinations. Neuro checks. Adding UA. Crackles at bases on exam, given Bumex today, currently requiring supplemental O2. Monitor I&Os and daily weights. Diet: Low-fiber and dietary supplements GI Prophylaxis: Pantoprazole IVP DVT Prophylaxis: SCDs Lines: Peripheral Code Status: Full code HPI Date of Consult Consult date: 08/20/23 Requesting Physician: Jordon Goldberg DO Primary Care Provider: Lupe Petesr MD Consult Narrative Reason for consult: Post Operative Confusion Narrative: 78 y/o F presented here for surgical management of a ascending colon mass found on colonoscopy. CT of the abdomen pelvis did not show any lymphadenopathy, additional masses, or gross findings of metastases. CT scan was done on 07/05/2023. Biopsy taken and confirmed dental carcinoma. Patient had right hemicolectomy robotically assisted done on 08/17/2023. Per chart review, on postop day 1 patient reported some nausea without vomiting, bloating, and mild incisional soreness. No other significant abdominal pain. Did have slight drop in Hgb from 11.1 -> 8.7. General symptoms improved after she passed a large BM. On post op day 2, patient developed hallucinations (visual) and confusion. Has previous history of visual hallucinations with use of oxycodone hydrocodone, is a been avoided due to this history. Described visual hallucinations as spiders on the wall, states s
--- NOTE | 2023-08-20 15:30 | PM.PNGS ---
Progress Note: A&P Assessment and Plan (1) Cancer of ascending colon: Code(s): C18.2 - Malignant neoplasm of ascending colon Status: Chronic Assessment and Plan: Confused after surgery but not angry or agitated. Very calm and conversant. Has had hallucinations but none displayed when I was in the room. Increase ambulation. Advance to regular diet. ABGs were done and she is borderline hypoxemic with O2 sats at 90.8%. I and L has been positive and she has a history of CHF. Will go ahead and give some Bumex for diuresis. (2) Hypokalemia due to loss of potassium: Code(s): E87.6 - Hypokalemia Status: Acute Assessment and Plan: Will replace with oral potassium. Recheck again tomorrow (3) Anemia: Code(s): D64.9 - Anemia, unspecified Status: Acute Assessment and Plan: H&H is low but stable. Suspect most of this is dilutional. Continue to follow. Subjective Subjective Date/Time Seen: 08/20/23 15:30 Post Op day: 2 Patient reports: no new complaints, pain is less, bowel movement and afebrile Exam Const: General: comfortable, alert, awake, well groomed and thin Orientation/consciousness: No oriented to place, No oriented to time and confusion Other: Remains confused. Not agitated, very calm, conversant. GI: Inspection: abdominal wall ecchymosis, non-distended and incision (Healing well) GI Palp: Yes Soft to palpation, Yes Tenderness to palpation present (GI) (Mild), No Guarding due to palpation present (GI) and No Rebound tenderness present Objective Data Vital Signs Vital Signs: Vital Signs - 24 hr 08/19/23 15:35 08/19/23 16:00 08/19/23 20:27 Temperature 37.1 C Pulse Rate 73 74 Respiratory Rate 18 Blood Pressure 125/62 Pulse Oximetry 97 Oxygen Delivery Room Air 08/19/23 22:52 08/19/23 23:05 08/19/23 20:00 Temperature 36.5 C Pulse Rate 78 81 Respiratory Rate 18 Blood Pressure 182/77 H 159/69 H Pulse Oximetry 96 Oxygen Delivery Room Air 08/20/23 06:00 08/20/23 10:04 08/20/23 14:44 Temperature 36.4 C L 36.4 C L Pulse Rate 82 75 Respiratory Rate 16 16 Blood Pressure 140/87 148/61 H Pulse Oximetry 95 96 Oxygen Delivery Room Air Intake/Output Intake/Output: Intake & Output 08/17/23 08/18/23 08/19/23 08/20/23 23:59 23:59 23:59 23:59 Intake Total 672 1478 1170 740 Output Total 1400 Balance 610 27 2635 740 Meds/Results Medications: Active Medications Generic Name Dose Route Start Last Admin Trade Name Freq PRN Reason Stop Dose Admin Acetaminophen 1,000 mg 08/17/23 18:00 08/20/23 12:07 Acetaminophen 500 Mg Tablet PO 1,000 mg Q6HR DURGA Administration Lipase/Protease/Amylase 2 cap 08/17/23 17:00 08/20/23 12:07 Lipase/Amylase/Protease 12,000 Units Cap PO 2 cap TID DURGA Administration Bisoprolol Fumarate 2.5 mg 08/17/23 21:00 08/19/23 20:27 Bisoprolol Fumarate 2.5 Mg Tablet PO 2.5 mg HS DURGA Administration Empagliflozin 10 mg 08/18/23 09:00 08/20/23 10:04 Empagliflozin 10 Mg Tablet PO 10 mg DAILY DURGA Administration Gabapentin 300 mg 08/17/23 21:00 08/19/23 20:27 Gabapentin 300 Mg Capsule PO 300 mg QHS DURGA Administration Heparin Sodium (Porcine) 5,000 units 08/17/23 21:00 08/20/23 10:04 Heparin Sodium 5,000 Units/Ml Vial SUB-Q 5,000 units Q12HR DURGA Administration Hydromorphone HCl 0.5 mg 08/17/23 18:44 08/19/23 00:13 Hydromorphone Hcl Inj (*Crx) 1 Mg/Ml Syr IV PUSH 0.5 mg Q3H PRN Administration Pain Rated 7-10 Ibuprofen 600 mg 08/19/23 13:24 08/19/23 20:26 Ibuprofen 600 Mg Tablet PO 600 mg Q6H PRN Administration Pain Rated 1-3 Lorazepam 1 mg 08/17/23 21:00 08/19/23 21:51 Lorazepam (*Crx) 1 Mg Tablet PO 1 mg HS DURGA Administration Naloxone HCl 0.1 mg 08/17/23 15:35 Naloxone Hcl 0.4 Mg/Ml Vial IV PUSH Q2M PRN Opiate Reversal Ondansetron HCl 4 mg 08/17/23 15:35
[2023-08-20 16:00] VITALS: BP 140/62; PULSE 78; RESP 16; TEMP 36.7; O2SAT 98
--- NOTE | 2023-08-20 18:34 | PC.NURSE ---
Pt continues to be confused. Pt impulsive when getting out of bed. Pt was placed on oxygen and bumex was ordered to help resolve abnormal ABG levels. Pt denies any pain. Pt trochar sites closed with glue, that is dry and intact. Pt unable to participate or contribute in plan of care. Pt has sitter at bedside. Pt family in and out throughout the day. Pt tolerating oxygen well. Pt has been monitored for any changes in status. Will continue to monitor pt.
[2023-08-20 21:30] VITALS: PULSE 87
[2023-08-20] MEDS: bisoproloL fumarate 2.5 MG TABLET PO (21:30)
[2023-08-20] MEDS: PARoxetine 20 MG TABLET PO (21:31)
[2023-08-20] MEDS: rOPINIRole HCL 0.5 MG TABLET PO (21:31)
[2023-08-20] MEDS: GABAPENTIN 300 MG CAPSULE PO (21:31)
[2023-08-20] MEDS: LORazepam (*CRX) 1 MG TABLET PO (21:31)
[2023-08-20 21:49] VITALS: BP 126/57; PULSE 85; RESP 18; TEMP 37.1; O2SAT 98
[2023-08-21] VITALS (7 sets, daily range): BP systolic 130–143; BP diastolic 54–98; PULSE 68–93; RESP 18–20; TEMP 36.6–37; O2SAT 95–99
[2023-08-21] MEDS: ACETAMINOPHEN 500 MG TABLET 1000 MG PO ×3 (06:11→16:44)
[2023-08-21 07:03] LABS: Hemoglobin 8.5 g/dL (12.0-15.0); Mean Corpuscular HGB Conc 30.4 g/dl (32-36); Mean Corpuscular Hemoglobin 28.4 pg (26-34); Mean Corpuscular Volume 93.6 fl (80-100); Mean Platelet Volume 10.8 fl (7.4-10.4); Platelet Count Result 243 k/mm3 (150-375); Red Blood Count 2.99 M/mm3 (4.2-5.4); Red Cell Distribution Width 15.1 % (11.5-14.5); White Blood Count 5.7 K/mm3 (4.5-10.0)
[2023-08-21 07:12] LABS: Anion Gap 7 mmol/L (4-12); Blood Urea Nitrogen 19 mg/dL (7-17); Calcium 8.9 mg/dL (8.4-10.2); Carbon Dioxide 24 mmol/L (22-30); Chloride 107 mmol/L (98-107); Estimated CRCL calculation 31 ml/min; Estimated Glomerular Filt Rate 53; Glucose 105 mg/dL (65-110); Potassium 4.2 mmol/L (3.4-5.0); Sodium 138 mmol/L (137-145)
--- NOTE | 2023-08-21 08:41 | PCOTNOTE ---
Pt declined OT evaluation at this time due to not feeling well. Explained the benefits of therapy. Will follow and try back later this PM.
[2023-08-21] MEDS: EMPAGLIFLOZIN 10 MG TABLET PO (08:52)
[2023-08-21] MEDS: PANTOPRAZOLE 40 MG TABLET PO (08:52)
[2023-08-21] MEDS: SACUBITRIL/VALSARTAN 12-13 MG TABLET 1 TAB PO ×2 (08:52→21:09)
[2023-08-21] MEDS: LIPASE/AMYLASE/PROTEASE 12,000 UNITS CAP 2 CAP PO ×3 (08:52→16:43)
[2023-08-21] MEDS: ROSUVASTATIN 10 MG TABLET 40 MG PO (08:52)
[2023-08-21] MEDS: HEPARIN SODIUM 5,000 UNITS/ML VIAL 5000 UNITS SUB-Q ×2 (08:53→21:10)
[2023-08-21] MEDS: POTASSIUM CHLORIDE 20 MEQ ER TABLET 40 MEQ PO (08:53)
--- NOTE | 2023-08-21 09:11 | PM.IMPN ---
Progress Note: A&P Assessment and Plan (1) Cancer of ascending colon: Code(s): C18.2 - Malignant neoplasm of ascending colon Status: Chronic Assessment and Plan: 08/20/23: - colonoscopy (06/23/23) Multiple diverticuli Single flat polyp Partially obstructing circumferential mass observed in the distal ascending colon Medium size internal hemorrhoids - CT abd/pelvis (07/05/23): 3.5 cm segment of ascending colon with suspected wall thickening. This could reflect peristalsis versus possibly colonic adenocarcinoma. - underwent a laparoscopic right hemicolectomy with ileocolic anastomosis , da Michael assisted. performed by Ashlyn GOMEZ on 08/16. - biopsy: Adenocarcinoma, 5.6 cm Eighteen lymph nodes negative for metastatic adenocarcinoma (0) - diet advanced to low fiber diet - LBM today, BRB with wiping after. no dark/tarry stools. confirmed with nursing staff - has since developed VH and confusion this morning (08/19) ABG results: pH 7.473, pCO2 32.9, pO2 54 point, HCO3 23.6, O2 sat 90.8% avoid narcotics UA w/reflex neurochecks UA w/reflex - monitor labs 08/21/23: Postop day 1 from a laparoscopic right hemicolectomy with ileocolic anastomosis Lap sites and incision with surgical glue open to air, no signs of infection, incision is well approximated General surgery following (2) PEBBLES (iron deficiency anemia): Code(s): D50.9 - Iron deficiency anemia, unspecified Status: Acute Assessment and Plan: 08/20/23: - Hgb 8.6, previously 11.1 on 08/10 and 8.7 on 08/17 - MCV 95, MCHC 30.0 - monitor 08/21/23: Continue to monitor Hemoglobin today is 8.5 Will restart ferrous sulfate (3) Stage 3b chronic kidney disease: Code(s): N18.32 - Chronic kidney disease, stage 3b Status: Acute Assessment and Plan: 08/20/23: - creatinine 1.0 - GFR 53, BUN 16 - trend renal function 08/21/23: Creatinine 1.0, EGFR 53 Continue to trend (4) Nonischemic cardiomyopathy: Code(s): I42.8 - Other cardiomyopathies Status: Acute Assessment and Plan: 08/20/23: - echo, previous (12/2022): Normal LV size with mild concentric hypertrophy, severe global hypokinesis. EF 20-25%. Grade 2 diastolic dysfunction present. RV mildly enlarged and hypokinesis LA enlargement Moderate to move moderate/severe MR Mild TR Normal pulmonary pressure - IV fluids reduced on 08/18 and has since been discontinued - given 1 time dose of Bumex today, not on home diuretics - daily weights and I&Os 08/21/23: Will go ahead and restart spironolactone today We will also get a chest x-ray to rule out any kind of a pneumonia Incentive spirometer ordered Patient currently on 1-1.5 L nasal cannula Will give an IV dose of Bumex now Time Spent With Patient Time with patient: 25 - 35 minutes Subjective Date/time seen: 08/21/23 09:11 Interval history: This is an 78 year old female who has been under the care of general surgery and underwent a laparoscopic right hemicolectomy with ileocolic anastomosis on 08/17/23. We were consulted for medical management. Patient was given narcotic pain medications and was having visual hallucinations. Narcotics were discontinued. UA was performed which was negative. Crackles noted in the bases and was given a dose of Bumex. On examination today patient is alert and oriented times 4, lying in the bed. She denies any fever, chills, nausea, vomiting, diarrhea, abdominal pain, chest pain, headache, shortness of breath. She is currently on 1-1.5 L nasal cannula, vital signs are stable, she is afebrile. On examination today her lungs are coarse bilaterally. We will go ahead and get a chest x-ray now to rule out any find a pneumonia. We will also add incentive spirometry. Labs today revealed Hgb 8.5, otherwise unremarkable. Will restart her ferrous sulfate and her spironolactone today. Review of Systems Review of Systems: All systems reviewed &
--- NOTE | 2023-08-21 15:30 | PM.PNGS ---
Progress Note: A&P Assessment and Plan (1) Cancer of ascending colon: Code(s): C18.2 - Malignant neoplasm of ascending colon Status: Chronic Assessment and Plan: Improving. Advance to regular diet. Multiple stools of yesterday now see much better. Patient diuresed yesterday but still has some basilar crackles. Will give another dose of Bumex today. Hopefully can come off oxygen today or tomorrow. (2) Chronic renal insufficiency, stage III (moderate): Code(s): N18.30 - Chronic kidney disease, stage 3 unspecified Status: Chronic (3) CHF (congestive heart failure): Code(s): I50.9 - Heart failure, unspecified Status: Chronic Subjective Subjective Date/Time Seen: 08/21/23 15:30 Post Op day: 4 Patient reports: no new complaints, feels better, tolerating a regular diet, diarrhea (Mostly yesterday, better today), shortness of breath (Improved but still is on oxygen.) and afebrile Review of Systems Review of Systems: All systems reviewed & are unremarkable except as noted in HPI and below (HPI) Exam Const: General: cooperative, comfortable, alert and awake Resp: Effort & Inspection: normal respiratory effort Auscultation: crackles on the left at the base GI: Inspection: non-distended and incision (Healing well) GI Palp: Yes Soft to palpation and No Tenderness to palpation present (GI) Auscultation: normal bowel sounds Objective Data Vital Signs Vital Signs: Vital Signs - 24 hr 08/20/23 16:00 08/20/23 21:30 08/20/23 21:49 Temperature 36.7 C 37.1 C Pulse Rate 78 87 85 Respiratory Rate 16 18 Blood Pressure 140/62 126/57 L Pulse Oximetry 98 98 Oxygen Delivery Oxygen Flow Rate 08/20/23 20:00 08/21/23 06:00 08/21/23 10:33 Temperature 36.6 C Pulse Rate 93 Respiratory Rate 20 Blood Pressure 131/67 Pulse Oximetry 96 95 Oxygen Delivery Room Air Nasal Cannula Oxygen Flow Rate 1 08/21/23 09:00 08/21/23 09:00 08/21/23 09:00 Temperature 37.0 C 37.0 C Pulse Rate 83 83 Respiratory Rate 18 18 Blood Pressure 143/55 H 143/55 H Pulse Oximetry 96 96 96 Oxygen Delivery Nasal Cannula Oxygen Flow Rate 1.5 Intake/Output Intake/Output: Intake & Output 08/18/23 08/19/23 08/20/23 08/21/23 23:59 23:59 23:59 23:59 Intake Total 1478 1170 1870 740 Output Total 1400 Balance 78 1170 1870 740 Meds/Results Medications: Active Medications Generic Name Dose Route Start Last Admin Trade Name Freq PRN Reason Stop Dose Admin Acetaminophen 1,000 mg 08/17/23 18:00 08/21/23 13:06 Acetaminophen 500 Mg Tablet PO 1,000 mg Q6HR DURGA Administration Lipase/Protease/Amylase 2 cap 08/17/23 17:00 08/21/23 13:06 Lipase/Amylase/Protease 12,000 Units Cap PO 2 cap TID DURGA Administration Bisoprolol Fumarate 2.5 mg 08/17/23 21:00 08/20/23 21:30 Bisoprolol Fumarate 2.5 Mg Tablet PO 2.5 mg HS DURGA Administration Empagliflozin 10 mg 08/18/23 09:00 08/21/23 08:52 Empagliflozin 10 Mg Tablet PO 10 mg DAILY DURGA Administration Gabapentin 300 mg 08/17/23 21:00 08/20/23 21:31 Gabapentin 300 Mg Capsule PO 300 mg QHS DURGA Administration Heparin Sodium (Porcine) 5,000 units 08/17/23 21:00 08/21/23 08:53 Heparin Sodium 5,000 Units/Ml Vial SUB-Q 5,000 units Q12HR DURGA Administration Hydromorphone HCl 0.5 mg 08/17/23 18:44 08/19/23 00:13 Hydromorphone Hcl Inj (*Crx) 1 Mg/Ml Syr IV PUSH 0.5 mg Q3H PRN Administration Pain Rated 7-10 Ibuprofen 600 mg 08/19/23 13:24 08/19/23 20:26 Ibuprofen 600 Mg Tablet PO 600 mg Q6H PRN Administration Pain Rated 1-3 Lorazepam 1 mg 08/17/23 21:00 08/20/23 21:31 Lorazepam (*Crx) 1 Mg Tablet PO 1 mg HS DURGA Administration Naloxone HCl 0.1 mg 08/17/23 15:35 Naloxone Hcl 0.4 Mg/Ml Vial IV PUSH Q2M PRN Opiate Reversal Ondansetron HCl 4 mg 08/17/23 15:35 08/19/23 23:37 Ondansetron Inj 4 Mg/2 Ml Vial IV PUSH
[2023-08-21] MEDS: BUMETANIDE INJ 1 MG/4 ML VIAL IV PUSH ×2 (16:20→16:43)
[2023-08-21] MEDS: LORazepam (*CRX) 1 MG TABLET PO (21:09)
[2023-08-21] MEDS: PARoxetine 20 MG TABLET PO (21:09)
[2023-08-21] MEDS: bisoproloL fumarate 2.5 MG TABLET PO (21:09)
[2023-08-21] MEDS: rOPINIRole HCL 0.5 MG TABLET PO (21:10)
[2023-08-21] MEDS: GABAPENTIN 300 MG CAPSULE PO (21:10)
[2023-08-22] MEDS: ACETAMINOPHEN 500 MG TABLET 1000 MG PO ×3 (00:12→12:00)
[2023-08-22] MEDS: QUEtiapine FUMARATE 12.5 MG TABLET PO (01:02)
[2023-08-22 05:33] VITALS: BP 143/81; PULSE 94; RESP 20; TEMP 36.4; O2SAT 98
[2023-08-22 07:05] LABS: Hematocrit 28.9 % (37.0-47.0); Hemoglobin 8.8 g/dL (12.0-15.0); Mean Corpuscular HGB Conc 30.4 g/dl (32-36); Mean Corpuscular Hemoglobin 29.1 pg (26-34); Mean Corpuscular Volume 95.7 fl (80-100); Mean Platelet Volume 10.7 fl (7.4-10.4); Platelet Count Result 295 k/mm3 (150-375); Red Blood Count 3.02 M/mm3 (4.2-5.4); Red Cell Distribution Width 15.5 % (11.5-14.5); White Blood Count 5.4 K/mm3 (4.5-10.0)
[2023-08-22 07:28] LABS: Anion Gap 3 mmol/L (4-12); Blood Urea Nitrogen 24 mg/dL (7-17); Calcium 8.7 mg/dL (8.4-10.2); Carbon Dioxide 28 mmol/L (22-30); Chloride 104 mmol/L (98-107); Estimated CRCL calculation 31 ml/min; Estimated Glomerular Filt Rate 53; Glucose 103 mg/dL (65-110); Potassium 4.4 mmol/L (3.4-5.0); Sodium 135 mmol/L (137-145)
[2023-08-22 08:00] VITALS: O2SAT 97
[2023-08-22] MEDS: LIPASE/AMYLASE/PROTEASE 12,000 UNITS CAP 2 CAP PO ×2 (08:05→12:00)
[2023-08-22] MEDS: FERROUS SULFATE 325 MG TABLET DR BY MOUTH (08:05)
[2023-08-22] MEDS: ROSUVASTATIN 10 MG TABLET 40 MG PO (08:05)
[2023-08-22] MEDS: PANTOPRAZOLE 40 MG TABLET PO (08:05)
[2023-08-22] MEDS: POTASSIUM CHLORIDE 20 MEQ ER TABLET PO (08:06)
[2023-08-22] MEDS: EMPAGLIFLOZIN 10 MG TABLET PO (08:06)
[2023-08-22] MEDS: HEPARIN SODIUM 5,000 UNITS/ML VIAL 5000 UNITS SUB-Q (08:06)
[2023-08-22] MEDS: SACUBITRIL/VALSARTAN 12-13 MG TABLET 1 TAB PO (08:08)
[2023-08-22 09:10] LABS: Iron 40 ug/dL (37-170)
[2023-08-22 09:19] LABS: Percent Iron Saturation 19 % (20-50)
[2023-08-22 10:27] VITALS: O2SAT 97
--- NOTE | 2023-08-22 11:34 | PM.DS ---
DS: Admitting Diagnosis Discharge Date 08/22/2023 Admitting Diagnosis Ascending colon cancer Congestive heart failure Chronic kidney disease stage 3 Essential hypertension DS: Discharge Diagnosis Discharge Diagnosis (1) Cancer of ascending colon: Code(s): C18.2 - Malignant neoplasm of ascending colon Status: Chronic (2) CHF (congestive heart failure): Code(s): I50.9 - Heart failure, unspecified Status: Chronic (3) Stage 3b chronic kidney disease: Code(s): N18.32 - Chronic kidney disease, stage 3b Status: Acute (4) Pancreatic insufficiency: Code(s): K86.89 - Other specified diseases of pancreas Status: Acute (5) Hypertension: Qualifiers: Hypertension type: essential hypertension Qualified Code(s): I10 - Essential (primary) hypertension Code(s): I10 - Essential (primary) hypertension Status: Chronic DS: Summary Hospital Course Hospital Course: Patient was taken to surgery on the day of admission, 08/17/2023, and robotic assisted laparoscopic right colectomy was performed. Patient had some mild nausea on postoperative day 1. But no vomiting. Her diet was slowly advanced. On postop day 2. She developed some mental status changes and had hallucinations. Although not agitated, she was still very confused on postop day number 3. Her narcotic analgesics had been greatly reduced and she was no longer taking them. She was noted to be mildly hypoxemic and had crackles at the bases on her chest exam. She was given Bumex on postop day 3. And again on postoperative day 4. She diuresed well. Each day, she was less confused and more active. By postop day 5., she was tolerating a regular diet. Her lungs were clear and she was ambulating. She was not requiring any analgesics. She had some diarrhea on postop day 3 but this resolved after that. Her pathology showed this to be a T3 N0 M0 tumor or stage II A. This was discussed with the patient. She was discharged on postop day 5. In good condition. She lives with her daughter. She has [facility] after discharge providing PT and OT therapies. Status at Discharge Overall status at discharge: patient is progressing back to baseline Time Spent with Patient Time attestation: Total time spent providing and/or coordinating discharge services: Time spent: Less than 30 minutes DS: Data Data Completed and Pending Completed studies during hospitalization: Pending at discharge 08/17/23 12:51 Surgical [PTH] Routine Labs on day of discharge: Labs from last 24 hours 08/22/23 06:30 WBC 5.4 RBC 3.02 L Hgb 8.8 L Hct 28.9 L MCV 95.7 MCH 29.1 MCHC 30.4 L RDW 15.5 H Plt Count 295 MPV 10.7 H Sodium 135 L Potassium 4.4 Chloride 104 Carbon Dioxide 28 Anion Gap 3 L BUN 24 H Creatinine 1.00 Estim Creat Clear Calc 31 Estimated GFR 53 L Glucose 103 Calcium 8.7 Iron 40 TIBC 210 L % Saturation 19 L Discharge Plan Discharge Attending physician on discharge: Jordon Goldberg Consulting providers: Russell Aguero Discharging Clinician: Mamadou Cordova Anticipated Discharge Date/Time: 08/22/23 11:45 Patient Disposition: Home Health Service Activity: may shower, no straining, no driving and as tolerated Diet: regular Wound Care Instructions: incision open to air Discharge Instructions: Per Care Coordination, patient to discharge with [facility] ([phone]) for PT/PT and assisted services. Agency will call to arrange initial visit. Ambulate 3-4 x per day and as tolerated. No lifting over 15-20lbs. May bathe or shower. Wash over incisions with soap and water whenever bathe or shower. Stairs are OK. See Dr. Goldberg in 2 weeks Take only Tylenol or ibuprofen prescription on an as needed basis for postop pain. Patient Instructions: Antibiotic Form, Pain Management (DC) Stand Alone Forms: [employer]
== END 2023-08-22 13:45 | disposition home health service (06) | DRG 330 ==
LOC: ANH3MEDSUR 08-18 12:59
PROVIDERS: Nurse Practitioner; Nurse Practitioner Family; Admitting Provider Surgery; PCP Family Medicine; Visit Provider Surgery
PROC: 0DTF4ZZ Resection of Right Large Intestine, Percutaneous Endoscopic Approach (ICD-10-PCS; principal; 2023-08-17 09:30)
DX: C18.2 Malignant neoplasm of ascending colon (principal); I42.8 Other cardiomyopathies; I50.42 Chronic combined systolic (congestive) and diastolic (congestive) heart failure; I11.0 Hypertensive heart disease with heart failure; I34.0 Nonrheumatic mitral (valve) insufficiency; N18.32 Chronic kidney disease, stage 3b; D50.9 Iron deficiency anemia, unspecified; E78.5 Hyperlipidemia, unspecified; K21.9 Gastro-esophageal reflux disease without esophagitis; K58.0 Irritable bowel syndrome with diarrhea; R09.02 Hypoxemia; R44.1 Visual hallucinations; T40.605A Adverse effect of unspecified narcotics, initial encounter; F41.9 Anxiety disorder, unspecified; Z87.891 Personal history of nicotine dependence
CPT/HCPCS: 36415; 36600; 71045; 80048; 82805; 83540; 83550; 85027; 88309; 97110; 97161; 97165; 97530; A9270; J0330; J0690; J1170; J1644; J1836; J1885; J1939; J2371; J2405; J2704; J3010; J7030; J7120

== ENCOUNTER 2023-08-24 11:24 | Outpatient (CLI) | payer MEDICARE, SELFPAY ==
[2023-08-24 11:49] LABS: Basophils Absolute Auto 0.1 K/mm3 (0.0-0.1); Basophils Percent Auto 1.3 % (0.2-1.2); Eosinophils Absolute Auto 0.9 K/mm3 (0-0.3); Eosinophils Percent Auto 14.4 % (0-4.4); Hematocrit 29.4 % (37.0-47.0); Hemoglobin 8.9 g/dL (12.0-15.0); Immature Granulocyte Absolute 0.09 K/mm3 (0.00-0.031); Immature Granulocyte Percent A 1.4 % (0-0.5); Lymphocytes Absolute Auto 1.53 K/mm3 (0.9-3.2); Lymphocytes Percent Auto 24.4 % (18.3-44.2); Mean Corpuscular HGB Conc 30.3 g/dl (32-36); Mean Corpuscular Hemoglobin 29.1 pg (26-34); Mean Corpuscular Volume 96.1 fl (80-100); Mean Platelet Volume 10.1 fl (7.4-10.4); Monocytes Absolute Auto 0.5 K/mm3 (0.1-0.6); Neutrophils Absolute Auto 3.2 K/mm3 (1.3-6.7); Neutrophils Percent Auto 50.5 % (45.5-73.1); Platelet Count Result 379 k/mm3 (150-375); Red Blood Count 3.06 M/mm3 (4.2-5.4); Red Cell Distribution Width 15.8 % (11.5-14.5); White Blood Count 6.3 K/mm3 (4.5-10.0)
[2023-08-24 11:57] LABS: Alanine Aminotransferase 19 U/L (6-35); Albumin Level 3.6 g/dL (3.5-5.1); Alkaline Phosphatase 72 U/L (38-126); Anion Gap 6 mmol/L (4-12); Aspartate Amino Transferase 26 U/L (14-36); Bilirubin,Total 0.3 mg/dL (0.2-1.3); Blood Urea Nitrogen 22 mg/dL (7-17); Calcium 9.2 mg/dL (8.4-10.2); Carbon Dioxide 24 mmol/L (22-30); Chloride 108 mmol/L (98-107); Estimated Glomerular Filt Rate 53; Glucose 171 mg/dL (65-110); Sodium 138 mmol/L (137-145)
== END 2023-08-24 11:25 | disposition home or self-care (01) ==
PROVIDERS: PCP Family Medicine; Visit Provider Nurse Practitioner Adult Health
DX: D64.9 Anemia, unspecified (principal); E87.6 Hypokalemia; N18.30 Chronic kidney disease, stage 3 unspecified
CPT/HCPCS: 36415; 80053; 85025

== ENCOUNTER 2023-09-06 11:14 | Outpatient (CLI) | payer MEDICARE, SELFPAY ==
[2023-09-06 12:09] LABS: Albumin Level 4.5 g/dL (3.5-5.1); Anion Gap 12 mmol/L (4-12); Blood Urea Nitrogen 41 mg/dL (7-17); Calcium 10.3 mg/dL (8.4-10.2); Carbon Dioxide 21 mmol/L (22-30); Chloride 106 mmol/L (98-107); Estimated Glomerular Filt Rate 27; Glucose 109 mg/dL (65-110); Phosphorus 4.8 mg/dL (2.5-4.5); Potassium 4.5 mmol/L (3.4-5.0); Sodium 139 mmol/L (137-145)
[2023-09-06 12:12] LABS: Complement C3 157 mg/dL (88-165)
[2023-09-06 13:03] LABS: Creatinine Urine 155.6 mg/dL; Total Protein Urine Random 10 mg/dL; Ur Ttl Prot Creatinine Ratio 0.06 mg/mg (0-0.20)
[2023-09-08 14:23] LABS: Creatinine, Random Urine 142 mg/dL (20-275); Total Protein/Creatinine Ratio 169 mg/g creat (24-184)
[2023-09-08 15:12] LABS: Anti Glomerular Basement Memb <1.0 AI
[2023-09-08 17:54] LABS: Albumin 3.6 g/dL (3.8-4.8); Alpha 1 Globulin 0.4 g/dL (0.2-0.3); Alpha 2 Globulin 1.2 g/dL (0.5-0.9); Beta 1 Globulin 0.5 g/dL (0.4-0.6)
[2023-09-09 11:58] LABS: ANCA Screen NEGATIVE (NEGATIVE)
== END 2023-09-06 11:15 | disposition home or self-care (01) ==
LOC: ANHLAB 11:21
PROVIDERS: PCP Family Medicine; Visit Provider Internal Medicine Nephrology
DX: N18.32 Chronic kidney disease, stage 3b (principal); I42.8 Other cardiomyopathies
CPT/HCPCS: 36415; 80069; 82570; 83520; 84155; 84156; 84165; 84166; 86036; 86038; 86160; 86225

== ENCOUNTER 2023-09-09 10:56 | Outpatient (CLI) | payer MEDICARE, SELFPAY ==
--- NOTE | ~2023-09-09 | US_ITS ---
Renal-Bladder ultrasound Clinical History: Chronic kidney disease Technique: Real-time sonographic imaging of the kidneys and urinary bladder was performed. Findings: The right kidney measures 9.1 cm in length and the left kidney measures 9.2 cm. There is no hydronephrosis or renal calculus identified. Renal cortical echogenicity is within normal limits. No renal mass lesion is identified. The urinary bladder is moderately distended at the time of this exam. No intraluminal echoes are iden tified. No abnormal wall thickening is seen. Impression: Unremarkable ultrasound of the kidneys and urinary bladder. Reviewed, dictated and finalized at location . Impression: Unremarkable ultrasound of the kidneys and urinary bladder.
== END 2023-09-09 10:57 ==
LOC: MICIMG 10:57
PROVIDERS: PCP Internal Medicine Nephrology; Visit Provider Internal Medicine Nephrology
DX: N18.32 Chronic kidney disease, stage 3b (principal); I42.8 Other cardiomyopathies
CPT/HCPCS: 76775

== ENCOUNTER 2023-10-20 10:52 | Inpatient (IN) | payer MEDICARE, SELFPAY ==
[2023-10-20] VITALS (21 sets, daily range): BP systolic 117–183; BP diastolic 51–85; PULSE 62–90; RESP 15–26; TEMP 35.6–36.7; O2SAT 95–100; BMI 24.2
--- NOTE | ~2023-10-20 | CT_ITS ---
Clinical Indication: Elevated d-dimer CT Scan of the Chest with Contrast: Technique: Contiguous sections were acquired throughout the chest after intravenous administration of 100 cc of Omnipaque 350. Dose reduction technique was used on this scan by utilizing automated expos ure control and iterative reconstruction technique. The dose-length product (DLP) was 210.75 mGy-cm. Findings: There is no evidence of any significant mediastinal, hilar or axillary lymphadenopathy. There is no f illing defect in the pulmonary arterial tree to suggest pulmonary embolus. There is no evidence of ao rtic dissection or aneurysm. There is no evidence of pleural or pericardial effusion. The lungs are clear. No pulmonary nodules or infiltrates are noted. Images through the upper abdomen reveal pneumobilia. Extensive degenerative changes thoracic spine no odilon. Impression: No evidence of pulmonary embolus, aortic dissection, or aortic aneurysm. Clear lungs. Reviewed, dictated and finalized at [facility]. Impression: No evidence of pulmonary embolus, aortic dissection, or aortic aneurysm. Clear lungs.
--- NOTE | ~2023-10-20 | XR_ITS ---
EXAMINATION: XR chest 1V DATE: 10/20/2023 12:17 INDICATION: Shortness of breath. Fall. TECHNIQUE: A single frontal view of the chest was obtained. COMPARISON: Chest single view 08/21/2023 FINDINGS: A calcified right lung nodule is consistent with old granulomatous disease. No pleural effu andrei or pneumothorax. The heart size is normal. IMPRESSION: 1. No acute cardiopulmonary disease. Reviewed, dictated and finalized at location A.
--- NOTE | ~2023-10-20 | CT_ITS ---
EXAMINATION: CTA brain carotid DATE: 10/20/2023 12:14 INDICATION: Falls. TECHNIQUE: Computed tomographic angiography (CTA) of the head was performed without and with 100 mL O mnipaque-350 intravenous contrast. CTA of the neck was performed with intravenous contrast. Automated exposure control and iterative reconstruction technique were employed. The dose-length product was 1 794.41 mGy-cm. Maximum intensity projection and volume rendered 3D-reconstructions were created by danish olmedo technologist on a separate workstation. COMPARISON: Head CT 04/02/2023 FINDINGS: HEAD CTA: There is an old infarct in right cerebellum. There is an old infarct in the left basal gang viktor. There are scattered areas of low attenuation in the cerebral white matter. There is no intracran ial hemorrhage, acute infarction, or abnormal intracranial mass lesion. The ventricles are normal in size. There are changes of left-sided scleral banding procedure. There are likely changes of left ocu lar lens replacement surgery. There is mild mucosal thickening in the paranasal sinuses. The mastoid air cells are normal. The vertebral arteries are codominant. There is no significant stenosis of basi lar artery or left posterior cerebral artery. There is total occlusion of right posterior cerebral ar jerry. There is no significant stenosis of intracranial internal carotid arteries or anterior or middl e cerebral arteries. Anterior communicating artery is normal. There is no aneurysm. The posterior com municating arteries are normal. NECK CTA: There is mild scarring at the lung apices. There are no pathologically enlarged lymph nodes . There is plaque in the proximal internal carotid arteries. There is 40% stenosis of the proximal ri ght internal carotid artery relative to normal distal artery lumen diameter (NASCET criteria). There is 0% stenosis of the proximal left internal carotid artery relative to normal distal artery lumen di ameter. There is severe cervical and thoracic spondylosis. IMPRESSION: 1. Old infarcts in the right cerebellum and left basal ganglia. 2. Moderate nonspecific cerebral white matter disease, which likely represents chronic small vessel i schemic disease. 3. 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 4. 40% stenosis of the proximal right internal carotid artery relative to normal distal artery lumen diameter (NASCET criteria). 5. 0% stenosis of the proximal left internal carotid artery relative to normal distal artery lumen di ameter. Reviewed, dictated and finalized at location A. IMPRESSION: 1. Old infarcts in the right cerebellum and left basal ganglia. 2. Moderate nonspecific cerebral white matter disease, which likely represents chronic small vessel ischemic disease. 3. 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 4. 40% stenosis of the proximal right internal carotid artery relative to colten l distal artery lumen diameter (NASCET criteria). 5. 0% stenosis of the proximal left internal carotid artery relative to normal distal artery lumen diameter.
--- NOTE | ~2023-10-20 | CT_ITS ---
EXAMINATION: CT brain wo con DATE: 10/21/2023 10:23 INDICATION: Mental status change. TECHNIQUE: Computed tomography (CT) of the head was performed without intravenous contrast. The mA wa s adjusted according to patient size. Iterative reconstruction technique was employed. The dose-lengt h product was 681.00 mGy-cm. COMPARISON: Head CT 10/20/2023 FINDINGS: There are old infarcts in the right cerebellum and left basal ganglia. There are scattered areas of low attenuation in the cerebral white matter. There is no intracranial hemorrhage, acute inf arction, or abnormal intracranial mass lesion. The ventricles are normal in size. There are likely ch anges of left ocular lens replacement surgery. There are changes of left-sided scleral banding proced ure. There is mild mucosal thickening in the paranasal sinuses. The mastoid air cells are normal. IMPRESSION: 1. Old infarcts in the right cerebellum and left basal ganglia. 2. Stable moderate nonspecific cerebral white matter disease, which likely represents chronic small v essel ischemic disease. Reviewed, dictated and finalized at location A. IMPRESSION: 1. Old infarcts in the right cerebellum and left basal ganglia. 2. Stable moderate nonspecific cerebral white matter disease, which likely repr esents chronic small vessel ischemic disease.
--- NOTE | ~2023-10-20 | MR_ITS ---
EXAMINATION: MR brain/brain stem wo/w con DATE: 10/21/2023 11:00 INDICATION: Cerebrovascular accident. TECHNIQUE: Magnetic resonance imaging (MRI) of the brain and brainstem was performed without and with 13 mL MultiHance intravenous contrast. COMPARISON: Head CT 10/21/2023 FINDINGS: There is an acute infarct involving the posterior limb left internal capsule and left lenti form nucleus. There is an old infarct in right cerebellum. There are scattered areas of nonspecific i ncreased T2-weighted signal intensity in the cerebral white matter and sudeep. There is no intracranial hemorrhage or abnormal mass lesion. The ventricles are normal in size. There are likely changes of l eft ocular lens replacement surgery. There are changes of left-sided scleral banding procedure. The m astoid air cells are normal. There is mild mucosal thickening in the paranasal sinuses. IMPRESSION: 1. Acute infarct involving the posterior limb left internal capsule and left lentiform nucleus. 2. Old infarct in the right cerebellum. 3. Moderate nonspecific cerebral white matter disease and pontine disease, which likely represents ch ronic small vessel ischemic disease. Reviewed, dictated and finalized at location A. IMPRESSION: 1. Acute infarct involving the posterior limb left internal capsule and left le ntiform nucleus. 2. Old infarct in the right cerebellum. 3. Moderate nonspecific cerebral white matter disease and pontine disease, whic h likely represents chronic small vessel ischemic disease.
--- NOTE | 2023-10-20 10:53 | ECG_ITS ---
SEE SCANNED COPY FOR CONFIRMED REPORT MTDD
--- NOTE | 2023-10-20 11:15 | ED.GENADULT ---
HPI - General Adult General Chief complaint: Fall Stated complaint: rapid response Time Seen by Provider: 10/20/23 10:52 Source: patient and family (daughter) Mode of arrival: wheelchair (from lobby after rapid response) Limitations: no limitations History of Present Illness HPI narrative: Patient was a rapid response in the hospital lobby for a witnessed fall. Patient has been having recurrent falls. She denies any loss of consciousness and she doesn't know why she keeps falling. Lives by herself. Has had to start using a walker over the past few months because of this but didn't previously need this. Patient did not strike head per herself and her daughter. Denies abdominal pain. LBM this morning and she states she was very unsteady for approximately 1 hour afterwards. No chest pain, headache or current shortness of breath but daughter says she was complaining of SOB yesterday. She has also complained intermittently of right sided weakness and numbness and tingling. History of heart failure. Has not noted a particular association with falls preceded by position changes or head changes. Denies dizziness. Symptoms started after undergoing a colon surgery months ago. Related Data Home Medications Medication Instructions Recorded Confirmed omeprazole magnesium 20 mg 20 mg PO DAILY 05/09/19 10/20/23 tablet,delayed release (Prilosec OTC) sacubitril 24 mg-valsartan 26 mg 0.5 tablet PO Q12HR 01/29/23 10/20/23 tablet (Entresto) spironolactone 25 mg tablet 12.5 mg PO DAILY PRN Hypertension 04/13/23 10/20/23 acetaminophen 500 mg capsule 500 mg PO Q6H PRN Pain 08/11/23 10/20/23 ascorbic acid (vitamin C) 1,000 mg 1 g PO DAILY 08/11/23 10/20/23 capsule cyanocobalamin (vitamin B-12) 1,000 mcg PO DAILY 08/11/23 10/20/23 1,000 mcg tablet ferrous sulfate 325 mg (65 mg 325 mg PO DAILY 08/11/23 10/20/23 iron) tablet Allergies Allergy/AdvReac Type Severity Reaction Status Date / Time oxycodone AdvReac Intermediate Hallucinati Verified 10/20/23 16:39 ng codeine AdvReac Unknown Vomiting Verified 10/20/23 16:39 hydrocodone AdvReac Hallucinati Verified 10/20/23 16:39 ng morphine AdvReac Nausea Verified 10/20/23 16:39 [facility] Past Medical History Medical History Anxiety Chronic diarrhea Chronic kidney disease, stage 3 Combined systolic and diastolic heart failure Nonischemic Gastroesophageal reflux disease Hyperlipidemia Hypertension Idiopathic pancreatitis Irritable bowel syndrome with diarrhea Left bundle branch block Macular degeneration Mitral regurgitation Nonischemic cardiomyopathy Sphincter of Oddi dysfunction Tobacco use Surgical History Surgical History History of bunionectomy History of cardiac catheterization (02/01/23) Right coronary dominant circulation with no angiographically significant coronary artery disease. Left ventricle was enlarged with severe cardiomyopathy and EF of 25 30%. History of cataract extraction with lens replacement History of cholecystectomy History of detached retina repair History of foot surgery History of hysterectomy Family History Family History Sibling IBS (irritable bowel syndrome) Grandparent Colitis Mother Sphincter of Oddi dysfunction Daughter Sphincter of Oddi dysfunction Father HLD (hyperlipidemia) Hypertension Acute myocardial infarction Other Carcinoma of colon Social History Social History (Updated 10/20/23 @ 21:57 by Nya Eckert MD) Social History: Surrogate medical decision maker: Lacy Dugan, daughter. Code status: Full code. Smoking packs per day: 0.5 Smoking cigarettes per day: 10.0 Years smoked: 12 Smoking pack-years: 6.00 Smoking status: Former smoker Tobacco type: cigarettes Second hand tobacco smoke exposure: Yes Alcohol intake: never Alcohol use details: Ocassional Subst
[2023-10-20 11:25] LABS: Basophils Percent Auto 0.3 % (0.2-1.2); Eosinophils Percent Auto 0.2 % (0-4.4); Hematocrit 38.3 % (37.0-47.0); Hemoglobin 11.8 g/dL (12.0-15.0); Immature Granulocyte Percent A 1.5 % (0-0.5); Lymphocytes Absolute Auto 1.95 K/mm3 (0.9-3.2); Lymphocytes Percent Auto 29.4 % (18.3-44.2); Mean Corpuscular HGB Conc 30.8 g/dl (32-36); Mean Corpuscular Hemoglobin 28.3 pg (26-34); Mean Corpuscular Volume 91.8 fl (80-100); Mean Platelet Volume 10.4 fl (7.4-10.4); Monocytes Absolute Auto 0.5 K/mm3 (0.1-0.6); Monocytes Percent Auto 7.8 % (2.6-8.5); Neutrophils Percent Auto 60.8 % (45.5-73.1); Platelet Count Result 288 k/mm3 (150-375); Red Blood Count 4.17 M/mm3 (4.2-5.4); Red Cell Distribution Width 15.4 % (11.5-14.5); White Blood Count 6.6 K/mm3 (4.5-10.0)
[2023-10-20 11:36] LABS: Partial Thromboplastin Time 27.4 Seconds (22.3-36.8); Prothrombin Time 13.5 Seconds (11.1-14.7)
[2023-10-20 11:37] LABS: Alanine Aminotransferase 12 U/L (6-35); Albumin Level 4.5 g/dL (3.5-5.1); Alkaline Phosphatase 58 U/L (38-126); Anion Gap 8 mmol/L (4-12); Aspartate Amino Transferase 23 U/L (14-36); Bilirubin,Total 0.4 mg/dL (0.2-1.3); Blood Urea Nitrogen 30 mg/dL (7-17); Calcium 9.5 mg/dL (8.4-10.2); Carbon Dioxide 24 mmol/L (22-30); Chloride 108 mmol/L (98-107); Estimated Glomerular Filt Rate 48; Glucose 86 mg/dL (65-110); Magnesium 2.3 mg/dL (1.6-2.3); Potassium 3.9 mmol/L (3.4-5.0); Sodium 140 mmol/L (137-145)
[2023-10-20 11:46] LABS: D Dimer 0.73 ug/mL (<0.48)
[2023-10-20 11:48] LABS: Troponin I < 0.012 ng/mL (0.000-0.034)
[2023-10-20 12:00] LABS: Influenza A QL RT-PCR Negative (Negative); Influenza B QL RT-PCR Negative (Negative); RSV RNA, RT-PCR Negative (Negative); SARS-CoV-2 RNA PCR Negative (Negative)
[2023-10-20 12:40] LABS: Appearance Urine Clear (Clear); Bilirubin Urine Negative (Negative); Blood Urine Negative (Negative); Color Urine Yellow (Yellow); Glucose Urine UA 3+ mg/dL (Negative); Ketones Urine Negative (Negative); Leukocyte Esterase Ur Negative LEU/UL (Negative); Nitrate Urine Negative (Negative); Protein Urine Negative (Negative); Urobilinogen Urine 0.2 mg/dL (<2.0); pH Urine 5.5 (5.0-9.0)
[2023-10-20] MEDS: SODIUM CHLORIDE 0.9% IV 500 ML 999 ML IV CONT (12:44)
[2023-10-20 12:45] LABS: Specific Grav Ur 1.041 (1.001-1.035)
[2023-10-20 12:46] LABS: Add Urine Microscopic? NO
--- NOTE | 2023-10-20 15:58 | ADMGEN ---
This patient, Thuy Chan, was admitted to Medical Room 251-01. Patient/family oriented to hospital policies and general routines including ID bracelet, bed and alarms, visiting hours, pain management, procedures, bathroom and other care routines, personal items, smoking policy, room service/diet, and visiting hours. Information on how to activate the Rapid Response Team has been discussed. Patient/Family are encouraged to report perceived risks to care and to ask questions if they do not understand what they are told or what they should do.
--- NOTE | 2023-10-20 16:23 | PM.IMHP ---
H&P: HPI History of Present Illness Date/Time: 10/20/23 17:00 Chief Complaint: Fall. Narrative: This is a pleasant 78-year-old female with combined systolic and diastolic congestive heart failure, nonischemic cardiomyopathy, hypertension, hyperlipidemia, mitral valve regurgitation, chronic kidney disease, gastroesophageal reflux disease, and colon cancer status post resection who presented to the emergency department after rapid response was called in the lobby following a fall. The patient provides the following history. For several weeks she has felt off balance and feels as though she is being pulled to the right while walking. This has caused her to have several falls and today she was at the hospital getting lab work drawn for an upcoming, routine doctor's appointment when she once again had a fall. There was no head trauma or loss of consciousness and luckily she has not sustained any injuries in these falls. She was brought to the ED for evaluation after that fall. With direct questioning she does report having mild aching discomfort in the right posterior neck however that has been ongoing for a couple of weeks as well. She has intermittent blurry vision her right eye though she has attributed that to her macular degeneration. She has also noticed that the right side of her body is perhaps slightly weaker when compared to the left with intermittent paresthesias, again ongoing for a couple of weeks. She denies syncope, near syncope, facial droop, difficulties speaking and swallowing. She also denies chest pain, palpitations, and sensations of racing heart. In the ED: She was afebrile on arrival with stable vital signs. Labs were significant for WBC count 6.6, hemoglobin 11.8, D-dimer 0.73, BUN 30, creatinine 1.10, troponin less than 0.012. She tested negative for influenza, RSV, and COVID. CTA of the head and neck showed old infarcts in the right cerebellum and left basal ganglia, and total occlusion of right posterior cerebral artery, 40% stenosis of proximal right internal carotid artery. Chest CTA showed no evidence of pulmonary embolism, aortic dissection, or aortic aneurysm. Lungs were clear. EKG showed sinus rhythm with left axis deviation and left bundle branch block. ED physician spoke with Dr. Prakash, the on-call neurologist, who recommends admitting the patient for further workup and starting aspirin and clopidogrel. Review of Systems Review of Systems: 12 systems were reviewed and are negative except for as per HPI. [facility] Past Medical History Medical History Anxiety Chronic diarrhea Chronic kidney disease, stage 3 Colon cancer Status post right hemicolectomy, completely excised. Combined systolic and diastolic heart failure Nonischemic Gastroesophageal reflux disease Hyperlipidemia Hypertension Idiopathic pancreatitis Irritable bowel syndrome with diarrhea Left bundle branch block Macular degeneration Mitral regurgitation Nonischemic cardiomyopathy Sphincter of Oddi dysfunction Tobacco use Surgical History Surgical History (Updated 10/20/23 @ 22:34 by Lala Valentin PA-C) History of bunionectomy History of cardiac catheterization (02/01/23) Right coronary dominant circulation with no angiographically significant coronary artery disease. Left ventricle was enlarged with severe cardiomyopathy and EF of 25 30%. History of cataract extraction with lens replacement History of cholecystectomy History of detached retina repair History of foot surgery History of hysterectomy History of right hemicolectomy (07/2023) Laparoscopic right hemicolectomy with ileocolic anastomosis, da Michael assisted per Dr. Goldberg. Family History Family History Sibling IBS (irritable bowel syndrome) Grandparent Colitis Mother Sphincter of Oddi dysfunction Daughter Sphincter of Oddi dysfunction Father HLD (hyperlipidemia) Hypertension Acute myocardial infarction O
[2023-10-20] MEDS: ACETAMINOPHEN 325 MG TABLET 650 MG PO (19:41)
[2023-10-20] MEDS: rOPINIRole HCL 0.5 MG TABLET PO (23:11)
[2023-10-20] MEDS: GABAPENTIN 300 MG CAPSULE PO (23:11)
[2023-10-20] MEDS: LORazepam (*CRX) 1 MG TABLET PO (23:11)
[2023-10-20] MEDS: SACUBITRIL/VALSARTAN 24-26 MG TABLET 0.5 TAB PO (23:11)
[2023-10-20] MEDS: PARoxetine 20 MG TABLET PO (23:12)
[2023-10-20] MEDS: bisoproloL fumarate 2.5 MG TABLET PO (23:12)
[2023-10-21] VITALS (16 sets, daily range): BP systolic 120–145; BP diastolic 56–72; PULSE 61–94; RESP 16–18; TEMP 35.6–36.9; O2SAT 96–99
--- NOTE | 2023-10-21 | ECHO_ITS ---
Patient Info Name: Thuy Chan Age: 78 years : 1945 Gender: Female Ht: 62 in Wt: 132 lbs BSA: 1.63 m2 HR: 78 bpm BP: 142 / 65 mmHg Heart Rhythm: Sinus Rhythm Technical Quality: Good Exam Date: 10/21/2023 8:25 AM Exam Location: Echo Lab Patient Status: Inpatient Admit Date: 10/20/2023 Staff Ordering Physician: Lala Valentin PA-C Internal Controls Specialist: Brendan Downey RDCS Attending Provider: Maribel Douglas MD Referring Physician: Homero HURLEY; Exam Type: CA echo doppler w bubble study Study Info Indications - htn - stroke Complete two-dimensional, color flow and Doppler transthoracic echocardiogram is performed with agitated saline. Contrast/Agitated Saline Contrast/Ag. Saline: Agitated Saline Amount: 10.00 ml Summary 1. Left ventricular chamber dimension is normal. 2. Left ventricular systolic function is moderately reduced, estimated at 30-35%. 3. There is mildly increased left ventricular wall thickness. 4. The left ventricular diastolic function is grade I diastolic dysfunction. 5. Right ventricular systolic function is normal. 6. Left atrial chamber dimension is mildly enlarged. 7. Intact interatrial septum visualized by color flow and agitated saline imaging. Negative bubble study. 8. There is mild mitral valve regurgitation. Left Ventricle Left ventricular chamber dimension is normal. Left ventricular systolic function is moderately reduced, estimated at 30-35%. There is mildly increased left ventricular wall thickness. The left ventricular diastolic function is grade I diastolic dysfunction. Right Ventricle Right ventricular chamber dimension is normal. Right ventricular systolic function is normal. Left Atria Left atrial chamber dimension is mildly enlarged. Right Atria Right atrial chamber dimension is normal. Atrial Septum Intact interatrial septum visualized by color flow and agitated saline imaging. Negative bubble study. Aortic Valve The aortic valve is not well visualized. There is no aortic valve regurgitation. Pulmonic Valve The pulmonic valve is not well visualized. Mitral Valve There is mild mitral valve regurgitation. The mitral valve annulus is mildly calcified. Tricuspid Valve There is trace tricuspid valve regurgitation. Pericardium/Pleural The pericardium appears epicardial fat pad. There is no pericardial effusion. Inferior Vena Cava Normal inferior vena cava with >50% collapse upon inspiration consistent with normal right atrial pressure, 3 mmHg. Aorta The aortic root size at the sinus of Valsalva is normal. Left Ventricular Outflow Tract Name Value Normal LVOT 2D LVOT Diameter 2.0 cm LVOT Doppler LVOT Peak Gradient 3 mmHg LVOT Mean Gradient 2 mmHg LVOT VTI 16 cm LVOT VTI/AV VTI Ratio 0.8 LVOT Stroke Volume 53 ml LVOT CO 3.3 l/min LVOT CI 2.1 l/min/m2 Pulmonic Valve Name
[2023-10-21 05:54] LABS: Anion Gap 7 mmol/L (4-12); Blood Urea Nitrogen 26 mg/dL (7-17); Carbon Dioxide 22 mmol/L (22-30); Chloride 109 mmol/L (98-107); Estimated CRCL calculation 31 ml/min; Estimated Glomerular Filt Rate 53; Glucose 91 mg/dL (65-110); Magnesium 2.3 mg/dL (1.6-2.3); Potassium 3.9 mmol/L (3.4-5.0); Sodium 138 mmol/L (137-145)
--- NOTE | 2023-10-21 07:20 | PM.IMPN ---
Progress Note: A&P Assessment and Plan (1) Neurological symptoms: Code(s): R29.90 - Unspecified symptoms and signs involving the nervous system Status: Acute Assessment and Plan: Weakness and paresthesia to right upper and lower extremities for the last couple weeks Neurology consulted, recs appreciated Started on aspirin and Plavix. Neurology recommends is for 3 weeks. Neuro checks q.[address] for any acute mental status change CTA of head and neck shows old evidence of strokes but no acute or subacute stroke. Right posterior cerebral artery was completely occluded. Brain MRI ordered and pending Echo with bubble ordered Hemoglobin A1c, TSH, and lipid panel ordered (2) Recurrent falls: Code(s): R29.6 - Repeated falls Status: Acute Assessment and Plan: Recurrent falls with intermittent weakness and paresthesia in the right upper and lower extremities PT OT consulted recs appreciated Fall precautions (3) Occlusion of posterior cerebral artery: Code(s): I66.29 - Occlusion and stenosis of unspecified posterior cerebral artery Status: Acute Assessment and Plan: see 1 (4) Nonischemic cardiomyopathy: Code(s): I42.8 - Other cardiomyopathies Status: Acute Assessment and Plan: Bisoprolol, spironolactone, jardiance, and Entresto restarted Echo pending (5) Hypertension: Qualifiers: Hypertension type: essential hypertension Qualified Code(s): I10 - Essential (primary) hypertension Code(s): I10 - Essential (primary) hypertension Status: Chronic Assessment and Plan: Blood pressures reviewed to 130s to 170s/60-70 Home medications reviewed (6) Stage 3b chronic kidney disease: Code(s): N18.32 - Chronic kidney disease, stage 3b Status: Acute Assessment and Plan: Cr 1.10 Cr 1.00 today jaridance continues (7) Hyperlipidemia: Qualifiers: Hyperlipidemia type: mixed hyperlipidemia Qualified Code(s): E78.2 - Mixed hyperlipidemia Code(s): E78.5 - Hyperlipidemia, unspecified Status: Chronic Assessment and Plan: Lipid panel pending rosuvastatin 40 mg restarted Plan Feeding: heart healthy diet Analgesia: tylenol Thromboembolic prophylaxis: DAPT, SCD Ulcer prophylaxis: PPI Glycemic control: na Bowel regimen: miralax prn Lines: PIV Antibiotics: na Disposition: home after work up Subjective Date/time seen: 10/21/23 07:20 Interval history: This is a pleasant 78-year-old female with combined systolic and diastolic congestive heart failure, nonischemic cardiomyopathy, hypertension, hyperlipidemia, mitral valve regurgitation, chronic kidney disease, gastroesophageal reflux disease, and colon cancer status post resection who presented to the emergency department after rapid response was called in the lobby following a fall.? 10/21/23: Patient is seen having lunch with her daughter at bedside. She states she is not doing very well today given her current hospitalization and stroke diagnosis. Earlier this morning when she was working with therapy she had increased right-sided weakness with expressive aphasia, and facial droop. Nursing contacted me with concerns. Stat CT non-con was completed with no acute findings. Brain MRI was also done and did show a new infarct as well as an old infarct. Speech therapy has been ordered. Patient also to work with PT and OT. Patient is pending workup for ÁLVARO. Review of Systems Review of Systems: 12 systems were reviewed and are negative except for as per HPI. Exam Narrative: General: well appearing, appears stated age. HEENT: normocephalic, atraumatic. Mucous membranes moist. EOMI, PERRLA, bilateral sclera anicteric, no conjunctival injection. Neck supple without JVD, lymphadenopathy, or bruit. Respiratory: clear to auscultation bilaterally. No rales/rhonic/wheezes. Cardiovascular: Regular rate an
[2023-10-21 08:17] LABS: Cholesterol 121 mg/dL (0-200); HDL Direct 46 mg/dL; Triglycerides 141 mg/dL (<150)
[2023-10-21 08:28] LABS: LDL Cholesterol Direct 50 mg/dL
[2023-10-21 08:36] LABS: Hemoglobin A1C 5.1 % (<5.7)
[2023-10-21] MEDS: EMPAGLIFLOZIN 10 MG TABLET PO (08:58)
[2023-10-21] MEDS: LIPASE/AMYLASE/PROTEASE 12,000 UNITS CAP 2 CAP PO ×3 (08:58→16:50)
[2023-10-21] MEDS: CYANOCOBALAMIN 1,000 MCG TABLET 1000 MCG PO (08:58)
[2023-10-21] MEDS: PANTOPRAZOLE 40 MG TABLET PO (08:58)
[2023-10-21] MEDS: CLOPIDOGREL BISULFATE 75 MG TABLET PO (08:59)
[2023-10-21] MEDS: SACUBITRIL/VALSARTAN 24-26 MG TABLET 0.5 TAB PO ×2 (08:59→20:09)
[2023-10-21] MEDS: FERROUS SULFATE 325 MG TABLET DR BY MOUTH (09:00)
[2023-10-21] MEDS: ASPIRIN 81 MG ENTERIC TABLET PO (09:00)
[2023-10-21] MEDS: ROSUVASTATIN 20 MG TABLET 40 MG PO (09:00)
[2023-10-21] MEDS: ASCORBIC ACID 500 MG TABLET 1000 MG PO (11:04)
--- NOTE | 2023-10-21 12:39 | WPDNEURCNPN ---
Assessment and Plan Assessment and plan (1) Stage 3b chronic kidney disease: Code(s): N18.32 - Chronic kidney disease, stage 3b Status: Acute (2) Cancer of ascending colon: Code(s): C18.2 - Malignant neoplasm of ascending colon Status: Chronic (3) CHF (congestive heart failure): Code(s): I50.9 - Heart failure, unspecified Status: Chronic (4) Acute ischemic left MCA stroke: Code(s): I63.512 - Cerebral infarction due to unspecified occlusion or stenosis of left middle cerebral artery Status: Acute Plan MRI of the brain that shows infarct in the genu of the left internal capsule. and old infarct was noted in the right cerebellar region. In addition some chronic ischemic changes also noted. CT angiogram of the head and neck shows some degree of intracranial disease not uncommon for her age group. There is a complete occlusion of the right posterior cerebral artery and around 40% narrowing of the Right internal carotid artery. echocardiogram has been done and the results are to follow. Her CBC and chemistry profile liver profile did not show any significant new findings. There is evidence of mild chronic renal failure. She is already on receive I statin 40 mg a day and Plavix and aspirin and the should be continued. She should participate in physical therapy and rehab. Her daughter was present the time of evaluation I spoke to her. She had mild weakness at this time however at times of progress and can occur in the 1st week. I shall be glad to follow her. Thank you very much Consult date: 10/21/23 HPI: Thuy Chan is a 78 year old female With complaints of weakness in the right side of the body that started today. MRI of the brain was performed today that showed the infarct in the left basal ganglia region. Patient using a walker now. Daughter was present the time of evaluation. She has been through a lot of medical problems including congestive cardiac failure chronic kidney disease. There is also past history of carcinoma of colon. See feels that she is being told to the right side when she is trying to walk. No other new symptoms reported. Review of Systems Review of Systems: All systems reviewed & are unremarkable except as noted in HPI and below PMFSH Past Medical History Medical History Acute ischemic left MCA stroke Acute left JAKE ischemic stroke Anxiety Chronic diarrhea Chronic kidney disease, stage 3 Colon cancer Status post right hemicolectomy, completely excised. Combined systolic and diastolic heart failure Nonischemic Gastroesophageal reflux disease Hyperlipidemia Hypertension Idiopathic pancreatitis Irritable bowel syndrome with diarrhea Left bundle branch block Macular degeneration Mitral regurgitation Nonischemic cardiomyopathy Sphincter of Oddi dysfunction Tobacco use Surgical History Surgical History History of bunionectomy History of cardiac catheterization (02/01/23) Right coronary dominant circulation with no angiographically significant coronary artery disease. Left ventricle was enlarged with severe cardiomyopathy and EF of 25 30%. History of cataract extraction with lens replacement History of cholecystectomy History of detached retina repair History of foot surgery History of hysterectomy History of right hemicolectomy (07/2023) Laparoscopic right hemicolectomy with ileocolic anastomosis, da Michael assisted per Dr. Goldberg. Family History Family History Sibling IBS (irritable bowel syndrome) Grandparent Colitis Mother Sphincter of Oddi dysfunction Daughter Sphincter of Oddi dysfunction Father HLD (hyperlipidemia) Hypertension Acute myocardial infarction Other Carcinoma of colon Social History Social History Social History: Surrogate medical decisio
--- NOTE | 2023-10-21 14:51 | PCSTNOTE ---
Addendum entered by CRISTIANA Alvarez 10/21/23 14:54: Continue ST to focus on improving verbal expression and higher level auditory comprehension Original Note: Please refer to the Bedside Swallow & Communication Evaluations in the EMR. Please note, silent aspiration cannot be ruled out at bedside. Pt was seen for a bedside swallow evaluation and a communication evaluation: Bedside Swallow Evaluation: The above pleasant and cooperative pt was seen for a swallow evaluation & positioned upright in the bed. She was alert & able to follow commands. She is currently on a heart health level 7 diet with regular liquids and denies dysphagia. Oral mucosa is normal; natural dentition is in good condition; Oral peripheral exam revealed mild right sided labial weakness. She was able to protrude and retract lips and was able to maintain a tight labial seal. Diadochokinetic rate for labial function (pa) was slow. Lingual ROM and strength appeared within functional limits but again diadochokinetic rates for ta and ka were slow. She was able to dry swallow on command and exhibited a strong cough and clear vocal quality. She was tested with pudding, applesauce, cracker and thin liquids in controlled and uncontrolled amounts. The oral stages appeared WNL. No oral leakage or pocketing was noted. During the pharyngeal stage, swallow reflex appeared prompt & laryngeal elevation adequate. No overt s/s of aspiration were exhibited; however, silent aspiration cannot be ruled out at bedside. General impression is normal swallow ability. Recommendation: Continue current diet. Communication Evaluation: Overall the pt presents with mild receptive & expressive impairment characteristic of aphasia. Pt demonstrated ability to answer complex yes/no questions & followed commands to the complex level where breakdown occurred at 80% accuracy. She demonstrated ability to read up to the complex sentence level. Paragraphs and functional reading were not tested at this time. Verbal expression overall is characterized by mild word retrieval/word finding impairment. She is able to repeat sentences, produce accurate and appropriate responses to /wh/ questions, and produce sentences given a word. Only minimal impairment was exhibited during picture description as well as in naming items in a category. Writing was not tested as pt exhibits right hand dominant weakness. Continue ST to focus on improving verbal expression.
[2023-10-21] MEDS: GABAPENTIN 300 MG CAPSULE PO (20:09)
[2023-10-21] MEDS: PARoxetine 20 MG TABLET PO (20:09)
[2023-10-21] MEDS: LORazepam (*CRX) 1 MG TABLET PO (20:09)
[2023-10-21] MEDS: bisoproloL fumarate 2.5 MG TABLET PO (20:09)
[2023-10-21] MEDS: rOPINIRole HCL 0.5 MG TABLET PO (20:09)
[2023-10-22] VITALS (8 sets, daily range): BP systolic 107–147; BP diastolic 51–64; PULSE 63–102; RESP 16; TEMP 36.4–36.7; O2SAT 97–98
[2023-10-22 05:24] LABS: Hematocrit 36.7 % (37.0-47.0); Hemoglobin 11.5 g/dL (12.0-15.0); Mean Corpuscular HGB Conc 31.3 g/dl (32-36); Mean Corpuscular Hemoglobin 28.3 pg (26-34); Mean Corpuscular Volume 90.2 fl (80-100); Mean Platelet Volume 10.8 fl (7.4-10.4); Platelet Count Result 241 k/mm3 (150-375); Red Blood Count 4.07 M/mm3 (4.2-5.4); White Blood Count 5.8 K/mm3 (4.5-10.0)
[2023-10-22 05:43] LABS: Alanine Aminotransferase 13 U/L (6-35); Albumin Level 3.9 g/dL (3.5-5.1); Alkaline Phosphatase 57 U/L (38-126); Anion Gap 6 mmol/L (4-12); Aspartate Amino Transferase 20 U/L (14-36); Bilirubin,Total 0.5 mg/dL (0.2-1.3); Blood Urea Nitrogen 22 mg/dL (7-17); Carbon Dioxide 23 mmol/L (22-30); Chloride 108 mmol/L (98-107); Estimated CRCL calculation 35 ml/min; Estimated Glomerular Filt Rate 60; Glucose 94 mg/dL (65-110); Potassium 3.7 mmol/L (3.4-5.0); Sodium 137 mmol/L (137-145)
--- NOTE | 2023-10-22 07:02 | P.PNIM_ITS ---
Progress Note: A&P Assessment and Plan (1) Neurological symptoms: Code(s): R29.90 - Unspecified symptoms and signs involving the nervous system Status: Acute Assessment and Plan: Weakness and paresthesia to right upper and lower extremities for the last couple weeks * Neurology consulted, recs appreciated * Started on aspirin and Plavix. Neurology recommends is for 3 weeks. * Neuro checks q.4 hours * Stat head CT for any acute mental status change * CTA of head and neck shows old evidence of strokes but no acute or subacute stroke. Right posterior cerebral artery was completely occluded. * Brain MRI ordered and pending * Echo with bubble ordered * Hemoglobin A1c, TSH, and lipid panel ordered 10/21: * on asa, plavix and crestor * ECHO negative bubble study. She does have LV EF estimated at 30-35% with grade 1 diastolic dysfunction. EF is actually improved compared to ECHO from 12/2022 * lipid panel reviewed * TSH elevated at 7.100--T3, T4 pending * PT/OT/ST to continue * Patient is a good candidate for acute rehab (2) Recurrent falls: Code(s): R29.6 - Repeated falls Status: Acute Assessment and Plan: Recurrent falls with intermittent weakness and paresthesia in the right upper and lower extremities * PT OT consulted recs appreciated * Fall precautions (3) Occlusion of posterior cerebral artery: Code(s): I66.29 - Occlusion and stenosis of unspecified posterior cerebral artery Status: Acute Assessment and Plan: see 1 (4) Nonischemic cardiomyopathy: Code(s): I42.8 - Other cardiomyopathies Status: Acute Assessment and Plan: Bisoprolol, spironolactone, jardiance, and Entresto restarted * Echo pending (5) Hypertension: Qualifiers: Hypertension type: essential hypertension Qualified Code(s): I10 - Essential (primary) hypertension Code(s): I10 - Essential (primary) hypertension Status: Chronic Assessment and Plan: Blood pressures reviewed to 130s to 170s/60-70 * Home medications reviewed (6) Stage 3b chronic kidney disease: Code(s): N18.32 - Chronic kidney disease, stage 3b Status: Acute Assessment and Plan: Cr 1.10 * Cr 1.00 today * jaridance continues (7) Hyperlipidemia: Qualifiers: Hyperlipidemia type: mixed hyperlipidemia Qualified Code(s): E78.2 - Mixed hyperlipidemia Code(s): E78.5 - Hyperlipidemia, unspecified Status: Chronic Assessment and Plan: Lipid panel pending * rosuvastatin 40 mg restarted Plan Feeding: heart healthy diet Analgesia: tylenol Thromboembolic prophylaxis: DAPT, SCD Ulcer prophylaxis: PPI Glycemic control: na Bowel regimen: miralax prn Lines: PIV Antibiotics: na Disposition: pending ÁLVARO? Subjective Date/time seen: 10/22/23 07:02 Interval history: This is a pleasant 78-year-old female with combined systolic and diastolic congestive heart failure, nonischemic cardiomyopathy, hypertension, hyperlipidemia, mitral valve regurgitation, chronic kidney disease, gastroesophageal reflux disease, and colon cancer status post resection who presented to the emergency department after rapid response was called in the lobby following a fall.? 10/21/23: Patient is seen having lunch with her daughter at bedside. She states she is not doing very well today given her current hospitalization and stroke diagnosis. Earlier this morning when she was working with therapy she had increased right-sided weakness with expressive aphas
--- NOTE | 2023-10-22 07:02 | PM.IMPN ---
Progress Note: A&P Assessment and Plan (1) Neurological symptoms: Code(s): R29.90 - Unspecified symptoms and signs involving the nervous system Status: Acute Assessment and Plan: Weakness and paresthesia to right upper and lower extremities for the last couple weeks Neurology consulted, recs appreciated Started on aspirin and Plavix. Neurology recommends is for 3 weeks. Neuro checks q.[address] for any acute mental status change CTA of head and neck shows old evidence of strokes but no acute or subacute stroke. Right posterior cerebral artery was completely occluded. Brain MRI ordered and pending Echo with bubble ordered Hemoglobin A1c, TSH, and lipid panel ordered 10/21: on asa, plavix and crestor ECHO negative bubble study. She does have LV EF estimated at 30-35% with grade 1 diastolic dysfunction. EF is actually improved compared to ECHO from 12/2022 lipid panel reviewed TSH elevated at 7.100--T3, T4 pending PT/OT/ST to continue Patient is a good candidate for acute rehab (2) Recurrent falls: Code(s): R29.6 - Repeated falls Status: Acute Assessment and Plan: Recurrent falls with intermittent weakness and paresthesia in the right upper and lower extremities PT OT consulted recs appreciated Fall precautions (3) Occlusion of posterior cerebral artery: Code(s): I66.29 - Occlusion and stenosis of unspecified posterior cerebral artery Status: Acute Assessment and Plan: see 1 (4) Nonischemic cardiomyopathy: Code(s): I42.8 - Other cardiomyopathies Status: Acute Assessment and Plan: Bisoprolol, spironolactone, jardiance, and Entresto restarted Echo pending (5) Hypertension: Qualifiers: Hypertension type: essential hypertension Qualified Code(s): I10 - Essential (primary) hypertension Code(s): I10 - Essential (primary) hypertension Status: Chronic Assessment and Plan: Blood pressures reviewed to 130s to 170s/60-70 Home medications reviewed (6) Stage 3b chronic kidney disease: Code(s): N18.32 - Chronic kidney disease, stage 3b Status: Acute Assessment and Plan: Cr 1.10 Cr 1.00 today jaridance continues (7) Hyperlipidemia: Qualifiers: Hyperlipidemia type: mixed hyperlipidemia Qualified Code(s): E78.2 - Mixed hyperlipidemia Code(s): E78.5 - Hyperlipidemia, unspecified Status: Chronic Assessment and Plan: Lipid panel pending rosuvastatin 40 mg restarted Plan Feeding: heart healthy diet Analgesia: tylenol Thromboembolic prophylaxis: DAPT, SCD Ulcer prophylaxis: PPI Glycemic control: na Bowel regimen: miralax prn Lines: PIV Antibiotics: na Disposition: pending ÁLVARO? Subjective Date/time seen: 10/22/23 07:02 Interval history: This is a pleasant 78-year-old female with combined systolic and diastolic congestive heart failure, nonischemic cardiomyopathy, hypertension, hyperlipidemia, mitral valve regurgitation, chronic kidney disease, gastroesophageal reflux disease, and colon cancer status post resection who presented to the emergency department after rapid response was called in the lobby following a fall.? 10/21/23: Patient is seen having lunch with her daughter at bedside. She states she is not doing very well today given her current hospitalization and stroke diagnosis. Earlier this morning when she was working with therapy she had increased right-sided weakness with expressive aphasia, and facial droop. Nursing contacted me with concerns. Stat CT non-con was completed with no acute findings. Brain MRI was also done and did show a new infarct as well as an old infarct. Speech therapy has been ordered. Patient also to work with PT and OT. Patient is pending workup for ÁLVARO. Review of Systems Review of Systems: 12 systems were reviewed and are negative except for as per HPI. Exam Narrative: Fitfully
[2023-10-22] MEDS: ASCORBIC ACID 500 MG TABLET 1000 MG PO (09:37)
[2023-10-22] MEDS: CYANOCOBALAMIN 1,000 MCG TABLET 1000 MCG PO (09:37)
[2023-10-22] MEDS: PANTOPRAZOLE 40 MG TABLET PO (09:37)
[2023-10-22] MEDS: EMPAGLIFLOZIN 10 MG TABLET PO (09:37)
[2023-10-22] MEDS: SACUBITRIL/VALSARTAN 24-26 MG TABLET 0.5 TAB PO (09:37)
[2023-10-22] MEDS: CLOPIDOGREL BISULFATE 75 MG TABLET PO (09:37)
[2023-10-22] MEDS: ASPIRIN 81 MG ENTERIC TABLET PO (09:37)
[2023-10-22] MEDS: ROSUVASTATIN 20 MG TABLET 40 MG PO (09:37)
[2023-10-22] MEDS: FERROUS SULFATE 325 MG TABLET DR BY MOUTH (09:37)
[2023-10-22] MEDS: LIPASE/AMYLASE/PROTEASE 12,000 UNITS CAP 2 CAP PO ×2 (09:38→12:06)
--- NOTE | 2023-10-22 10:54 | PCSTNOTE ---
The patient treatment was not able to be completed on 10/21 10:45 due to patient refusal, stating she did not feel well. Will plan to continue treatment per plan of care; will try again later this morning or today. Will encourage participation over the weekend.
--- NOTE | 2023-10-22 11:17 | PC.NURSE ---
RN from [facility] called with pt's urine culture and sensitivity results from their ED. Pt previously on doxycycline x1 day. Lab results placed in chart.
--- NOTE | 2023-10-22 12:13 | PM.DS ---
DS: Admitting Diagnosis Discharge Date 10/21 Admitting Diagnosis weakness, falls DS: Discharge Diagnosis Discharge Diagnosis (1) Neurological symptoms: Code(s): R29.90 - Unspecified symptoms and signs involving the nervous system Status: Acute (2) Recurrent falls: Code(s): R29.6 - Repeated falls Status: Acute (3) Occlusion of posterior cerebral artery: Code(s): I66.29 - Occlusion and stenosis of unspecified posterior cerebral artery Status: Acute (4) Nonischemic cardiomyopathy: Code(s): I42.8 - Other cardiomyopathies Status: Acute (5) Hypertension: Qualifiers: Hypertension type: essential hypertension Qualified Code(s): I10 - Essential (primary) hypertension Code(s): I10 - Essential (primary) hypertension Status: Chronic (6) Stage 3b chronic kidney disease: Code(s): N18.32 - Chronic kidney disease, stage 3b Status: Acute (7) Hyperlipidemia: Qualifiers: Hyperlipidemia type: mixed hyperlipidemia Qualified Code(s): E78.2 - Mixed hyperlipidemia Code(s): E78.5 - Hyperlipidemia, unspecified Status: Chronic Plan Assessment and Plan (1) Neurological symptoms: ?Code(s): R29.90 - Unspecified symptoms and signs involving the nervous system ?Status:?Acute ?Assessment and Plan: Weakness and paresthesia to right upper and lower extremities for the last couple weeks Neurology consulted, recs appreciated Started on aspirin and Plavix.? Neurology recommends is for 3 weeks. Neuro checks q.[address] for any acute mental status change CTA of head and neck shows old evidence of strokes but no acute or subacute stroke.? Right posterior cerebral artery was completely occluded. Brain MRI ordered and pending Echo with bubble ordered Hemoglobin A1c, TSH, and lipid panel ordered(2) Recurrent falls: ?Code(s): R29.6 - Repeated falls ?Status:?Acute ?Assessment and Plan: Recurrent falls with intermittent weakness and paresthesia in the right upper and lower extremities PT OT consulted recs appreciated Fall precautions(3) Occlusion of posterior cerebral artery: ?Code(s): I66.29 - Occlusion and stenosis of unspecified posterior cerebral artery ?Status:?Acute ?Assessment and Plan: see 1 (4) Nonischemic cardiomyopathy: ?Code(s): I42.8 - Other cardiomyopathies ?Status:?Acute ?Assessment and Plan: Bisoprolol, spironolactone, jardiance, and Entresto restarted Echo pending(5) Hypertension: ?Qualifiers: ?Hypertension type:?essential hypertension? Qualified Code(s):?I10 - Essential (primary) hypertension ?Code(s): I10 - Essential (primary) hypertension ?Status:?Chronic ?Assessment and Plan: Blood pressures reviewed to 130s to 170s/60-70 Home medications reviewed(6) Stage 3b chronic kidney disease: ?Code(s): N18.32 - Chronic kidney disease, stage 3b ?Status:?Acute ?Assessment and Plan: Cr 1.10 Cr 1.00 today jaridance continues(7) Hyperlipidemia: ?Qualifiers: ?Hyperlipidemia type:?mixed hyperlipidemia? Qualified Code(s):?E78.2 - Mixed hyperlipidemia ?Code(s): E78.5 - Hyperlipidemia, unspecified ?Status:?Chronic ?Assessment and Plan: Lipid panel pending rosuvastatin 40 mg restarted Plan Feeding: heart healthy diet Analgesia: tylenol Thromboembolic prophylaxis: DAPT, SCD Ulcer prophylaxis: PPI Glycemic control: na Bowel regimen: miralax prn Lines: PIV Antibiotics: na? Disposition: home after work up DS: Summary Hospital Course Reason for hospitalization: Acute stroke Hospital Course: This is a pleasant 78-year-old female with combined systolic and diastolic congestive heart failure, nonischemic cardiomyopathy, hypertension, hyperlipidemia, mitral valve regurgitation, chronic kidney disease, gastroesophageal reflux disease, and colon cancer status post resection who presented to
--- NOTE | 2023-10-22 12:50 | WPDNEUROPN ---
Progress Note: A&P Assessment and Plan (1) Acute ischemic left MCA stroke: Code(s): I63.512 - Cerebral infarction due to unspecified occlusion or stenosis of left middle cerebral artery Status: Acute Plan I agree with keeping her on dual antiplatelets and statin for now and a continue to participate in rehab. She is planned to be referred to a rehab place for further treatment and I agree with the same. I spoke to the hospitalist in charge and a offered that I shall be glad to see her in my office if necessity. Subjective Date/time seen: 10/22/23 12:50 Interval history: The patient 78 years old with new onset left cerebral hemispheric stroke with mild weakness in the right upper and lower limb and difficulty in walking. That not been any significant change since I saw her last. Her family members and particularly her daughter were present and we discussed about future planning for her. She is on dual antiplatelets and atorvastatin and so far tolerating the medication very well. She is also participating physical therapy and the plan to send her to rehab. Review of Systems Review of Systems: All systems reviewed & are unremarkable except as noted in HPI and below Exam Narrative: Fully conscious alert oriented to self time place and person. Mild dysarthria. No aphasia. Cranial nerves an annual testing did not show any significant deficit. Motor system normal power in left upper and lower limb however loss of rapid alternative movement of the right upper and lower limb for the fingers and the toes was noted. Proximal muscles appear fair. No additional findings noted. Objective Data Vital Signs Vital Signs: Vital Signs - 24 hr 10/21/23 15:03 10/21/23 16:00 10/21/23 14:31 Temperature 36.1 C L Pulse Rate 71 64 Respiratory Rate 16 Blood Pressure 134/61 Pulse Oximetry 98 Oxygen Delivery Room Air 10/21/23 14:35 10/21/23 14:38 10/21/23 20:09 Temperature Pulse Rate 85 94 74 Respiratory Rate Blood Pressure 120/56 L 123/62 Pulse Oximetry 98 99 Oxygen Delivery 10/21/23 20:10 10/21/23 20:45 10/21/23 20:54 Temperature 36.9 C 36.9 C Pulse Rate 71 71 Respiratory Rate 17 17 Blood Pressure 145/67 H 145/67 H Pulse Oximetry 98 98 Oxygen Delivery Room Air 10/21/23 20:43 10/21/23 20:45 10/21/23 20:03 Temperature 36.9 C 36.9 C Pulse Rate 91 93 92 Respiratory Rate 18 18 Blood Pressure 123/72 130/67 Pulse Oximetry 98 98 Oxygen Delivery 10/22/23 00:01 10/22/23 04:00 10/22/23 05:12 Temperature 36.7 C Pulse Rate 63 70 69 Respiratory Rate 16 Blood Pressure 147/51 H Pulse Oximetry 97 Oxygen Delivery 10/22/23 08:00 Temperature Pulse Rate 99 Respiratory Rate Blood Pressure Pulse Oximetry Oxygen Delivery Intake/Output Intake/Output: Intake & Output 10/19/23 10/20/23 10/21/23 10/22/23 23:59 23:59 23:59 23:59 Intake Total 740 1520 480 Output Total 1 Balance 740 1519 480 Meds/Results Medications: Active Medications Generic Name Dose Route Start Last Admin Trade Name Freq PRN Reason Stop Dose Admin Acetaminophen 650 mg 10/20/23 22:32 Acetaminophen 325 Mg Tablet PO Q6H PRN Mild Pain (1-3) or Fever Lipase/Protease/Amylase 2 cap 10/21/23 08:00 10/22/23 12:06 Lipase/Amylase/Protease 12,000 Units Cap PO 2 cap TIDWM DURGA Administration Ascorbic Acid 1,000 mg 10/21/23 09:00 10/22/23 09:37 Ascorbic Acid 500 Mg Tablet PO 1,000 mg QAM DURGA Administration Aspirin 81 mg 10/21/23 09:00 10/22/23 09:37 Aspirin 81 Mg Enteric Tablet PO 81 mg QAM [facility] Administration Bisoprolol Fumarate 2.5 mg 10/20/23 22:55 10/21/23 20:09 Bisoprolol Fumarate 2.5 Mg Tablet PO 2.5 mg HS DURGA Administration Clopidogrel Bisulfate 75 mg 10/21/23 09:00 10/22/23 09:37 Clopidogrel Bisulfate 75 Mg Tablet PO 75 mg QAM DURGA Administration Cyanocobalamin 1,000 mcg 10/21/23 09
[2023-10-22 13:47] LABS: Free T4 Free Thyroxine 0.76 ng/mL (0.78-2.19)
--- NOTE | 2023-10-22 15:53 | PC.NURSE ---
Pt leaving via wheelchair to private vehicle accompanied by daughters and PCT. Went over discharge information with pt and daughters. All questions answered. IV and telemetry removed. All belongings sent with pt.
[2023-10-25 19:21] LABS: T3 Free 2.7
== END 2023-10-22 15:53 | DRG 65 ==
LOC: ANHED 11:39 → ANH2MED 14:40
PROVIDERS: Physician Assistant; Admitting Provider General Practice; Emergency Provider Student in an Organized Health Care Education/Training Program; PCP Family Medicine; Visit Provider Nurse Practitioner Acute Care
DX: I63.512 Cerebral infarction due to unspecified occlusion or stenosis of left middle cerebral artery (principal); G81.91 Hemiplegia, unspecified affecting right dominant side; I13.0 Hypertensive heart and chronic kidney disease with heart failure and stage 1 through stage 4 chronic kidney disease, or unspecified chronic kidney disease; I50.42 Chronic combined systolic (congestive) and diastolic (congestive) heart failure; I42.8 Other cardiomyopathies; R47.01 Aphasia; I65.21 Occlusion and stenosis of right carotid artery; I66.21 Occlusion and stenosis of right posterior cerebral artery; N18.32 Chronic kidney disease, stage 3b; I34.0 Nonrheumatic mitral (valve) insufficiency; K21.9 Gastro-esophageal reflux disease without esophagitis; E78.5 Hyperlipidemia, unspecified; K58.0 Irritable bowel syndrome with diarrhea; H35.30 Unspecified macular degeneration; R29.6 Repeated falls; F41.9 Anxiety disorder, unspecified; Z20.822 Contact with and (suspected) exposure to COVID-19; Z87.891 Personal history of nicotine dependence; Z85.038 Personal history of other malignant neoplasm of large intestine
CPT/HCPCS: 36415; 70450; 70496; 70498; 70553; 71045; 71275; 80048; 80053; 80061; 81003; 83036; 83735; 84439; 84443; 84480; 84484; 85025; 85027; 85380; 85610; 85730; 87637; 92507; 92523; 92610; 93005; 93306; 96360; 96375; 97162; 97166; 97535; 99285; A9270; A9577; G0378; J7040; Q9967

== ENCOUNTER 2023-12-06 06:15 | Emergency (ER) | payer MEDICARE, SELFPAY ==
--- NOTE | ~2023-12-06 | XR_ITS ---
AP and lateral views of the right hip Clinical history: Pain Findings: No acute fracture or dislocation is seen. Osseous alignment is anatomic. There is minimal d egenerative change of the right hip joint. Soft tissues are unremarkable. Impression: No acute abnormality. Minimal degenerative change of the right hip joint. Reviewed, dictated and finalized at location . Impression: No acute abnormality. Minimal degenerative change of the right hip joint.
[2023-12-06 06:16] VITALS: BP 137/120; PULSE 78; RESP 29; TEMP 37; O2SAT 92
[2023-12-06 07:08] VITALS: BP 97/57; PULSE 72; RESP 16; O2SAT 100
--- NOTE | 2023-12-06 07:24 | ED.GENADULT ---
HPI - General Adult General Chief complaint: Fall Stated complaint: fall covid + Time Seen by Provider: 12/06/23 07:01 History of Present Illness HPI narrative: Patient is an 78-year-old female who presents ER with right-sided hip pain. Patient had a fall yesterday on the sharp. Patient is COVID positive for last week. Reports normal oral intake. She is also reporting however that she has burning urination and she is getting dizzy when she stands up. No chest pain or chest pressure. No difficulty breathing. No cough. Related Data Home Medications Medication Instructions Recorded Confirmed omeprazole magnesium 20 mg 20 mg PO DAILY 05/09/19 11/08/23 tablet,delayed release (Prilosec OTC) sacubitril 24 mg-valsartan 26 mg 0.5 tablet PO Q12HR 01/29/23 11/08/23 tablet (Entresto) acetaminophen 500 mg capsule 500 mg PO Q6H PRN Pain 08/11/23 11/08/23 ascorbic acid (vitamin C) 1,000 mg 1 g PO DAILY 08/11/23 11/08/23 capsule cyanocobalamin (vitamin B-12) 1,000 mcg PO DAILY 08/11/23 11/08/23 1,000 mcg tablet ferrous sulfate 325 mg (65 mg 325 mg PO DAILY 08/11/23 11/08/23 iron) tablet spironolactone 25 mg tablet 25 mg PO DAILY PRN Hypertension 10/22/23 11/08/23 Allergies Allergy/AdvReac Type Severity Reaction Status Date / Time oxycodone AdvReac Intermediate Hallucinati Verified 11/08/23 13:32 ng codeine AdvReac Unknown Vomiting Verified 11/08/23 13:32 hydrocodone AdvReac Hallucinati Verified 11/08/23 13:32 ng morphine AdvReac Nausea Verified 11/08/23 13:32 Review of Systems Review of Systems: All systems reviewed & are unremarkable except as noted in HPI and below Constitutional: Constitutional: Reports fatigue, Denies fever(s) and Reports weakness ENT: Reports system reviewed and no additional complaints, except as documented Cardiovascular: Cardiovascular: Reports no additional cardiovascular complaints Respiratory: Respiratory: Reports no additional respiratory complaints Gastrointestinal: Gastrointestinal: Reports no additional gastrointestinal complaints Genitourinary: Genitourinary: Reports nocturia, Reports dysuria and Denies flank pain PMFSH Past Medical History Medical History Acute ischemic left MCA stroke Acute left JAKE ischemic stroke Anxiety Chronic diarrhea Chronic kidney disease, stage 3 Colon cancer Status post right hemicolectomy, completely excised. Combined systolic and diastolic heart failure Nonischemic Gastroesophageal reflux disease Hyperlipidemia Hypertension Idiopathic pancreatitis Irritable bowel syndrome with diarrhea Left bundle branch block Macular degeneration Mitral regurgitation Nonischemic cardiomyopathy Sphincter of Oddi dysfunction Tobacco use Surgical History Surgical History History of bunionectomy History of cardiac catheterization (02/01/23) Right coronary dominant circulation with no angiographically significant coronary artery disease. Left ventricle was enlarged with severe cardiomyopathy and EF of 25 30%. History of cataract extraction with lens replacement History of cholecystectomy History of detached retina repair History of foot surgery History of hysterectomy History of right hemicolectomy (07/2023) Laparoscopic right hemicolectomy with ileocolic anastomosis, da Michael assisted per Dr. Goldberg. Family History Family History Sibling IBS (irritable bowel syndrome) Grandparent Colitis Mother Sphincter of Oddi dysfunction Daughter Sphincter of Oddi dysfunction Father HLD (hyperlipidemia) Hypertension Acute myocardial infarction Other Carcinoma of colon Social History Social History Social History: Surrogate medical decision maker: Lacy Dugan, daughter. Code status: Full code. Smoking packs per day: 0.5 Sm
[2023-12-06 07:50] LABS: Basophils Percent Auto 0.8 % (0.2-1.2); Eosinophils Absolute Auto 0.1 K/mm3 (0-0.3); Eosinophils Percent Auto 2.2 % (0-4.4); Hematocrit 33.5 % (37.0-47.0); Hemoglobin 10.6 g/dL (12.0-15.0); Immature Granulocyte Absolute 0.08 K/mm3 (0.00-0.031); Immature Granulocyte Percent A 2.2 % (0-0.5); Lymphocytes Absolute Auto 1.01 K/mm3 (0.9-3.2); Lymphocytes Percent Auto 27.6 % (18.3-44.2); Mean Corpuscular HGB Conc 31.6 g/dl (32-36); Mean Corpuscular Hemoglobin 27.8 pg (26-34); Mean Corpuscular Volume 87.9 fl (80-100); Mean Platelet Volume 11.5 fl (7.4-10.4); Monocytes Absolute Auto 0.6 K/mm3 (0.1-0.6); Monocytes Percent Auto 15.3 % (2.6-8.5); Neutrophils Absolute Auto 1.9 K/mm3 (1.3-6.7); Neutrophils Percent Auto 51.9 % (45.5-73.1); Platelet Count Result 174 k/mm3 (150-375); Red Blood Count 3.81 M/mm3 (4.2-5.4); Red Cell Distribution Width 15.3 % (11.5-14.5); White Blood Count 3.7 K/mm3 (4.5-10.0)
[2023-12-06 08:01] LABS: Alanine Aminotransferase 13 U/L (6-35); Albumin Level 3.7 g/dL (3.5-5.1); Alkaline Phosphatase 65 U/L (38-126); Anion Gap 12 mmol/L (4-12); Aspartate Amino Transferase 21 U/L (14-36); Bilirubin,Total 0.4 mg/dL (0.2-1.3); Blood Urea Nitrogen 25 mg/dL (7-17); Calcium 8.6 mg/dL (8.4-10.2); Carbon Dioxide 16 mmol/L (22-30); Chloride 108 mmol/L (98-107); Estimated CRCL calculation 31 ml/min; Estimated Glomerular Filt Rate 53; Glucose 96 mg/dL (65-110); Potassium 3.6 mmol/L (3.4-5.0); Sodium 136 mmol/L (137-145)
[2023-12-06 08:14] VITALS: BP 132/73; PULSE 69; RESP 18; O2SAT 98
[2023-12-06 08:48] LABS: Appearance Urine Cloudy (Clear); Bacteria Urine 4+ /hpf; Bilirubin Urine Negative (Negative); Blood Urine Negative (Negative); Color Urine Yellow (Yellow); Glucose Urine UA 3+ mg/dL (Negative); Hyaline Casts Urine Present /lpf; Ketones Urine Negative (Negative); Leukocyte Esterase Ur Negative LEU/UL (Negative); Need Manual Microscopic Reviewed; Nitrate Urine Positive (Negative); Protein Urine Trace mg/dL (Negative); RBC Urine 0-2 /hpf (0-2); Squamous Epithelial Cell Urine None Seen /hpf (Few); Urobilinogen Urine 0.2 mg/dL (<2.0)
[2023-12-06 08:52] LABS: Add Urine Microscopic? YES
[2023-12-06 09:40] VITALS: BP 144/66; PULSE 73; RESP 19; TEMP 36.4; O2SAT 98
== END 2023-12-06 11:26 ==
PROVIDERS: Emergency Provider Emergency Medicine; PCP Family Medicine
DX: N39.0 Urinary tract infection, site not specified (principal); E86.0 Dehydration; S79.911A Unspecified injury of right hip, initial encounter; U07.1 COVID-19; I13.0 Hypertensive heart and chronic kidney disease with heart failure and stage 1 through stage 4 chronic kidney disease, or unspecified chronic kidney disease; N18.30 Chronic kidney disease, stage 3 unspecified; I50.40 Unspecified combined systolic (congestive) and diastolic (congestive) heart failure; E78.5 Hyperlipidemia, unspecified; I34.0 Nonrheumatic mitral (valve) insufficiency; I42.8 Other cardiomyopathies; H35.30 Unspecified macular degeneration; K58.0 Irritable bowel syndrome with diarrhea; K86.1 Other chronic pancreatitis; K21.9 Gastro-esophageal reflux disease without esophagitis; F41.9 Anxiety disorder, unspecified; Z85.038 Personal history of other malignant neoplasm of large intestine; Z87.891 Personal history of nicotine dependence; Z90.710 Acquired absence of both cervix and uterus; Z90.49 Acquired absence of other specified parts of digestive tract; Z96.1 Presence of intraocular lens; Z98.49 Cataract extraction status, unspecified eye; Z79.82 Long term (current) use of aspirin; Z79.84 Long term (current) use of oral hypoglycemic drugs; Z79.899 Other long term (current) drug therapy; W18.30XA Fall on same level, unspecified, initial encounter
CPT/HCPCS: 36415; 73502; 80053; 81001; 85025; 87077; 87086; 87186; 99283

== ENCOUNTER 2023-12-14 07:45 | Emergency (ER) | payer MEDICARE, SELFPAY ==
[2023-12-14] VITALS (19 sets, daily range): BP systolic 124–148; BP diastolic 56–81; PULSE 65–87; RESP 13–25; TEMP 36.6; O2SAT 97–100
--- NOTE | ~2023-12-14 | CT_ITS ---
CT cervical spine wo con Ordering provider: Nya Eckert MD History: . fall . Comparison: April 02, 2023 Technique: CT of the cervical spine was performed without contrast. Sagittal and coronal reformatted images were also obtained and reviewed. Automated exposure control and iterative reconstruction kavon hnique were employed. The dose-length product was 605.33 mGy-cm. FINDINGS: VERTEBRAE: Minimal anterolisthesis at the level of C4-C5 with retrolisthesis at the level of C5-C6. O therwise, No subluxation or acute fracture. The occipital condyles are intact. DISC SPACES: Narrowing of the disc C5-C6 and C6-C7. Multilevel facet joint disease. Multilevel uncove rtebral joint osteoarthritic changes. Mild central protrusion at the level C3-C4 with bilateral narro wing of the foramina. Mild Bilateral narrowing of the foramina at the level of C4-C5, C5-C6 and C6-C7 . PARASPINOUS SOFT TISSUES: Normal. IMPRESSION: No acute osseous abnormality cervical spine. Reviewed, dictated and finalized at location A.
--- NOTE | ~2023-12-14 | CT_ITS ---
CT brain wo con Ordering provider: Nya Eckert MD History: 78 years Female with . fall . Comparison: October 21, 2023 Technique: CT of the head without contrast. Radiation reduction technique utilized. DLP is 605.33 mGy-cm. FINDINGS: BRAIN PARENCHYMA AND CSF SPACES: Acute epidural/subdural hematoma is seen in the left frontal lobe wi th the maximum thickness 9 mm. Hypodense areas seen in this hematoma which may indicate active bleed ing. Subdural hematoma is also seen in the right frontal lobe with the maximum thickness 7 mm. Intrap arenchymal hemorrhage seen in the right temporal lobe which measures 2 x 1.4 cm. No midline shift, ma ss effect or hemorrhage. The brain parenchyma and CSF spaces are otherwise normal. VISUALIZED PARANASAL SINUSES: Right maxillary and bilateral ethmoid sinus disease. MASTOIDS: Well aerated. BONES: The bones appear intact. SOFT TISSUES: Scalp hematoma is seen in the right frontal scalp. Visualized nasopharynx is normal. Quinn perficial soft tissues are normal. Band is seen in the left eye globe. IMPRESSION: Left frontal epidural/subdural hematoma. Right frontal subdural hematoma. Right temporal lobe intrapa renchymal hematoma. LEVEL. Dr. Nya Eckert MD was notified with the result of the patient at 8:35 AM on December 14, 2023. Reviewed, dictated and finalized at location A. IMPRESSION: Left frontal epidural/subdural hematoma. Right frontal subdural hematoma. Right temporal lobe intraparenchymal hematoma. LEVEL. Dr. Nya Eckert MD was notified with the result of the patient at 8:35 AM on December 14, 2023.
--- NOTE | 2023-12-14 08:17 | ED.FALL ---
HPI - Fall General Chief Complaint: Fall Stated Complaint: fall, head injury Time Seen by Provider: 12/14/23 08:14 Source: patient Limitations: no limitations History of Present Illness HPI Narrative: Patient presents after sustaining a fall. She denies any loss of consciousness and states she remembers the entire accident. She denies any broken or loose dentition. She is normally supposed ambulate with a walker but admits to not using at the time of the fall. She denies a headache but she is having pain at the side of of right parietal hematoma. She endorses being on anticoagulation. [facility] was reviewed and shows that she is on aspirin and Plavix. Related Data Home Medications Medication Instructions Recorded Confirmed omeprazole magnesium 20 mg 20 mg PO DAILY 05/09/19 11/08/23 tablet,delayed release (Prilosec OTC) sacubitril 24 mg-valsartan 26 mg 0.5 tablet PO Q12HR 01/29/23 11/08/23 tablet (Entresto) acetaminophen 500 mg capsule 500 mg PO Q6H PRN Pain 08/11/23 11/08/23 ascorbic acid (vitamin C) 1,000 mg 1 g PO DAILY 08/11/23 11/08/23 capsule cyanocobalamin (vitamin B-12) 1,000 mcg PO DAILY 08/11/23 11/08/23 1,000 mcg tablet ferrous sulfate 325 mg (65 mg 325 mg PO DAILY 08/11/23 11/08/23 iron) tablet spironolactone 25 mg tablet 25 mg PO DAILY PRN Hypertension 10/22/23 11/08/23 Allergies Allergy/AdvReac Type Severity Reaction Status Date / Time oxycodone AdvReac Intermediate Hallucinati Verified 12/14/23 07:54 ng codeine AdvReac Unknown Vomiting Verified 12/14/23 07:54 hydrocodone AdvReac Hallucinati Verified 12/14/23 07:54 ng morphine AdvReac Nausea Verified 12/14/23 07:54 PMF Past Medical History Medical History Acute ischemic left MCA stroke Acute left JAKE ischemic stroke Anxiety Aphasia following cerebral infarction Chronic diarrhea Chronic kidney disease, stage 3 Colon cancer Status post right hemicolectomy, completely excised. Combined systolic and diastolic heart failure Nonischemic Gastroesophageal reflux disease Hemiplegia and hemiparesis following cerebral infarction affecting right dominant side Hyperlipidemia Hypertension Idiopathic pancreatitis Irritable bowel syndrome with diarrhea Left bundle branch block Macular degeneration Mitral regurgitation Muscle weakness (generalized) Nonischemic cardiomyopathy Sphincter of Oddi dysfunction Tobacco use Surgical History Surgical History History of bunionectomy History of cardiac catheterization (02/01/23) Right coronary dominant circulation with no angiographically significant coronary artery disease. Left ventricle was enlarged with severe cardiomyopathy and EF of 25 30%. History of cataract extraction with lens replacement History of cholecystectomy History of detached retina repair History of foot surgery History of hysterectomy History of right hemicolectomy (07/2023) Laparoscopic right hemicolectomy with ileocolic anastomosis, da Michael assisted per Dr. Goldberg. Family History Family History Sibling IBS (irritable bowel syndrome) Grandparent Colitis Mother Sphincter of Oddi dysfunction Daughter Sphincter of Oddi dysfunction Father HLD (hyperlipidemia) Hypertension Acute myocardial infarction Other Carcinoma of colon Social History Social History (Updated 12/14/23 @ 08:18 by Nya Eckert MD) Social History: Surrogate medical decision maker: Lacy Dugan, daughter. Code status: DNR/No CPR [facility] (signed 11/24/23). Smoking packs per day: 0.5 Smoking cigarettes per day: 10.0 Years smoked: 12 Smoking pack-years: 6.00 Smoking status: Former smoker Tobacco type: cigarettes Second hand tobacco smoke exposure: Yes Smoking end date: 07/23/23 Alcohol intake: never Alcohol use details:
[2023-12-14] MEDS: ACETAMINOPHEN 500 MG TABLET 1000 MG PO (08:29)
[2023-12-14 09:07] LABS: Basophils Percent Auto 0.8 % (0.2-1.2); Eosinophils Absolute Auto 0.1 K/mm3 (0-0.3); Eosinophils Percent Auto 2.6 % (0-4.4); Hematocrit 32.7 % (37.0-47.0); Hemoglobin 10.1 g/dL (12.0-15.0); Immature Granulocyte Absolute 0.05 K/mm3 (0.00-0.031); Lymphocytes Absolute Auto 1.45 K/mm3 (0.9-3.2); Lymphocytes Percent Auto 29.4 % (18.3-44.2); Mean Corpuscular HGB Conc 30.9 g/dl (32-36); Mean Corpuscular Hemoglobin 27.8 pg (26-34); Mean Corpuscular Volume 90.1 fl (80-100); Mean Platelet Volume 10.8 fl (7.4-10.4); Monocytes Absolute Auto 0.6 K/mm3 (0.1-0.6); Monocytes Percent Auto 12.6 % (2.6-8.5); Neutrophils Absolute Auto 2.7 K/mm3 (1.3-6.7); Neutrophils Percent Auto 53.6 % (45.5-73.1); Platelet Count Result 401 k/mm3 (150-375); Red Blood Count 3.63 M/mm3 (4.2-5.4); Red Cell Distribution Width 16.1 % (11.5-14.5); White Blood Count 4.9 K/mm3 (4.5-10.0)
[2023-12-14 09:13] LABS: Prothrombin Time 13.5 Seconds (11.1-14.7)
[2023-12-14 09:14] LABS: Partial Thromboplastin Time 25.8 Seconds (22.3-36.8)
[2023-12-14 09:24] LABS: Alanine Aminotransferase 12 U/L (6-35); Albumin Level 3.6 g/dL (3.5-5.1); Alkaline Phosphatase 80 U/L (38-126); Anion Gap 9 mmol/L (4-12); Aspartate Amino Transferase 26 U/L (14-36); Bilirubin,Total 0.7 mg/dL (0.2-1.3); Blood Urea Nitrogen 15 mg/dL (7-17); Carbon Dioxide 23 mmol/L (22-30); Chloride 106 mmol/L (98-107); Estimated CRCL calculation 39 ml/min; Estimated Glomerular Filt Rate > 60; Glucose 99 mg/dL (65-110); Potassium 3.6 mmol/L (3.4-5.0); Sodium 138 mmol/L (137-145)
--- NOTE | 2023-12-14 10:18 | PC.NURSE ---
To [facility] via [facility]. Condition stable.
== END 2023-12-14 10:19 | disposition short-term general hospital (02) ==
LOC: ANHED 08:27
PROVIDERS: Emergency Provider Student in an Organized Health Care Education/Training Program; PCP Family Medicine
DX: S06.4X0A Epidural hemorrhage without loss of consciousness, initial encounter (principal); S06.2X0A Diffuse traumatic brain injury without loss of consciousness, initial encounter; D64.9 Anemia, unspecified; D69.6 Thrombocytopenia, unspecified; Z87.891 Personal history of nicotine dependence; F41.9 Anxiety disorder, unspecified; I13.0 Hypertensive heart and chronic kidney disease with heart failure and stage 1 through stage 4 chronic kidney disease, or unspecified chronic kidney disease; N18.30 Chronic kidney disease, stage 3 unspecified; I50.82 Biventricular heart failure; K21.9 Gastro-esophageal reflux disease without esophagitis; Z79.01 Long term (current) use of anticoagulants; W19.XXXA Unspecified fall, initial encounter
CPT/HCPCS: 36415; 70450; 72125; 80053; 85025; 85610; 85730; 99285; A9270

== ENCOUNTER 2023-12-22 14:46 | Emergency (ER) | payer MEDICARE, SELFPAY ==
--- NOTE | ~2023-12-22 | CT_ITS ---
EXAMINATION: CT cervical spine wo con DATE: 12/22/2023 15:09 INDICATION: Neck injury. Fall. TECHNIQUE: Computed tomography (CT) of the cervical spine was performed without intravenous contrast. Automated exposure control and iterative reconstruction technique were employed. The dose-length pro duct was 175.16 mGy-cm. COMPARISON: CT cervical spine 12/14/2023 FINDINGS: There is mild scarring at the lung apices. There is 2 mm retrolisthesis of C3 and C4, 2 mm anterolisthesis of C4 on C5, and 2 mm retrolisthesis of C5 on C6. Vertebral body heights are normal. There is severely decreased disc height at C3-C4, mildly decreased disc height at C4-C5, severely dec reased disc height at C5-C6, and moderately decreased disc height at C6-C7. The following disc levels are specifically discussed: C2-C3: There is no uncovertebral joint osteoarthritis. There is mild right facet joint osteoarthritis . There is ankylosis of left facet joint with mild hypertrophy. There is no neural foraminal stenosis . There is no central canal stenosis. C3-C4: There is severe bilateral uncovertebral joint osteoarthritis. There is severe bilateral facet joint osteoarthritis. There is mild bilateral neural foraminal stenosis. There is mild central canal stenosis. C4-C5: There is mild right and severe left uncovertebral joint osteoarthritis. There is severe bilate ral facet joint osteoarthritis. There is mild bilateral neural foraminal stenosis. There is mild cent ral canal stenosis. C5-C6: There is severe bilateral uncovertebral joint osteoarthritis. There is mild bilateral facet bert int osteoarthritis. There is mild bilateral neural foraminal stenosis. There is mild central canal st enosis. C6-C7: There is moderate bilateral uncovertebral joint osteoarthritis. There is mild right and severe left facet joint osteoarthritis. There is mild left neural foraminal stenosis. There is mild central canal stenosis. C7-T1: There is no uncovertebral joint osteoarthritis. There is moderate right and severe left facet joint osteoarthritis. There is mild left neural foraminal stenosis. There is no central canal stenosi s. IMPRESSION: 1. No fracture. 2. Severe cervical spondylosis. Reviewed, dictated and finalized at location A.
--- NOTE | ~2023-12-22 | CT_ITS ---
CT brain wo con Ordering provider: Guanako Zarate MD History: 78 years Female with . fall . Comparison: December 14, 2023 Technique: CT of the head without contrast. Radiation reduction technique utilized. DLP is 681 mGy-cm. FINDINGS: BRAIN PARENCHYMA AND CSF SPACES: Acute subdural hemorrhage is seen in the right temporal, frontal and parietal area is with intraparenchymal hemorrhage seen in the posterior right temporal area. This he matoma measures 1.2 x 2.2 cm. Surrounding edema is noted. The thickness of the subdural hematoma is 1 .3 cm. Left epidural/subdural hematoma is seen with maximum thickness of 0.7 cm. Isodense subdural he matomas are seen in the upper frontal area bilaterally measuring 1 on the left side down 0.6 cm on th e right.. Mild brain atrophy with deep white matter ischemic changes. No midline shift, mass effect.. The brain parenchyma and CSF spaces are otherwise normal. VISUALIZED PARANASAL SINUSES: Well aerated. MASTOIDS: Well aerated. BONES: The bones appear intact. SOFT TISSUES: Visualized nasopharynx is normal. Superficial soft tissues are normal. IMPRESSION: Subdural hematomas minimally changed since previous study in both frontal, right parietal and tempora l areas. Upper frontal chronic subdural hematomas. Reviewed, dictated and finalized at location A. IMPRESSION: Subdural hematomas minimally changed since previous study in both frontal, righ t parietal and temporal areas. Upper frontal chronic subdural hematomas.
[2023-12-22 14:46] VITALS: BP 119/61; PULSE 85; RESP 16; TEMP 36.4; O2SAT 96
--- NOTE | 2023-12-22 14:53 | PC.NURSE ---
Patient has bruising and bump to right eye and side of her head from previous fall last week. patient also has right sided facial droop from a stroke September 2023.
--- NOTE | 2023-12-22 16:47 | ED.FALL ---
HPI - Fall General Chief Complaint: Fall Stated Complaint: fall Time Seen by Provider: 12/22/23 15:57 Source: patient, family and EMS Mode of arrival: EMS Limitations: altered mental status History of Present Illness HPI Narrative: Patient presents after an unwitnessed fall this afternoon. Patient has had multiple falls including a fall on December 13 which resulted in subdural hematoma as well as other intracranial bleeds for which she was [facility]. Family states that they gave her platelets and she was in the ICU and then moved out of the ICU on and released the next day. Patient is currently in a part of the unit and they have trialed bed alarms given the fact that she continues to have frequent far as but she continues to get out of bed. They have a family meeting scheduled this week to reassess as it is strongly felt by facility staff and family that she may rehab/residential facility. Patient has no complaints. Related Data Home Medications Medication Instructions Recorded Confirmed omeprazole magnesium 20 mg 20 mg PO DAILY 05/09/19 11/08/23 tablet,delayed release (Prilosec OTC) sacubitril 24 mg-valsartan 26 mg 0.5 tablet PO Q12HR 01/29/23 11/08/23 tablet (Entresto) acetaminophen 500 mg capsule 500 mg PO Q6H PRN Pain 08/11/23 11/08/23 ascorbic acid (vitamin C) 1,000 mg 1 g PO DAILY 08/11/23 11/08/23 capsule cyanocobalamin (vitamin B-12) 1,000 mcg PO DAILY 08/11/23 11/08/23 1,000 mcg tablet ferrous sulfate 325 mg (65 mg 325 mg PO DAILY 08/11/23 11/08/23 iron) tablet spironolactone 25 mg tablet 25 mg PO DAILY PRN Hypertension 10/22/23 11/08/23 Allergies Allergy/AdvReac Type Severity Reaction Status Date / Time oxycodone AdvReac Intermediate Hallucinati Verified 12/14/23 07:54 ng codeine AdvReac Unknown Vomiting Verified 12/14/23 07:54 hydrocodone AdvReac Hallucinati Verified 12/14/23 07:54 ng morphine AdvReac Nausea Verified 12/14/23 07:54 [facility] Past Medical History Medical History Acute ischemic left MCA stroke Acute left JAKE ischemic stroke Anxiety Aphasia following cerebral infarction Chronic diarrhea Chronic kidney disease, stage 3 Colon cancer Status post right hemicolectomy, completely excised. Combined systolic and diastolic heart failure Nonischemic Gastroesophageal reflux disease Hemiplegia and hemiparesis following cerebral infarction affecting right dominant side Hyperlipidemia Hypertension Idiopathic pancreatitis Irritable bowel syndrome with diarrhea Left bundle branch block Macular degeneration Mitral regurgitation Muscle weakness (generalized) Nonischemic cardiomyopathy Sphincter of Oddi dysfunction Subdural hematoma Tobacco use Surgical History Surgical History History of bunionectomy History of cardiac catheterization (02/01/23) Right coronary dominant circulation with no angiographically significant coronary artery disease. Left ventricle was enlarged with severe cardiomyopathy and EF of 25 30%. History of cataract extraction with lens replacement History of cholecystectomy History of detached retina repair History of foot surgery History of hysterectomy History of right hemicolectomy (07/2023) Laparoscopic right hemicolectomy with ileocolic anastomosis, da Michael assisted per Dr. Goldberg. Family History Family History Sibling IBS (irritable bowel syndrome) Grandparent Colitis Mother Sphincter of Oddi dysfunction Daughter Sphincter of Oddi dysfunction Father HLD (hyperlipidemia) Hypertension Acute myocardial infarction Other Carcinoma of colon Social History Social History (Updated 12/14/23 @ 08:18 by Nya Eckert MD) Social History: Surrogate medical decision maker: Lacy Dugan, daughter. Code status: DNR/No CPR per [facility] from [facility] ([facility]
--- NOTE | 2023-12-22 18:04 | PC.NURSE ---
Patient states she is not in any pain at this time and does not want the tylenol.
[2023-12-22 18:12] VITALS: BP 150/58; PULSE 89; RESP 16; O2SAT 96
== END 2023-12-22 18:16 ==
PROVIDERS: Emergency Provider Student in an Organized Health Care Education/Training Program; PCP Family Medicine
DX: M47.812 Spondylosis without myelopathy or radiculopathy, cervical region (principal); S06.5X0D Traumatic subdural hemorrhage without loss of consciousness, subsequent encounter; R29.6 Repeated falls; N18.30 Chronic kidney disease, stage 3 unspecified; I13.0 Hypertensive heart and chronic kidney disease with heart failure and stage 1 through stage 4 chronic kidney disease, or unspecified chronic kidney disease; I50.40 Unspecified combined systolic (congestive) and diastolic (congestive) heart failure; I69.951 Hemiplegia and hemiparesis following unspecified cerebrovascular disease affecting right dominant side; I69.920 Aphasia following unspecified cerebrovascular disease; I34.0 Nonrheumatic mitral (valve) insufficiency; I42.8 Other cardiomyopathies; E78.5 Hyperlipidemia, unspecified; H35.30 Unspecified macular degeneration; K58.0 Irritable bowel syndrome with diarrhea; K21.9 Gastro-esophageal reflux disease without esophagitis; Z66 Do not resuscitate; Z85.038 Personal history of other malignant neoplasm of large intestine; Z87.891 Personal history of nicotine dependence; Z96.1 Presence of intraocular lens; Z98.49 Cataract extraction status, unspecified eye; Z90.49 Acquired absence of other specified parts of digestive tract; Z90.710 Acquired absence of both cervix and uterus; Z79.899 Other long term (current) drug therapy; W19.XXXA Unspecified fall, initial encounter; W19.XXXD Unspecified fall, subsequent encounter
CPT/HCPCS: 70450; 72125; 99284

== ENCOUNTER 2023-12-26 08:50 | Emergency (ER) | payer MEDICARE, SELFPAY ==
[2023-12-26] VITALS (21 sets, daily range): BP systolic 111–141; BP diastolic 45–81; PULSE 66–92; RESP 16–28; TEMP 36.7–36.8; O2SAT 94–100
--- NOTE | ~2023-12-26 | XR_ITS ---
Portable chest x-ray Comparison: 10/20/2023 Clinical History: Altered mental status Findings: There is mild bibasilar haziness. Cardiomediastinal silhouette is stable. Bones and soft tissues are unremarkable. Impression: Probable mild bibasilar pulmonary edema/atelectatic change. Correlate clinically for pneumonia. Reviewed, dictated and finalized at [facility]. Impression: Probable mild bibasilar pulmonary edema/atelectatic change. Correlate clinicall y for pneumonia.
--- NOTE | ~2023-12-26 | CT_ITS ---
CT head without contrast Indication: Mental status change COMPARISON: 12/22/2023 Technique: Serial scans were obtained through the brain without the administration of contrast. Dose reduction technique was used on this scan by utilizing automated exposure control and iterative recon struction technique. The dose-length product (DLP) was 605.33 mGy-cm. Findings: Acute right frontal subdural hematomas minimally decreased from prior exam. There as also b een interval improvement of the hemorrhagic contusion at the right temporal lobe, there is persistent vasogenic edema in this region. No midline shift. No new intracranial hemorrhage identified. The ve ntricles and subarachnoid spaces are dilated, consistent with mild atrophy. Low attenuation regions are seen within the periventricular white matter bilaterally, likely representing changes from chroni c microvascular ischemic disease. The visualized paranasal sinuses and mastoid air cells are clear. Impression: Significant interval improvement in right temporal hemorrhagic contusion with persistent vasogenic ed corey. Additional mild interval improvement of acute right frontal subdural hematoma. No new abnormality seen. Atrophy and chronic white matter changes, as above. Reviewed, dictated and finalized at location M. Impression: Significant interval improvement in right temporal hemorrhagic contusion with p ersistent vasogenic edema. Additional mild interval improvement of acute right frontal subdural hematoma. No new abnormality seen. Atrophy and chronic white matter changes, as above.
[2023-12-26 09:04] LABS: Glucose Point of Care 124 mg/dl (65-105)
--- NOTE | 2023-12-26 09:04 | ECG_ITS ---
Test Date: 2023-12-26 09:07:01 Measurements Intervals [place] Rate: 81 P: 4 AL: 166 QRS: -52 QRSD: 161 T: 111 QT: 428 QTc: 498 Interpretive Statements SINUS RHYTHM LEFT AXIS DEVIATION [QRS AXIS < -30] LEFT BUNDLE BRANCH BLOCK [120+ ms QRS DURATION, 80+ ms Q/S IN V1/V2, 85+ ms R IN I/aVL/V5/V6] ABNORMAL ECG No previous ECG available for comparison Electronically Signed On 12-26-2023 09:10:42 CDT by Robert Salcido M.D.
[2023-12-26 09:34] LABS: Basophils Absolute Auto 0.1 K/mm3 (0.0-0.1); Basophils Percent Auto 2.3 % (0.2-1.2); Eosinophils Absolute Auto 0.1 K/mm3 (0-0.3); Hematocrit 30.7 % (37.0-47.0); Hemoglobin 9.2 g/dL (12.0-15.0); Immature Granulocyte Absolute 0.06 K/mm3 (0.00-0.031); Immature Granulocyte Percent A 1.4 % (0-0.5); Lymphocytes Absolute Auto 1.33 K/mm3 (0.9-3.2); Lymphocytes Percent Auto 30.4 % (18.3-44.2); Mean Corpuscular Hemoglobin 27.9 pg (26-34); Mean Platelet Volume 10.5 fl (7.4-10.4); Monocytes Absolute Auto 0.6 K/mm3 (0.1-0.6); Monocytes Percent Auto 12.8 % (2.6-8.5); Neutrophils Absolute Auto 2.2 K/mm3 (1.3-6.7); Neutrophils Percent Auto 50.1 % (45.5-73.1); Platelet Count Result 387 k/mm3 (150-375); Red Cell Distribution Width 17.1 % (11.5-14.5); White Blood Count 4.4 K/mm3 (4.5-10.0)
[2023-12-26 09:45] LABS: Alanine Aminotransferase 25 U/L (6-35); Albumin Level 3.7 g/dL (3.5-5.1); Alkaline Phosphatase 96 U/L (38-126); Anion Gap 8 mmol/L (4-12); Aspartate Amino Transferase 25 U/L (14-36); Bilirubin,Total 0.7 mg/dL (0.2-1.3); Blood Urea Nitrogen 15 mg/dL (7-17); Calcium 8.8 mg/dL (8.4-10.2); Carbon Dioxide 29 mmol/L (22-30); Chloride 99 mmol/L (98-107); Estimated CRCL calculation 35 ml/min; Estimated Glomerular Filt Rate 60; Glucose 117 mg/dL (65-110); Potassium 3.5 mmol/L (3.4-5.0); Sodium 136 mmol/L (137-145)
[2023-12-26 09:50] LABS: Prothrombin Time 13.5 Seconds (11.1-14.7)
[2023-12-26 09:51] LABS: Partial Thromboplastin Time 32.5 Seconds (22.3-36.8)
[2023-12-26 09:57] LABS: Troponin I < 0.012 ng/mL (0.000-0.034)
[2023-12-26 11:04] LABS: Add Urine Microscopic? YES; Appearance Urine Cloudy (Clear); Bacteria Urine 4+ /hpf; Bilirubin Urine Negative (Negative); Blood Urine Negative (Negative); Color Urine Yellow (Yellow); Glucose Urine UA 3+ mg/dL (Negative); Ketones Urine Negative (Negative); Leukocyte Esterase Ur 1+ LEU/UL (Negative); Nitrate Urine Positive (Negative); Protein Urine Negative (Negative); RBC Urine 0-2 /hpf (0-2); Specific Grav Ur 1.029 (1.001-1.035); Squamous Epithelial Cell Urine None Seen /hpf (Few); WBC Urine >100 /hpf (0-3)
--- NOTE | 2023-12-26 11:16 | ED.NEUROSD ---
HPI - Neuro Symptoms/Deficit General Chief Complaint: Suspected CVA Stated Complaint: cva? Source: EMS Mode of arrival: EMS Limitations: dementia History of Present Illness HPI Narrative: Patient is an 78-year-old female who presents ER with concerns for CVA by her shelter. Patient had a subdural hemorrhage last week. She was flown to the [facility]. She has since been rehab. Patient has had chronic right-sided facial droop since injury. She is alert orient x1. She has no complaints at this time. She does have bruising around her right eye that is old. Patient has no complaints. Related Data Home Medications Medication Instructions Recorded Confirmed omeprazole magnesium 20 mg 20 mg PO DAILY 05/09/19 12/23/23 tablet,delayed release (Prilosec OTC) sacubitril 24 mg-valsartan 26 mg 0.5 tablet PO Q12HR 01/29/23 12/23/23 tablet (Entresto) acetaminophen 500 mg capsule 500 mg PO Q6H PRN Pain 08/11/23 12/23/23 ascorbic acid (vitamin C) 1,000 mg 1 g PO DAILY 08/11/23 12/23/23 capsule cyanocobalamin (vitamin B-12) 1,000 mcg PO DAILY 08/11/23 12/23/23 1,000 mcg tablet ferrous sulfate 325 mg (65 mg 325 mg PO DAILY 08/11/23 12/23/23 iron) tablet spironolactone 25 mg tablet 25 mg PO DAILY PRN Hypertension 10/22/23 12/23/23 Allergies Allergy/AdvReac Type Severity Reaction Status Date / Time oxycodone AdvReac Intermediate Hallucinati Verified 12/14/23 07:54 ng codeine AdvReac Unknown Vomiting Verified 12/14/23 07:54 hydrocodone AdvReac Hallucinati Verified 12/14/23 07:54 ng morphine AdvReac Nausea Verified 12/14/23 07:54 Review of Systems Review of Systems: ROS unobtainable: Yes unobtainable due to mental status PMFSH Past Medical History Medical History Acute ischemic left MCA stroke Acute left JAKE ischemic stroke Anxiety Aphasia following cerebral infarction Chronic diarrhea Chronic kidney disease, stage 3 Colon cancer Status post right hemicolectomy, completely excised. Combined systolic and diastolic heart failure Nonischemic Gastroesophageal reflux disease Hemiplegia and hemiparesis following cerebral infarction affecting right dominant side Hyperlipidemia Hypertension Idiopathic pancreatitis Irritable bowel syndrome with diarrhea Left bundle branch block Macular degeneration Mitral regurgitation Muscle weakness (generalized) Nonischemic cardiomyopathy Sphincter of Oddi dysfunction Subdural hematoma Tobacco use Surgical History Surgical History History of bunionectomy History of cardiac catheterization (02/01/23) Right coronary dominant circulation with no angiographically significant coronary artery disease. Left ventricle was enlarged with severe cardiomyopathy and EF of 25 30%. History of cataract extraction with lens replacement History of cholecystectomy History of detached retina repair History of foot surgery History of hysterectomy History of right hemicolectomy (07/2023) Laparoscopic right hemicolectomy with ileocolic anastomosis, da Michael assisted per Dr. Goldberg. Family History Family History Sibling IBS (irritable bowel syndrome) Grandparent Colitis Mother Sphincter of Oddi dysfunction Daughter Sphincter of Oddi dysfunction Father HLD (hyperlipidemia) Hypertension Acute myocardial infarction Other Carcinoma of colon Social History Social History (Updated 12/14/23 @ 08:18 by Nya Eckert MD) Social History: Surrogate medical decision maker: Lacy Dugan, daughter. Code status: DNR/No CPR per POLST from shelter (signed 11/24/23). Smoking packs per day: 0.5 Smoking cigarettes per day: 10.0 Years smoked: 12 Smoking pack-years: 6.00 Smoking status: Former smoker Tobacco type: cigarettes Second hand tobacco smoke exposure: Yes Smoking end date: 07/23/23 Alcohol in
== END 2023-12-26 12:36 ==
PROVIDERS: Emergency Provider Emergency Medicine; PCP Family Medicine
DX: N39.0 Urinary tract infection, site not specified (principal); S06.5XAS Traumatic subdural hemorrhage with loss of consciousness status unknown, sequela; R29.810 Facial weakness; N18.30 Chronic kidney disease, stage 3 unspecified; I13.0 Hypertensive heart and chronic kidney disease with heart failure and stage 1 through stage 4 chronic kidney disease, or unspecified chronic kidney disease; I50.40 Unspecified combined systolic (congestive) and diastolic (congestive) heart failure; I69.951 Hemiplegia and hemiparesis following unspecified cerebrovascular disease affecting right dominant side; I69.920 Aphasia following unspecified cerebrovascular disease; I34.0 Nonrheumatic mitral (valve) insufficiency; I42.8 Other cardiomyopathies; E78.5 Hyperlipidemia, unspecified; K21.9 Gastro-esophageal reflux disease without esophagitis; Z66 Do not resuscitate; Z85.038 Personal history of other malignant neoplasm of large intestine; Z87.891 Personal history of nicotine dependence; Z96.1 Presence of intraocular lens; Z98.49 Cataract extraction status, unspecified eye; Z90.49 Acquired absence of other specified parts of digestive tract; Z90.710 Acquired absence of both cervix and uterus; Z79.899 Other long term (current) drug therapy; I44.7 Left bundle-branch block, unspecified; W19.XXXS Unspecified fall, sequela
CPT/HCPCS: 36415; 70450; 71045; 80053; 81001; 82948; 84484; 85025; 85610; 85730; 87077; 87086; 87088; 87186; 93005; 99284

== ENCOUNTER 2024-03-15 08:31 | Outpatient (CLI) | payer MEDICARE, BC, SELFPAY ==
--- NOTE | ~2024-03-15 | CT_ITS ---
EXAMINATION: CT abdomen pelvis w con DATE: 03/15/2024 09:16 INDICATION: Adenocarcinoma of colon. TECHNIQUE: Computed tomography (CT) of the abdomen and pelvis was performed with 100 mL Omnipaque 350 intravenous contrast. Automated exposure control and iterative reconstruction technique were employe d. The dose-length product was 267.51 mGy-cm. COMPARISON: CT abdomen and pelvis 07/05/2023 FINDINGS: The visualized portions of the lung bases demonstrate mild atelectasis. No pleural effusion . The heart size is normal. There are coronary artery calcifications. No pericardial effusion. There are bilateral breast implants. The liver demonstrates pneumobilia, likely secondary to sphincterotomy . There is a 2.8 cm mass in right hepatic lobe. The gallbladder is absent. The spleen, pancreas, and adrenal glands are normal. There is a 5 mm cyst in right kidney. There is mild atrophy of left kidney . There are changes of right hemicolectomy. There are no pathologically enlarged lymph nodes. There i s no free intraperitoneal fluid. There is thoracolumbar dextroscoliosis and severe spondylosis. IMPRESSION: 1. New 2.8 cm mass in right hepatic lobe, consistent with metastatic disease. Reviewed, dictated and finalized at location A.
[2024-03-15 09:07] LABS: Estimated Glomerular Filt Rate 53
== END 2024-03-15 08:32 | disposition home or self-care (01) ==
LOC: ANHIMG 08:36
PROVIDERS: PCP Family Medicine; Visit Provider Internal Medicine Hematology & Oncology
DX: C18.9 Malignant neoplasm of colon, unspecified (principal)
CPT/HCPCS: 74177; Q9967

== ENCOUNTER 2024-03-21 10:13 | Outpatient (CLI) | payer MEDICARE, BC, SELFPAY ==
[2024-03-21 10:49] LABS: Basophils Absolute Auto 0.1 K/mm3 (0.0-0.1); Basophils Percent Auto 1.7 % (0.2-1.2); Eosinophils Absolute Auto 0.1 K/mm3 (0-0.3); Hematocrit 38.8 % (37.0-47.0); Immature Granulocyte Absolute 0.06 K/mm3 (0.00-0.031); Immature Granulocyte Percent A 1.3 % (0-0.5); Lymphocytes Absolute Auto 1.41 K/mm3 (0.9-3.2); Lymphocytes Percent Auto 29.9 % (18.3-44.2); Mean Corpuscular HGB Conc 30.9 g/dl (32-36); Mean Corpuscular Hemoglobin 28.4 pg (26-34); Mean Corpuscular Volume 91.7 fl (80-100); Mean Platelet Volume 10.3 fl (7.4-10.4); Monocytes Absolute Auto 0.4 K/mm3 (0.1-0.6); Monocytes Percent Auto 9.3 % (2.6-8.5); Neutrophils Absolute Auto 2.6 K/mm3 (1.3-6.7); Neutrophils Percent Auto 54.8 % (45.5-73.1); Platelet Count Result 290 k/mm3 (150-375); Red Blood Count 4.23 M/mm3 (4.2-5.4); Red Cell Distribution Width 15.8 % (11.5-14.5); White Blood Count 4.7 K/mm3 (4.5-10.0)
[2024-03-21 11:42] LABS: Iron 55 ug/dL (37-170)
[2024-03-21 11:46] LABS: Alanine Aminotransferase 13 U/L (6-35); Albumin Level 4.2 g/dL (3.5-5.1); Alkaline Phosphatase 106 U/L (38-126); Anion Gap 10 mmol/L (4-12); Aspartate Amino Transferase 19 U/L (14-36); Bilirubin,Total 0.4 mg/dL (0.2-1.3); Blood Urea Nitrogen 24 mg/dL (7-17); Calcium 9.3 mg/dL (8.4-10.2); Carbon Dioxide 29 mmol/L (22-30); Chloride 102 mmol/L (98-107); Estimated Glomerular Filt Rate 43; Glucose 91 mg/dL (65-110); Potassium 4.9 mmol/L (3.4-5.0); Sodium 141 mmol/L (137-145)
[2024-03-21 12:00] LABS: Percent Iron Saturation 20 % (20-50)
[2024-03-21 12:12] LABS: Carcinoembryonic Antigen 2.9 ng/mL (0.0-3.0)
[2024-03-21 12:48] LABS: Folic Acid 7.7 ng/mL (2.76->20)
== END 2024-03-21 10:14 | disposition home or self-care (01) ==
LOC: ANHLAB 10:15
PROVIDERS: PCP Family Medicine; Visit Provider Internal Medicine Hematology & Oncology
DX: D64.9 Anemia, unspecified (principal); C18.9 Malignant neoplasm of colon, unspecified
CPT/HCPCS: 36415; 80053; 82378; 82607; 82728; 82746; 83540; 83550; 85025

== ENCOUNTER 2024-03-30 07:38 | Outpatient (CLI) | payer MEDICARE, SELFPAY ==
--- NOTE | 2024-03-23 14:58 | PC.NURSE ---
Pre Radiology instructions Report to the outpatient maykel allen on date _03/30/24__at time __07:30am__ for procedure Time: _09:30am___ YOU MAY BE MONITORED AT HOSPITAL FOR UP TO 4 HOURS AFTER YOUR PROCEDURE. A visitor will be allowed to accompany the patient into the hospital. You and your visitor will be asked to self-screen and do not enter if you have any COVID symptoms. A mask is OPTIONAL within the hospital. Patients are to have no food or drink 6 hours prior to procedure time Driving will be restricted after the procedure, you must have a person to drive you home. Labs will be drawn in preop area and once reviewed, you will be taken to radiology area for procedure. When the procedure is completed, you will be taken to outpatient where you will be monitored for several hours. You may have one visitor in this area. Other than holding anti-coagulants, patient may take other medication(s) as scheduled. Prior to your appointment date patients are instructed to hold anti-coagulants after discussing with ordering provider to stop. If unable to discontinue anti-coagulants please notify radiologist. ? No aspirin or warfarin (Coumadin) for 7 days prior to the procedure. ? No clopidogrel (Plavix), ticagrelor (Brilinta), prasugrel (Effient) or dabigatran (Pradaxa) for 5 days prior to the procedure. ? No rivaroxaban (Xarelto), apixaban (Eliquis), dipyridamole (Aggrenox or Persantine) or cilostazol (Pletal) for 2 days prior to the procedure. Medications to discontinue per physician: _Aspirin for 7 days Date to take last dose: ___03/22/24 Hold Plavix for 5 days prior- date to take last dose 03/24/24 Please leave all valuables, including medications, at home the day of procedure. The hospital will not accept responsibility for valuables. Wear comfortable, loose fitting clothing.? Follow any additional instructions given to you from ordering provider. Telephone instructions given to __Lacy her Daughter POA and asked if any additional questions and then verbalized understanding. Patient advised to call scheduling provider office or registration scheduling [phone] if any additional questions.
[2024-03-23 15:14] VITALS: BMI 22.6
[2024-03-30] VITALS (12 sets, daily range): BP systolic 113–157; BP diastolic 55–82; PULSE 61–71; RESP 14–18; TEMP 36.6; O2SAT 95–99
--- NOTE | ~2024-03-30 | US_ITS ---
EXAMINATION: US biopsy liver DATE: 03/30/2024 10:17 INDICATION: Liver mass. Adenocarcinoma of colon. TECHNIQUE: The procedure including the risks, benefits, and alternatives was discussed with the patie nt. Risks discussed included bleeding and infection. The patient understood the risks and agreed to p roceed. The skin overlying the liver was prepped and draped in usual sterile fashion. Anesthetic was administered with 1% lidocaine subcutaneously. An 18 gauge core biopsy needle was then used to obta in 3 core biopsy specimens under continuous sonographic guidance. The entry site was cleaned and dres sed. There were no immediate complications. FINDINGS: Ultrasound images demonstrate the needle in a 2.8 cm hyperechoic mass in right hepatic lobe . IMPRESSION: 1. Ultrasound-guided core needle biopsy of a liver mass. Reviewed, dictated and finalized at location A. ER OPERATOR
[2024-03-30] MEDS: SODIUM CHLORIDE 0.9% IV 1,000 ML 30 ML IV CONT (08:49)
[2024-03-30 09:24] LABS: Prothrombin Time 13.3 Seconds (11.1-14.7)
== END 2024-03-30 14:25 | disposition home or self-care (01) ==
PROVIDERS: Radiology Diagnostic Radiology; PCP Family Medicine; Referring Provider Internal Medicine Hematology & Oncology; Visit Provider Radiology Diagnostic Radiology
PROC: BF45ZZZ Ultrasonography of Liver (ICD-10-PCS; CPT 47000; principal; 2024-03-30 09:30)
DX: K76.89 Other specified diseases of liver (principal); C78.7 Secondary malignant neoplasm of liver and intrahepatic bile duct
CPT/HCPCS: 36415; 47000; 76942; 85610; 88307; J7030

== ENCOUNTER 2024-05-11 10:13 | Emergency (ER) | payer MEDICARE, BC, SELFPAY ==
[2024-05-11] VITALS (7 sets, daily range): BP systolic 141–149; BP diastolic 61–73; PULSE 77–84; RESP 16–17; TEMP 36.4; O2SAT 95–97
--- NOTE | ~2024-05-11 | XR_ITS ---
XR chest 2V 05/11/2024 11:30 Indication: Cough Procedure: 2 view chest Comparison: Comparison to multiple prior studies sequentially, with oldest reviewed study dated 03/24. Findings: There is atherosclerosis of the aorta. Cardiomegaly. No focal air space disease, pulmonary edema, pleural effusion or suspected pneumothorax. Moderate thoracic spondylosis. Accentuated kyphosi s. No acute osseous abnormality. Impression: 1: No acute cardiopulmonary disease. Reviewed, dictated and finalized at location B. RTAINMENT MUSICIAN Impression: 1: No acute cardiopulmonary disease.
--- NOTE | 2024-05-11 10:26 | ED_ITS ---
HPI - General Adult General Chief complaint: Unspecified Stated complaint: family requests pt to be evaluated Time Seen by Provider: 05/11/24 10:19 History of Present Illness HPI narrative: patient is an 79-year-old female with history of vascular dementia who presents to the ER for weakness. Accompanied by family. Lives at home with them. Has had recent cough. No falls. Increased urinary frequency. No reports of dysuria. No abdominal pain or vomiting. No known sick contacts. Related Data Home Medications ?Medication ?Instructions ?Recorded ?Confirmed ?Last Taken ?Type omeprazole magnesium 20 mg 20 mg PO DAILY 05/09/19 04/13/24 03/30/24 History tablet,delayed release (Prilosec OTC) sacubitril 24 mg-valsartan 26 mg 0.5 tablet PO Q12HR 01/29/23 04/13/24 03/30/24 History tablet (Entresto) acetaminophen 500 mg capsule 500 mg PO Q6H PRN Pain 08/11/23 04/13/24 08/15/23 History ascorbic acid (vitamin C) 1,000 mg 1 g PO DAILY 08/11/23 04/13/24 10/22/23 09:35 History capsule cyanocobalamin (vitamin B-12) 1,000 mcg PO DAILY 08/11/23 04/13/24 10/22/23 09:35 History 1,000 mcg tablet ferrous sulfate 325 mg (65 mg 325 mg PO DAILY 08/11/23 04/13/24 10/22/23 09:35 History iron) tablet spironolactone 25 mg tablet 25 mg PO DAILY PRN Hypertension 10/22/23 04/13/24 Unknown History empagliflozin 10 mg tablet 10 mg PO DAILY HEART FAILURE 04/13/24 04/13/24 Unknown History (Jardiance) Allergies Allergy/AdvReac Type Severity Reaction Status Date / Time hydrocodone AdvReac Intermediate Hallucinati Verified 05/11/24 10:26 ng morphine AdvReac Intermediate Nausea Verified 05/11/24 10:26 oxycodone AdvReac Intermediate Hallucinati Verified 05/11/24 10:26 ng codeine AdvReac Unknown Vomiting Verified 05/11/24 10:26 Review of Systems 2 Constitutional: Constitutional: Reports no additional constitutional complaints Cardiovascular: Cardiovascular: Reports no additional cardiovascular complaints Respiratory: Respiratory: Reports no additional respiratory complaints Gastrointestinal: Gastrointestinal: Reports no additional gastrointestinal complaints Genitourinary: Genitourinary: Reports no additional female genitourinary complaints [facility] Past Medical History Medical History (Updated 05/11/24 @ 13:59 by Darrian Bhat MD) Blunt head trauma TIA (transient ischemic attack) Vascular dementia Subdural hematoma Muscle weakness (generalized) 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 Macular degeneration Nonischemic cardiomyopathy Combined systolic and diastolic heart failure Nonischemic Gastroesophageal reflux disease Left bundle branch block Irritable bowel syndrome with diarrhea Chronic kidney disease, stage 3 Mitral regurgitation Tobacco use Idiopathic pancreatitis Chronic diarrhea Hyperlipidemia Hypertension Anxiety Sphincter of Oddi dysfunction Surgical History Surgical History History of right hemicolectomy (07/2023) Laparoscopic right hemicolectomy with ileocolic anastomosis, da Michael assisted per Dr. Goldberg. History of cardiac catheterization (02/01/23) Right coronary dominant circulation with no angiographically significant coronary artery disease. Left ventricle was enlarged with severe cardiomyopathy and EF of 25 30%. History of cholecystectomy History of bunionectomy History of foot surgery History of hysterectomy History of cataract extraction with lens replacement History of detached retina repair Family History Family History Sibling IBS (irritable bowel syndrome) Grandparent Colitis Mother Sphincter of Oddi dysfunction Daughter Sphincter of Oddi dysfunction Father HLD (hyperlipidemia) Hypertension Acute myocardial infarction Other Carcinoma of colon Social History Social History (Updated 02/07/24 @ 13:52 by LIAM Collins) Social History: Surrogate medical decision maker: Lacy Dugan, daughter. Code status: DNR/No CPR per [facility] from detention (signed 11/24/23). Smoking packs per day: 0.5 Smoking cigarettes per day: 10.0 Years smoked: 12 Smoking pack-years: 6.00 Smoking status: Former smoker Tobacco type: cigarettes Second hand tobacco smoke exposure: Yes Smoking end date: 07/23/23 Alcohol intake: current Alcohol use details: Ocassional Substance use: never Substance use type: does not use Do You Feel Safe in your Home?: Yes Lack of Transportation: No Lack of Food: Never True Current Housing: I Have Housing Concerned About Future Housing: No Difficulty Paying Gas/Electric Bills: No Difficulty Paying for Meds: No Currently Unemployed: No Education: High School Diploma/GED Difficulty w/ Childcare or Family Care: No Living arrangements: with family Additional living arrangements comments: . Has 2 children. Occupation/Education: retired Additional occupation/education comments: Formerly worked at [employer] Gender identity (if verbalized by the patient): Female Spiritual care concerns: No Agree to blood products: Yes Exam 2 Narrative: GENERAL: Well-appearing, well-nourished, and in no acute distress. HEAD: Normocephalic, atraumatic. ENT: Mucous membranes moist. CHEST: Clear to auscultation. No respiratory distress. HEART: Regular rate and rhythm. Normal peripheral pulses. ABDOMEN: Soft, nontender, nondistended. EXTREMITIES: Normal range of motion. No edema. SKIN: Warm, dry, no rash. NEURO: Alert and oriented x3. PSYCH: Normal mood and affect. Course Course Emergency Course: Patient resting comfortably. Her family informed of results. Will treat UTI outpatient with cephalexin. Vital Signs Vital signs: Vital Signs Temperature 97.6 F 05/11/24 10:14 Pulse Rate 81 05/11/24 10:14 Respiratory Rate 16 05/11/24 10:14 Blood Pressure 141/73 H 05/11/24 10:14 Pulse Oximetry 95 05/11/24 10:14 Oxygen Delivery Room Air 05/11/24 10:14 Temperature 97.6 F 05/11/24 10:20 Pulse Rate 84 05/11/24 13:55 Respiratory Rate 17 05/11/24 13:55 Blood Pressure 143/64 H 05/11/24 13:55 Pulse Oximetry 97 05/11/24 13:55 Oxygen Delivery Room Air 05/11/24 10:20 Medical Decision Making Vital Signs Vital Signs: Vital Signs Temperature 97.6 F 05/11/24 10:14 Pulse Rate 81 05/11/24 10:14 Respiratory Rate 16 05/11/24 10:14 Blood Pressure 141/73 H 05/11/24 10:14 Pulse Oximetry 95 05/11/24 10:14 Oxygen Delivery Room Air 05/11/24 10:14 Temperature 97.6 F 05/11/24 10:20 Pulse Rate 84 05/11/24 13:55 Respiratory Rate 17 05/11/24 13:55 Blood Pressure 143/64 H 05/11/24 13:55 Pulse Oximetry 97 05/11/24 13:55 Oxygen Delivery Room Air 05/11/24 10:20 Lab Data 05/11/24 11:15 05/11/24 11:15 Labs: Lab Results 05/11/24 05/11/24 Range/Units 11:15 13:11 WBC 6.2 (4.5-10.0) K/mm3 RBC 4.08 L (4.2-5.4) M/mm3 Hgb 11.5 L (12.0-15.0) g/dL Hct 35.9 L (37.0-47.0) % MCV 88.0 (80-100) fl MCH 28.2 (26-34) pg MCHC 32.0 (32-36) g/dl RDW 15.8 H (11.5-14.5) % Plt Count 324 (150-375) k/mm3 MPV 9.8 (7.4-10.4) fl Immature Gran % (Auto) 1.8 H (0-0.5) % Neut % (Auto) 76.0 H (45.5-73.1) % Lymph % (Auto) 12.3 L (18.3-44.2) % [place] % (Auto) 7.9 (2.6-8.5) % Eos % (Auto) 0.5 (0-4.4) % Baso % (Auto) 1.5 H (0.2-1.2) % Lymph # (Auto) 0.76 L (0.9-3.2) K/mm3 [place] # (Auto) 0.5 (0.1-0.6) K/mm3 Eos # (Auto) 0.0 (0-0.3) K/mm3 Baso # (Auto) 0.1 (0.0-0.1) K/mm3 Abs Immat Gran (auto) 0.11 H (0.00-0.031) K/mm3 Absolute Neuts (auto) 4.7 (1.3-6.7) K/mm3 Absolute Nucleated RBC 0.000 (0.0-0.012) K/mm3 Nucleated RBC % 0.0 (0.0-0.2) % Sodium 135 L (137-145) mmol/L Potassium 4.3 (3.4-5.0) mmol/L Chloride 103 (98-107) mmol/L Carbon Dioxide 26 (22-30) mmol/L Anion Gap 6 (4-12) mmol/L BUN 17 (7-17) mg/dL Creatinine 1.00 (0.7-1.0) mg/dL Estim Creat Clear Calc 32 ml/min Estimated GFR 53 L (59 - ) Glucose 98 (65-110) mg/dL Calcium 9.3 (8.4-10.2) mg/dL Total Bilirubin 1.1 (0.2-1.3) mg/dL AST 27 (14-36) U/L ALT 11 (6-35) U/L Alkaline Phosphatase 151 H (38-126) U/L Total Protein 8.0 (6.3-8.2) g/dL Albumin 4.2 (3.5-5.1) g/dL Urine Color Yellow (Yellow) Urine Appearance Clear (Clear) Urine pH 5.5 (5.0-9.0) Ur Specific [place] 1.018 (1.001-1.035) Urine Protein Negative (Negative) mg/dL Urine Glucose (UA) 3+ H (Negative) mg/dL Urine Ketones Negative (Negative) mg/dL Ur Blood (Man) 1+ H (Negative) Urine Nitrate Positive H (Negative) Urine Bilirubin Negative (Negative) Urine Urobilinogen 0.2 (<2.0) mg/dL Leukocyte Esterase Rfl 1+ H (Negative) BRANDEE/UL Urine RBC 3-5 H (0-2) /hpf Urine WBC 21-50 H (0-3) /hpf Ur Squamous Epith Cells None seen (Few) /hpf Urine Bacteria 4+ H /hpf Urine Casts 0-2 Influenza A (RT-PCR) Negative (Negative) Influenza B (RT-PCR) Negative (Negative) RSV (RT-PCR) Negative (Negative) SARS-CoV-2 RNA (RT-PCR) Negative (Negative) Discharge Plan Discharge Clinical Impression: Acute UTI Patient Disposition: Home, Self-Care Condition: Stable Instructions: Antibiotic Form, Urinary Tract Infection in Women (ED) Additional Instructions: You should return to the emergency department if you develop severe nausea and vomiting and are unable to keep liquids down, if you develop severe back/flank or stomach pain, or if your symptoms are not clearly improving at home. Patient Language: Grenadian Prescriptions: New cephalexin 500 mg capsule 500 mg PO Q12H Qty: 14 0RF No Action clopidogrel 75 mg tablet 75 mg PO QAM Qty: 90 0RF atorvastatin 80 mg tablet 80 mg PO DAILY Qty: 90 3RF Prilosec OTC 20 mg tablet,delayed release (DR/EC) 20 mg PO DAILY aspirin 81 mg tablet,delayed release (DR/EC) 81 mg PO QAM Qty: 90 0RF bisoprolol fumarate 5 mg tablet 2.5 mg PO HS Qty: 30 3RF ropinirole 0.5 mg tablet 0.5 mg PO HS Qty: 90 1RF Rx Instructions: TAKE 1 TABLET BY MOUTH DAILY Entresto 24-26 mg tablet 0.5 tablet PO Q12HR Patient Comments: SBP > 100 cyanocobalamin (vitamin B-12) 1,000 mcg Tablet 1,000 mcg PO DAILY ferrous sulfate 325 mg (65 mg iron) Tablet 325 mg PO DAILY ascorbic acid (vitamin C) 1,000 mg Capsule 1 g PO DAILY acetaminophen 500 mg Capsule 500 mg PO Q6H PRN (Reason: Pain) Jardiance 10 mg tablet 10 mg PO DAILY levothyroxine 25 mcg tablet 25 mcg PO DAILY@0630 Qty: 90 0RF gabapentin 100 mg capsule 100 mg PO BIDWM@0800,1200 Qty: 60 2RF Creon 12,000-38,000 -60,000 unit capsule,delayed release(DR/EC) 2 cap PO TID 30 Days Qty: 180 2RF Rx Instructions: administer with meals and/or snacks gabapentin 300 mg capsule 300 mg PO QHS Qty: 90 1RF lorazepam 0.5 mg tablet 0.5 mg PO QHS PRN (Reason: anxiety) Qty: 90 0RF citalopram [Celexa] 10 mg tablet 10 mg PO DAILY Qty: 30 3RF spironolactone 25 mg Tablet 25 mg PO DAILY PRN (Reason: Hypertension) Follow-up/Referrals: Lupe Peters MD [Primary Care Provider] - 1 Week
[2024-05-11 11:21] LABS: Basophils Absolute Auto 0.1 K/mm3 (0.0-0.1); Basophils Percent Auto 1.5 % (0.2-1.2); Eosinophils Percent Auto 0.5 % (0-4.4); Hematocrit 35.9 % (37.0-47.0); Hemoglobin 11.5 g/dL (12.0-15.0); Immature Granulocyte Absolute 0.11 K/mm3 (0.00-0.031); Immature Granulocyte Percent A 1.8 % (0-0.5); Lymphocytes Absolute Auto 0.76 K/mm3 (0.9-3.2); Lymphocytes Percent Auto 12.3 % (18.3-44.2); Mean Corpuscular Hemoglobin 28.2 pg (26-34); Mean Platelet Volume 9.8 fl (7.4-10.4); Monocytes Absolute Auto 0.5 K/mm3 (0.1-0.6); Monocytes Percent Auto 7.9 % (2.6-8.5); Neutrophils Absolute Auto 4.7 K/mm3 (1.3-6.7); Platelet Count Result 324 k/mm3 (150-375); Red Blood Count 4.08 M/mm3 (4.2-5.4); Red Cell Distribution Width 15.8 % (11.5-14.5); White Blood Count 6.2 K/mm3 (4.5-10.0)
[2024-05-11 11:32] LABS: Alanine Aminotransferase 11 U/L (6-35); Albumin Level 4.2 g/dL (3.5-5.1); Alkaline Phosphatase 151 U/L (38-126); Anion Gap 6 mmol/L (4-12); Aspartate Amino Transferase 27 U/L (14-36); Bilirubin,Total 1.1 mg/dL (0.2-1.3); Blood Urea Nitrogen 17 mg/dL (7-17); Calcium 9.3 mg/dL (8.4-10.2); Carbon Dioxide 26 mmol/L (22-30); Chloride 103 mmol/L (98-107); Estimated CRCL calculation 32 ml/min; Estimated Glomerular Filt Rate 53; Glucose 98 mg/dL (65-110); Potassium 4.3 mmol/L (3.4-5.0); Sodium 135 mmol/L (137-145)
[2024-05-11 11:57] LABS: Influenza A QL RT-PCR Negative (Negative); Influenza B QL RT-PCR Negative (Negative); RSV RNA, RT-PCR Negative (Negative); SARS-CoV-2 RNA PCR Negative (Negative)
[2024-05-11 13:22] LABS: Add Urine Microscopic? YES; Appearance Urine Clear (Clear); Bacteria Urine 4+ /hpf; Bilirubin Urine Negative (Negative); Blood Urine 1+ (Negative); Color Urine Yellow (Yellow); Glucose Urine UA 3+ mg/dL (Negative); Ketones Urine Negative (Negative); Leukocyte Esterase Ur 1+ LEU/UL (Negative); Nitrate Urine Positive (Negative); Non Pathogenic Casts 0-2; Protein Urine Negative (Negative); Specific Grav Ur 1.018 (1.001-1.035); Squamous Epithelial Cell Urine None Seen /hpf (Few); Urobilinogen Urine 0.2 mg/dL (<2.0); WBC Urine 21-50 /hpf (0-3); pH Urine 5.5 (5.0-9.0)
== END 2024-05-11 14:15 | disposition home or self-care (01) ==
PROVIDERS: Emergency Provider Emergency Medicine; PCP Family Medicine
DX: N39.0 Urinary tract infection, site not specified (principal); Z20.822 Contact with and (suspected) exposure to COVID-19; F01.50 Vascular dementia, unspecified severity, without behavioral disturbance, psychotic disturbance, mood disturbance, and anxiety; I69.351 Hemiplegia and hemiparesis following cerebral infarction affecting right dominant side; Z85.038 Personal history of other malignant neoplasm of large intestine; I13.0 Hypertensive heart and chronic kidney disease with heart failure and stage 1 through stage 4 chronic kidney disease, or unspecified chronic kidney disease; N18.30 Chronic kidney disease, stage 3 unspecified; I50.82 Biventricular heart failure; F41.9 Anxiety disorder, unspecified; E78.5 Hyperlipidemia, unspecified
CPT/HCPCS: 36415; 71046; 80053; 81001; 85025; 87077; 87086; 87186; 87637; 99283